=== PATIENT | female | born 1955 | race Caucasian/White ===

== ENCOUNTER → 2016-07-28 | Outpatient (CLI) | payer BC ==
[~2016-07-28] MED LIST: ATOR10TA88 PO; EPP3/2 IM; HYDR12.55 PO; METO25TA3 PO; PARO10TA PO; vitamin d PO
--- NOTE | 2016-07-28 09:42 | DIAGNOSTIC IMAGING REPORT ---
TWO VIEW CHEST CLINICAL HISTORY: Cough. FINDINGS: PA and lateral chest radiographs are compared to study dated 10/15/2013. The cardiomediastinal silhouette is unremarkable. There is atherosclerotic calcification of the thoracic aorta. Chronic interstitial thickening is unchanged. No airspace consolidation or pleural effusion is identified. Mild apical scarring is observed. There is no pneumothorax. The skeletal structures are osteopenic. The bony thorax appears intact. IMPRESSION: No active disease in the chest. Electronically signed by: Andre Knight M.D. 07/28/2016 9:40 AM Dictated Date/Time: 07/28/2016 9:39 AM
== END | disposition home or self-care (01) ==
LOC: C.RAD1850 09:33
PROVIDERS: ATTEND Family Medicine
DX: R05 Cough (principal); R09.89 Other specified symptoms and signs involving the circulatory and respiratory systems

== ENCOUNTER → 2016-08-01 | Outpatient (CLI) | payer BC ==
--- NOTE | 2016-08-01 13:36 | DIAGNOSTIC IMAGING REPORT ---
RIGHT FOOT 3 VIEWS HISTORY: RIGHT FOOT PAIN Right COMPARISON: None. FINDINGS: There is no fracture or dislocation. Soft tissues are unremarkable. The Lisfranc joint is well aligned. There are mild degenerative changes seen throughout the foot. This most pronounced at the first MTP joint. There is a large plantar heel spur. IMPRESSION: 1. No fracture or dislocation within the right foot. 2. Plantar heel. 3. Mild degenerative changes. Electronically signed by: Travis Mcguire M.D. 08/01/2016 1:34 PM Dictated Date/Time: 08/01/2016 1:32 PM
== END | disposition home or self-care (01) ==
LOC: C.RDSM 14:30
PROVIDERS: ATTEND Physical Medicine & Rehabilitation Sports Medicine
DX: M79.671 Pain in right foot (principal)

== ENCOUNTER → 2016-09-22 | Outpatient (CLI) | payer BC ==
--- NOTE | 2016-09-22 12:05 | DIAGNOSTIC IMAGING REPORT ---
CHEST 2 VIEWS ROUTINE HISTORY: Short of breath. Fatigue. COMPARISON: Chest 07/28/2016. FINDINGS: Small irregular density within the left lung base adjacent to the heart border on the frontal view is not confirmed on the lateral view. This could be due to summation of shadows. Otherwise, the lungs are clear. The heart is normal in size. No pleural effusions. No pneumothorax. IMPRESSION: No acute process. Electronically signed by: Travis Mcguire M.D. 09/22/2016 12:04 PM Dictated Date/Time: 09/22/2016 11:57 AM
== END | disposition home or self-care (01) ==
LOC: C.RAD1850 11:46
PROVIDERS: ATTEND Nurse Practitioner Family
DX: R05 Cough (principal); R06.02 Shortness of breath; R53.83 Other fatigue

== ENCOUNTER 2016-10-10 08:33 | Day surgery (SDC) | payer BC ==
[~2016-10-10 08:33] MED LIST changes: -ATOR10TA88 PO; -METO25TA3 PO; -vitamin d PO
[2016-11-21] MEDS ORDERED: METO25TA3 PO (08:55)
[2016-11-21] MEDS ORDERED: ATOR10TA82 PO (08:55)
[2016-11-21] MEDS ORDERED: vitamin d PO (08:55)
--- NOTE | 2016-11-25 07:18 | EDITING REQUIRED CODING QUERY ---
TREATMENT RENDERED WITHOUT A DIAGNOSIS To promote full compliance with coding requirements relating to patient care, physician participation is requested in all cases of clerical supervisor uncertainty. Please assist us with the question(s) below: Coding Question: The patient is receiving IV RECLAST, as noted in the ORDER HISTORY of the record. Please document the diagnosis that is being addressed by the medication/treatment. Provider Response: Thank you Waleska Cates
== END 2016-11-18 10:40 | disposition home or self-care (01) ==
LOC: C.MTU 08:33
PROVIDERS: ATTEND Family Medicine
DX: M81.0 Age-related osteoporosis without current pathological fracture (principal); Z53.09 Procedure and treatment not carried out because of other contraindication

== ENCOUNTER → 2016-11-06 | Outpatient (CLI) | payer BC ==
[~2016-11-06] MED LIST changes: +ATOR10TA82 PO; +METO25TA3 PO; +vitamin d PO
--- NOTE | 2016-11-06 12:26 | DIAGNOSTIC IMAGING REPORT ---
CHEST 2 VIEWS ROUTINE CLINICAL HISTORY: R05, R07.89 CHEST TIGHTNESS COMPARISON STUDY: 09/22/2016 FINDINGS: The cardiac and mediastinal contours are normal. There is no evidence of focal pulmonary consolidation. There is no evidence of failure. No pleural effusions are visualized.[ There is a stable small triangle opacity adjacent the left heart border inferiorly. This remain similar to 2014, and likely reflects atelectasis or scar. IMPRESSION: No active disease in the chest. Electronically signed by: Francisco Baker M.D. 11/06/2016 12:24 PM Dictated Date/Time: 11/06/2016 12:23 PM
== END | disposition home or self-care (01) ==
LOC: C.RAD1850 12:14
PROVIDERS: ATTEND Nurse Practitioner Family
DX: R05 Cough (principal); R07.89 Other chest pain

== ENCOUNTER → 2016-11-21 | Day surgery (SDC) | payer BC ==
[~2016-11-21] VITALS: Ht 165.1 cm; Wt 90.0 kg
[~2016-11-21] MED LIST changes: +ZOLEDRONIC ACID INJ 5 MG in EMPTY BAG 0 ML IV SCH
[2016-11-21 08:37] VITALS: BP 174/88; PULSE 73; TEMP 36.1; O2SAT 97; Ht 165.1 cm; Wt 90.0 kg
== END | disposition home or self-care (01) ==
LOC: C.MTU 08:17
PROVIDERS: ATTEND Family Medicine
DX: M81.0 Age-related osteoporosis without current pathological fracture (principal)

== ENCOUNTER → 2017-04-13 | Outpatient (CLI) | payer BC ==
[~2017-04-13] MED LIST changes: -ATOR10TA82 PO; +ATOR10TA88 PO; -HYDR12.55 PO; -ZOLEDRONIC ACID INJ 5 MG in EMPTY BAG 0 ML IV SCH
== END | disposition home or self-care (01) ==
LOC: C.RDSM 10:29
PROVIDERS: ATTEND Physical Medicine & Rehabilitation Sports Medicine
DX: M77.51 Other enthesopathy of right foot and ankle (principal)

== ENCOUNTER → 2017-04-24 | Outpatient (CLI) | payer BC ==
--- NOTE | 2017-04-24 15:47 | MAMMOGRAPHY REPORT ---
BILATERAL DIGITAL SCREENING MAMMOGRAM TOMOSYNTHESIS WITH CAD: 04/24/2017 CLINICAL HISTORY: Routine screening. Patient has no complaints. TECHNIQUE: Breast tomosynthesis in addition to standard 2D mammography was performed. Current study was also evaluated with a Computer Aided Detection (CAD) system. COMPARISON: Comparison is made to exams dated: 04/18/2016 mammogram, 02/22/2014 mammogram, 02/16/2013 ma mmogram, 02/11/2012 mammogram, 02/03/2011 mammogram, and 01/30/2010 mammogram - [facility] nter. BREAST COMPOSITION: There are scattered areas of fibroglandular density in both breasts. FINDINGS: No suspicious masses, calcifications, or areas of architectural distortion are noted in ei ther breast. There has been no significant interval change compared to prior exams. Scattered bilater al benign-appearing calcifications are not significantly changed. A linear scar marker denotes a sca r on the right upper outer breast. IMPRESSION: ACR BI-RADS CATEGORY 2: BENIGN There is no mammographic evidence of malignancy. A 1 year screening mammogram is recommended. The pa tient will receive written notification of the results. Approximately 10% of breast cancers are not detected with mammography. A negative mammographic report should not delay biopsy if a clinically suggestive mass is present. Bruna Garcia M.D. /:04/24/2017 10:48:26 Plastic Surgery Assistant: Zainab Ivy, [facility] letter sent: Normal 1/2 BI-RADS Code: ACR BI-RADS Category 2: Benign
== END | disposition home or self-care (01) ==
LOC: C.MAMM 08:55
PROVIDERS: ATTEND Family Medicine
DX: Z12.31 Encounter for screening mammogram for malignant neoplasm of breast (principal)

== ENCOUNTER 2017-07-10 14:41 | Emergency (ER) | payer BC ==
[~2017-07-10] VITALS: Ht 165.1 cm; Wt 94.8 kg
[~2017-07-10 14:41] MED LIST changes: +ATOR10TA82 PO; -ATOR10TA88 PO; -PARO10TA PO
[2017-07-10 14:46] VITALS: TEMP 36.7; Ht 165.1 cm; Wt 94.8 kg
[2017-07-10] MEDS ORDERED: PARO10TA PO (14:55)
[2017-07-10] MEDS ORDERED: KETOROLAC TROMETHAMINE 30 MG/ML VIAL IV STA (14:56)
[2017-07-10] MEDS ORDERED: AMPICILLIN/SULBACTAM SOD INJ 3,000 MG in SODIUM CHLORIDE 0.9% 100ML 100 ML IV STA (14:56)
[2017-07-10 15:27] LABS: BASO % 0.3 %; BASO ABS # 0.03 K/uL (0-0.2); COMPLETE YES; EOS % 1.4 %; HEMATOCRIT 39.9 % (37-47); IG% 0.2 %; LYMPH % 16.1 %; LYMPH ABS # 1.85 K/uL (1.2-3.4); MEAN CELL VOLUME 97.6 fL (80-100); MEAN CORPUSCULAR HGB CONC 33.8 g/dl (32-36); MONO % 9.5 %; NEUT % 72.5 %; PLATELET COUNT 226 K/uL (130-400); RED BLOOD COUNT 4.09 M/uL (4.2-5.4); WHITE BLOOD COUNT 11.51 K/uL (4.8-10.8)
[2017-07-10 15:34] LABS: BUN/CREATININE RATIO 21.8 (10-20); C-REACTIVE PROTEIN 9.92 mg/dl (0-0.29); CALCIUM 9.1 mg/dl (8.5-10.1); CREATININE 0.87 mg/dl (0.60-1.20); POTASSIUM 3.8 mmol/L (3.5-5.1)
--- NOTE | 2017-07-10 15:48 | DIAGNOSTIC IMAGING REPORT ---
L HAND MIN 3 VIEWS ROUTINE CLINICAL HISTORY: Cat bite L hand with infection. COMPARISON: None FINDINGS: Alignment of the left hand is anatomic. A sclerotic focus within the distal phalanx of the left thumb is benign. There is no fracture. There is no radiographic evidence of osteomyelitis within the left hand or wrist. Lateral view demonstrates suspected mild soft tissue swelling of the dorsal left hand. IMPRESSION: No fracture or evidence of osteomyelitis within the left hand. Electronically signed by: Morgan Moore M.D. 07/10/2017 3:46 PM Dictated Date/Time: 07/10/2017 3:44 PM
[2017-07-10] MEDS ORDERED: METR-163 PO (15:51)
[2017-07-10] MEDS ORDERED: DOXY100C PO (15:51)
--- NOTE | 2017-07-10 15:55 | EMERGENCY ROOM VISIT NOTE ---
History First contact with patient: 14:48 Chief Complaint: BITE Stated Complaint: L HAND PAIN,SWELLING/REDNESS, CAT BITE History of Present Illness The patient is a 62 year old female who presents to the Emergency Room with complaints of progressively worsening infection to the left hand after being bitten by her cat Thursday evening. 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 The patient reports progressively worsening swelling, redness and pain. She denies any fevers or chills, and rates her discomfort an 8 out of 10. The patient is [id number]. She denies any paresthesias or numbness of the left upper extremity. Tetanus immunization is up-to-date. She also reports that the cats rabies series is also up-to-date. Review of Systems HEENT: Denies dizziness, visual problems, hearing loss, tinnitus. Denies difficulty swallowing or oral lesions. PULMONARY: Denies cough, shortness of breath, sputum production or hemoptysis. CARDIOVASCULAR: Denies chest pain, palpitations, dyspnea on exertion, orthopnea or peripheral edema. GASTROINTESTINAL: Denies diarrhea, constipation, nausea, vomiting, or abdominal pain. GENITOURINARY: Denies dysuria, frequency, urgency or nocturia. NEUROLOGIC: Denies history of epilepsy, CVA, TIA or chronic headaches. MUSCULOSKELETAL: Denies history of joint tenderness/swelling. SKIN: Denies rashes or lesions. PSYCHIATRIC: Denies history of depression or mental illness. ENDOCRINE: Denies history of diabetes or thyroid disorders. Past Medical/Surgical History Medical Problems: (1) Depressive Disorder Nec (2) History Of Tobacco Use (3) Hyperlipidemia Nec/Nos (4) Hypertension Nos Family History Unremarkable Social History Smoking Status: Never Smoker Alcohol Use: occasionally Occupation Status: employed Current/Historical Medications Scheduled Atorvastatin (Lipitor), 10 MG PO DAILY Doxycycline Hyclate (Vibramycin), 100 MG PO BID Epinephrine (Epipen), 0.3 MG IM UD Metoprolol Succinate (Toprol Xl), 25 MG PO BID Metronidazole (Flagyl), 500 MG PO TID Paroxetine Hcl (Paxil), 10 MG PO DAILY [vitamin d], 2,000 INTER.UNIT PO DIRECTED Physical Exam Vital Signs Date Time Temp Pulse Resp B/P (MAP) Pulse Ox O2 Delivery O2 Flow Rate FiO2 07/10/17 14:46 36.7 88 18 153/93 96 Room Air Physical Exam CONSTITUTIONAL: Healthy and well nourished. Alert and oriented X 3 with positive affect. Patient does not appear acutely ill or toxic. HEENT: Normocephalic, atraumatic. Pupils equal, round and reactive. NECK: Full active range of motion without discomfort. RESPIRATORY: Clear to auscultation bilaterally with no wheezing, crackles, rhonchi or stridor. CARDIOVASCULAR: Regular rate and rhythm with no murmurs, rubs or gallops. MUSCULOSKELETAL: Examination of the left hand shows evidence for prior puncture wounds dorsally. She also has notable erythema that extends just past the extensor crease of the wrist. She has minimal tenderness to palpation through the dorsal forearm, and no tenderness to palpation through the flexor tendons. Capillary refill is less than 2 seconds. INTEGUMENTARY: No rash or other significant dermatologic conditions noted. NEUROLOGIC: Left hand and fingers are sensory intact. Medical Decision & Procedures ER Provider Diagnostic Interpretation: My interpretation of left hand x-rays does not show any fractures, dislocations , radiopaque foreign bodies or evidence for osteomyelitis. Radiologist report is as follows: L HAND MIN 3 VIEWS ROUTINE CLINICAL HISTORY: Cat bite L hand with infection. COMPARISON: None FINDINGS: Alignment of the left hand is anatomic. A sclerotic focus within the distal phalanx of the left thumb is benign. There is no fracture. There is no radiographic evidence of osteomyelitis within the left hand or wrist. Lateral view demonstrates suspected mild soft tissue swelling of the dorsal left hand. IMPRESSION: No fracture or evidence of osteomyelitis within the left hand. Laboratory Results 07/10/17 15:00 Red Blood Count 4.09, Mean Corpuscular Volume 97.6, Mean Corpuscular Hemoglobin 33.0, Mean Corpuscular Hemoglobin Concent 33.8, Mean Platelet Volume 10.0, Neutrophils (%) (Auto) 72.5, Lymphocytes (%) (Auto) 16.1, Monocytes (%) (Auto) 9.5, Eosinophils (%) (Auto) 1.4, Basophils (%) (Auto) 0.3, Neutrophils # (Auto) 8.36, Lymphocytes # (Auto) 1.85, Monocytes # (Auto) 1.09, Eosinophils # (Auto) 0.16, Basophils # (Auto) 0.03 07/10/17 15:00 Test 07/10/17 15:00 White Blood Count 11.51 K/uL (4.8-10.8) Red Blood Count 4.09 M/uL (4.2-5.4) Hemoglobin 13.5 g/dL (12.0-16.0) Hematocrit 39.9 % (37-47) Mean Corpuscular Volume 97.6 fL (80-100) Mean Corpuscular Hemoglobin 33.0 pg (25-34) Mean Corpuscular Hemoglobin Concent 33.8 g/dl (32-36) Platelet Count 226 K/uL (130-400) Mean Platelet Volume 10.0 fL (7.4-10.4) Neutrophils (%) (Auto) 72.5 % Lymphocytes (%) (Auto) 16.1 % Monocytes (%) (Auto) 9.5 % Eosinophils (%) (Auto) 1.4 % Basophils (%) (Auto) 0.3 % Neutrophils # (Auto) 8.36 K/uL (1.4-6.5) Lymphocytes # (Auto) 1.85 K/uL (1.2-3.4) Monocytes # (Auto) 1.09 K/uL (0.11-0.59) Eosinophils # (Auto) 0.16 K/uL (0-0.5) Basophils # (Auto) 0.03 K/uL (0-0.2) RDW Standard Deviation 46.8 fL (36.4-46.3) RDW Coefficient of Variation 13.1 % (11.5-14.5) Immature Granulocyte % (Auto) 0.2 % Immature Granulocyte # (Auto) 0.02 K/uL (0.00-0.02) Erythrocyte Sedimentation Rate 19 mm/hr (0-21) Anion Gap 6.0 mmol/L (3-11) Est Creatinine Clear Calc Drug Dose 74.4 ml/min Estimated GFR () 81.6 Estimated GFR (Non- 70.4 BUN/Creatinine Ratio 21.8 (10-20) Calcium Level 9.1 mg/dl (8.5-10.1) C-Reactive Protein 9.92 mg/dl (0-0.29) The above labs were reviewed. Patient has a mild leukocytosis without bandemia. Left shift is noted. CRP is also markedly elevated with a normal sedimentation rate. Medications Administered Medications (Trade) Dose Ordered Sig/Louann Route Start Time Stop Time Status Last Admin Dose Admin Ampicillin Sodium/ Sulbactam Sodium 3000 mg/Sodium Chloride 108 ml @ 200 mls/hr NOW STAT IV 07/10/17 14:56 07/10/17 15:28 DC 07/10/17 15:19 200 MLS/HR Ketorolac Tromethamine (Toradol Inj) 30 mg NOW STAT IV 07/10/17 14:56 07/10/17 15:07 DC 07/10/17 15:20 30 MG ED Course Patient history and physical exam were performed. Nurse's notes were reviewed. Vital signs were reviewed. The patient is hypertensive with a blood pressure 153/93. She is afebrile and not tachycardic. Examination shows evidence for a localized hand cellulitis. Based on clinical exam, I do not suspect an infectious tenosynovitis at this point. I did suggest administering IV antibiotics, and the patient was in agreement. I also discussed the case further with our hospital pharmacist, especially given that the patient has already had 3 doses of Augmentin and IM Rocephin without relief. The pharmacist recommended IV Unasyn, followed by a combination doxycycline and Flagyl antibiotic regimen. I will also have the patient return in 24 hours for a wound recheck. IV access was established, and labs were drawn. Review of labs shows a mild leukocytosis with left shift and no bandemia. CRP is also markedly elevated without elevated sedimentation rate. X-rays of the left hand were normal. The patient was administered Unasyn 3 g IV infusion. The patient will be provided prescriptions for doxycycline 100 mg twice a day and Flagyl 500 mg 3 times a day 10 days. The patient will return in 24 hours to be rechecked by me , but was instructed to return sooner for any progressively worsening redness, swelling, pain or developing fever. The patient was happy with plan of care, and voiced understanding of all discharge instructions. The patient was also encouraged to follow-up with her PCP to discuss her elevated blood pressure reading. Medical Decision Medication Reconcilliation Current Medication List: was personally reviewed by me Blood Pressure Screening Patient's blood pressure: Elevated blood pressure Blood pressure disposition: Referred to PCP Impression Primary Impression: Cat bite of left hand with infection Additional Impression: Elevated blood pressure reading Departure Information Prescriptions Metronidazole (Flagyl) 500 Mg Tab 500 MG PO TID for Pain for 10 Days, #30 TAB For Initial Treatment Prov: Pedro Pablo Lemos PA 07/10/17 Doxycycline Hyclate (VIBRAMYCIN) 100 Mg Cap 100 MG PO BID for 10 Days, #20 CAP Prov: Pedro Pablo Lemos PA 07/10/17 Referrals Nba Mcgee M.D. (PCP) Patient Instructions [facility] Problem Qualifiers Primary Impression: Cat bite of left hand with infection Encounter type: initial encounter Qualified Codes: S61.452A - Open bite of left hand, initial encounter; L08.9 - Local infection of the skin and subcutaneous tissue, unspecified; W55.01XA - Bitten by cat, initial encounter
[2017-07-10 16:11] VITALS: BP 127/76; PULSE 80; O2SAT 97
[2017-07-10] MEDS ORDERED: CHOL2000 PO (16:11)
[2017-07-10] MEDS ORDERED: AMOX875T PO (16:14)
[2017-07-11] MEDS ORDERED: EFF75 PO (10:36)
== END 2017-07-10 16:12 | disposition home or self-care (01) ==
LOC: C.EDB 14:42 → C.EDD 16:12
DX: S61.452A Open bite of left hand, initial encounter (principal); L08.9 Local infection of the skin and subcutaneous tissue, unspecified; I10 Essential (primary) hypertension; W55.01XA Bitten by cat, initial encounter; F32.9 Major depressive disorder, single episode, unspecified; E78.5 Hyperlipidemia, unspecified; Z87.891 Personal history of nicotine dependence

== ENCOUNTER 2017-07-11 10:10 | Inpatient (IN) | payer BC ==
[~2017-07-11] VITALS: Ht 165.1 cm; Wt 94.8 kg
[~2017-07-11 10:10] MED LIST changes: +AMOX875T PO; +CHOL2000 PO; +DOXY100C PO; +METR-163 PO; +PARO10TA PO; -vitamin d PO
[2017-07-11] MEDS ORDERED: KETOROLAC TROMETHAMINE 30 MG/ML VIAL IV STA (10:31)
[2017-07-11] MEDS ORDERED: PIPERACILLIN/TAZOBACTAM 4.5 GM/100ML D5W IV STA (10:31)
[2017-07-11] MEDS ORDERED: EFF75 PO (10:36)
[2017-07-11 11:11] LABS: BASO % 0.4 %; BASO ABS # 0.03 K/uL (0-0.2); COMPLETE YES; EOS % 3.4 %; HEMATOCRIT 37.5 % (37-47); IG% 0.3 %; LYMPH % 28.9 %; LYMPH ABS # 2.11 K/uL (1.2-3.4); MEAN CELL VOLUME 97.4 fL (80-100); MEAN CORPUSCULAR HGB CONC 33.9 g/dl (32-36); MEAN PLATELET VOLUME 9.7 fL (7.4-10.4); PLATELET COUNT 211 K/uL (130-400); RED BLOOD COUNT 3.85 M/uL (4.2-5.4)
[2017-07-11 11:15] VITALS: O2SAT 94; Ht 165.1 cm; Wt 94.8 kg
[2017-07-11 11:25] LABS: BLOOD UREA NITROGEN 15 mg/dl (7-18); BUN/CREATININE RATIO 23.3 (10-20); C-REACTIVE PROTEIN 9.49 mg/dl (0-0.29); CALCIUM 8.2 mg/dl (8.5-10.1); CARBON DIOXIDE 23 mmol/L (21-32); CHLORIDE 107 mmol/L (98-107); CREATININE 0.63 mg/dl (0.60-1.20); GLUCOSE 117 mg/dl (70-99); SODIUM 136 mmol/L (136-145)
--- NOTE | 2017-07-11 11:28 | History and Physical ---
History & Physical Date & Time of Service: Jul 11, 2017 at 11:03 Chief Complaint: L Hand Not Improving,Numb Primary Care Physician: Nba Mcgee M.D. 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 She was playing with her cat 4 days ago. The cat got excited and bit her in her hand. Cat is normal does not have any symptoms suspicious behavior for rabies. Also the cat is Up-to-date with her vaccines and does go outside in the residential neighborhood, does not interact with any wild animals. She cleaned the wound with soap and water . She was giving Augmentin but the wound and the cellulitis gets worse. She was giving ceftriaxone 1 g at the office of her Medicare physician. She also presented to the ED and received Unasyn and was discharged on doxycycline and Flagyl. Her hand continued to get worse when she presented to the ED for further evaluation. If erythema is expanding. She describes the pain being 8-10 / 10 Social History Smoking Status: Former Smoker Housing status: lives alone Occupational Status: employed Multi-Drug Resistant Organisms History of MDRO: No Allergies Coded Allergies: Niacin (Verified Allergy, Unknown, "severe skin rash", 07/11/17) Home Medications Scheduled Amoxicillin & Pot Clavulanate (Augmentin 875-125 mg), 1 TAB PO TID Atorvastatin (Lipitor), 10 MG PO DAILY Cholecalciferol (Vitamin D3), 2,000 INTER.UNIT PO DAILY Doxycycline Hyclate (Vibramycin), 100 MG PO BID Metoprolol Succinate (Toprol Xl), 25 MG PO BID Metronidazole (Flagyl), 500 MG PO TID Paroxetine Hcl (Paxil), 10 MG PO DAILY Venlafaxine Hcl (Effexor), 75 MG PO DAILY Scheduled PRN Epinephrine (Epipen), 0.3 MG IM UD PRN for Allergic Reaction Review of Systems Constitutional: No fever, No chills, No sweats, No weight loss, No weakness, No fatigue, No problem reported Eyes: No worsening of vision, No eye pain, No redness, No discharge, No diplopia, No problem reported ENT: No hearing loss, No unusual epistaxis, No nasal symptoms, No sore throat, No tinnitus, No dental problems, No trouble swallowing, No problem reported Respiratory: No cough, No sputum, No wheezing, No shortness of breath, No dyspnea on exertion, No dyspnea at rest, No hemoptysis, No problem reported Cardiovascular: No chest pain, No orthopnea, No PND, No edema, No claudication , No palpitations, No problem reported Abdomen: No pain, No nausea, No vomiting, No diarrhea, No constipation, No GI bleeding, No problem reported Musculoskeletal: + problem reported (left hand pain/swelling/erythema), No joint pain, No muscle pain, No swelling, No calf pain Genitourinary - Female: No dysuria, No urinary frequency, No urinary urgency, No urinary incontinence, No urinary retention, No hematuria, No dysmenorrhea, No menorrhagia, No metrorrhagia, No rash, No vaginal bleeding, No vaginal discharge, No vaginal itching, No vulvodynia, No , No problem reported Neurologic: No memory loss, No paralysis, No weakness, No numbness/tingling, No vertigo, No balance problems, No problem reported Psychiatric: No depression symptoms, No anhedonism, No anxiety, No insomnia, No substance abuse, No problem reported Endocrine: No fatigue, No excessive thirst, No excessive urination, No problem reported Hematologic / Lymphatic: No abnormal bleeding/bruising, No clotting problems, No swollen lymph nodes, No night sweats, No problem reported Integumentary: No rash, No itch, No new/changing skin lesions, No color change , No bleeding, No problem reported Physical Exam Vital Signs Date Time Temp Pulse Resp B/P (MAP) Pulse Ox O2 Delivery O2 Flow Rate FiO2 07/11/17 10:14 36.8 86 20 160/93 94 Room Air General Appearance: WD/WN, no apparent distress Head: normocephalic, atraumatic Eyes: normal inspection, EOMI ENT: normal ENT inspection, hearing grossly normal Neck: supple Respiratory/Chest: chest non-tender, lungs clear, normal breath sounds, no respiratory distress, no accessory muscle use Cardiovascular: regular rate, rhythm, no edema, no gallop, no JVD, no murmur, normal peripheral pulses Abdomen/GI: normal bowel sounds, non tender, soft, no organomegaly, no pulsatile mass Back: normal inspection, no CVA tenderness Extremities/Musculoskelatal: normal inspection, + pertinent finding (left hand tenderness/swelling/erythema, capillary filling is normal, normal pulsation) Neurologic/Psych: departure clerk II-XII nml as tested, no motor/sensory deficits, alert, normal mood/affect, normal reflexes, oriented x 3 Skin: normal color, warm/dry, no rash Diagnostics Laboratory Results Results Past 24 Hours Test 07/11/17 10:31 Range/Units Microbiology Results 07/11/17 Blood Culture, Ordered Pending 07/11/17 Blood Culture, Ordered Pending Impression Assessment and Plan 62 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 Patient failed outpatient Augmentin/doxycycline/Flagyl. This is her second visit to the ED after her wound got worse. Cat is up-to-date with her vaccines. In-home cat, only walks i the residential neighborhood , no interaction with animals. 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
[2017-07-11] MEDS ORDERED: ACETAMINOPHEN 325 MG TAB PO PRN (11:30)
[2017-07-11] MEDS ORDERED: POLYETHYLENE (MIRALAX) 17 GM PACK PO PRN (11:30)
[2017-07-11] MEDS ORDERED: ZOLPIDEM TARTRATE 5 MG TAB PO PRN (11:30)
[2017-07-11] MEDS ORDERED: ALUMINUM/MAGNESIUM/SIMETH (MAALOX MAX) 30 ML UDC PO PRN (11:30)
[2017-07-11] MEDS ORDERED: MAGNESIUM HYDROXIDE SUSP 30 ML UDC PO PRN (11:30)
[2017-07-11] MEDS ORDERED: ONDANSETRON INJ 2 MG/ML 2 ML VIAL IV STA (11:38)
[2017-07-11] MEDS ORDERED: MoRPHine SULFATE 4 MG/ML 1 ML CARP\\VIAL IV STA (11:38)
[2017-07-11] MEDS ORDERED: OPTIRAY 320 IV PRN (11:45)
--- NOTE | 2017-07-11 12:06 | EMERGENCY ROOM VISIT NOTE ---
History First contact with patient: 10:20 Chief Complaint: ARM PAIN Stated Complaint: L HAND NOT IMPROVING,NUMB History of Present Illness The patient is a 62 year old female who presents to the Emergency Room with complaints of progressively worsening infection of the left hand. I saw this patient yesterday in the emergency department for evaluation after suffering a cat bite to the hand Thursday night. The patient was administered Rocephin 1 g IM the following morning, and completed a 3 dose course of Augmentin without any improvement of her symptoms. When I saw the patient yesterday, I spoke with our hospital pharmacist who recommended switching the patient to doxycycline and Flagyl. The patient reports progressively worsening swelling, redness and pain, rating her discomfort an 8 out of 10. The patient is right- hand-dominant. Review of Systems HEENT: Denies dizziness, visual problems, hearing loss, tinnitus. Denies difficulty swallowing or oral lesions. PULMONARY: Denies cough, shortness of breath, sputum production or hemoptysis. CARDIOVASCULAR: Denies chest pain, palpitations, dyspnea on exertion, orthopnea or peripheral edema. GASTROINTESTINAL: Denies diarrhea, constipation, nausea, vomiting, or abdominal pain. GENITOURINARY: Denies dysuria, frequency, urgency or nocturia. NEUROLOGIC: Denies history of epilepsy, CVA, TIA or chronic headaches. MUSCULOSKELETAL: Denies history of joint tenderness/swelling. SKIN: Denies rashes or lesions. PSYCHIATRIC: Denies history of depression or mental illness. ENDOCRINE: Denies history of diabetes or thyroid disorders. Past Medical/Surgical History Medical Problems: (1) Cellulitis of hand (2) Depressive Disorder Nec (3) History Of Tobacco Use (4) Hyperlipidemia Nec/Nos (5) Hypertension Nos Family History Unremarkable Social History Smoking Status: Former Smoker Alcohol Use: occasionally Occupation Status: employed Current/Historical Medications Scheduled Amoxicillin & Pot Clavulanate (Augmentin 875-125 mg), 1 TAB PO TID Atorvastatin (Lipitor), 10 MG PO DAILY Cholecalciferol (Vitamin D3), 2,000 INTER.UNIT PO DAILY Doxycycline Hyclate (Vibramycin), 100 MG PO BID Metoprolol Succinate (Toprol Xl), 25 MG PO BID Metronidazole (Flagyl), 500 MG PO TID Paroxetine Hcl (Paxil), 10 MG PO DAILY Venlafaxine Hcl (Effexor), 75 MG PO DAILY Scheduled PRN Epinephrine (Epipen), 0.3 MG IM UD PRN for Allergic Reaction Physical Exam Vital Signs Date Time Temp Pulse Resp B/P (MAP) Pulse Ox O2 Delivery O2 Flow Rate FiO2 07/11/17 11:15 94 Room Air 07/11/17 10:45 72 20 135/78 96 Room Air 07/11/17 10:14 36.8 86 20 160/93 94 Room Air Physical Exam CONSTITUTIONAL: Healthy and well nourished. Alert and oriented X 3 with positive affect. Patient appears in moderate discomfort. HEENT: Normocephalic, atraumatic. Pupils equal, round and reactive. NECK: Full active range of motion without discomfort. RESPIRATORY: Clear to auscultation bilaterally with no wheezing, crackles, rhonchi or stridor. CARDIOVASCULAR: Regular rate and rhythm with no murmurs, rubs or gallops. GASTROINTESTINAL: Bowel sounds present in all quadrants. Soft and nontender to palpation. MUSCULOSKELETAL: Examination of the left upper extremity shows worsening edema and erythema of the dorsal left hand. Erythema and edema now extends into the dorsal mid forearm, having advanced from the extensor crease since yesterday. She also has worsening discomfort with passive flexion and extension of the fingers and wrist. Capillary refill of the fingers is less than 2 seconds. INTEGUMENTARY: No rash or other significant dermatologic conditions noted. NEUROLOGIC: No focal neurologic deficits noted. Left hand and fingers are grossly sensory intact. Medical Decision & Procedures Laboratory Results 07/11/17 10:45 Red Blood Count 3.85, Mean Corpuscular Volume 97.4, Mean Corpuscular Hemoglobin 33.0, Mean Corpuscular Hemoglobin Concent 33.9, Mean Platelet Volume 9.7, Neutrophils (%) (Auto) 58.0, Lymphocytes (%) (Auto) 28.9, Monocytes (%) (Auto) 9.0, Eosinophils (%) (Auto) 3.4, Basophils (%) (Auto) 0.4, Neutrophils # (Auto) 4.23, Lymphocytes # (Auto) 2.11, Monocytes # (Auto) 0.66, Eosinophils # (Auto) 0.25, Basophils # (Auto) 0.03 07/11/17 10:45 Test 07/11/17 10:45 07/11/17 10:54 07/11/17 11:36 White Blood Count 7.30 K/uL (4.8-10.8) Red Blood Count 3.85 M/uL (4.2-5.4) Hemoglobin 12.7 g/dL (12.0-16.0) Hematocrit 37.5 % (37-47) Mean Corpuscular Volume 97.4 fL (80-100) Mean Corpuscular Hemoglobin 33.0 pg (25-34) Mean Corpuscular Hemoglobin Concent 33.9 g/dl (32-36) Platelet Count 211 K/uL (130-400) Mean Platelet Volume 9.7 fL (7.4-10.4) Neutrophils (%) (Auto) 58.0 % Lymphocytes (%) (Auto) 28.9 % Monocytes (%) (Auto) 9.0 % Eosinophils (%) (Auto) 3.4 % Basophils (%) (Auto) 0.4 % Neutrophils # (Auto) 4.23 K/uL (1.4-6.5) Lymphocytes # (Auto) 2.11 K/uL (1.2-3.4) Monocytes # (Auto) 0.66 K/uL (0.11-0.59) Eosinophils # (Auto) 0.25 K/uL (0-0.5) Basophils # (Auto) 0.03 K/uL (0-0.2) RDW Standard Deviation 46.9 fL (36.4-46.3) RDW Coefficient of Variation 13.2 % (11.5-14.5) Immature Granulocyte % (Auto) 0.3 % Immature Granulocyte # (Auto) 0.02 K/uL (0.00-0.02) Erythrocyte Sedimentation Rate 21 mm/hr (0-21) Anion Gap 6.0 mmol/L (3-11) Estimated GFR () 109.9 Estimated GFR (Non- 94.8 BUN/Creatinine Ratio 23.3 (10-20) Calcium Level 8.2 mg/dl (8.5-10.1) C-Reactive Protein 9.49 mg/dl (0-0.29) Bedside Lactic Acid Venous 0.75 mmol/L (0.90-1.70) The above labs were reviewed. Compared to 24 hours ago, the patient's leukocytosis has resolved. She still has a markedly elevated CRP without levators sedimentation rate. Bedside lactate is also normal. Blood cultures 2 were ordered and are pending. Medications Administered Medications (Trade) Dose Ordered Sig/Louann Route Start Time Stop Time Status Last Admin Dose Admin Ketorolac Tromethamine (Toradol Inj) 30 mg NOW STAT IV 07/11/17 10:31 07/11/17 10:35 DC 07/11/17 10:40 30 MG Piperacillin Sod/ Tazobactam Sod (Zosyn Iv) 4.5 gm NOW STAT IV 07/11/17 10:31 07/11/17 10:35 DC 07/11/17 10:31 4.5 GM Morphine Sulfate (MoRPHine SULFATE INJ) 4 mg NOW STAT IV 07/11/17 11:38 07/11/17 11:39 DC 07/11/17 11:47 4 MG Ondansetron HCl (Zofran Inj) 4 mg NOW STAT IV 07/11/17 11:38 07/11/17 11:39 DC 07/11/17 11:47 4 MG ED Course Patient history and physical exam were performed. Nurse's notes were reviewed. Vital signs were reviewed. The patient remains afebrile and not tachycardic. Her blood pressure again is elevated at 160/93. The patient appears in moderate discomfort. Her clinical exam shows a worsening infection. At this point, I suggested hospitalist and orthopedic management, and the patient was in agreement. IV access was established, and labs were drawn, including blood cultures 2 and point of care lactate. The patient was administered IV Toradol for pain, refusing any stronger analgesics on initial exam. The patient was also ordered Zosyn 4.5 g IV infusion. Review of labs The case was further discussed with Dr. Garduno, ED attending physician, who recommended hospitalist consultation. The case was then discussed with the [facility] hospitalist service. Please see their dictation for further treatment and final disposition. I also spoke with Dr. Pavon, orthopedic surgeon bone drier operator, who also recommended IV antibiotic treatment , and at this point nonsurgical management. Prior to transfer of care to the hospitalist service, the patient did request something additional for pain, and was ordered morphine 4 mg and Zofran 4 mg IVP. Medical Decision Patient presents after failing outpatient management of a cat bite to the left hand. The patient has been treated with multiple antibiotics at this point with oral Augmentin, intramuscular Rocephin, and most recently a combination therapy of doxycycline and Flagyl. I do feel that the patient warrants inpatient management with intravenous antibiotics. Medication Reconcilliation Current Medication List: was personally reviewed by me Blood Pressure Screening Patient's blood pressure: Elevated blood pressure Impression Primary Impression: Cat bite of left hand with infection Departure Information Referrals Nba Mcgee M.D. (PCP) Patient Instructions My [facility] Problem Qualifiers Primary Impression: Cat bite of left hand with infection Encounter type: subsequent encounter Qualified Codes: S61.452D - Open bite of left hand, subsequent encounter; L08.9 - Local infection of the skin and subcutaneous tissue, unspecified; W55.01XD - Bitten by cat, subsequent encounter
[2017-07-11] MEDS ORDERED: VANCOMYCIN CONSULT ACTIVE PRN (12:15)
--- NOTE | 2017-07-11 12:28 | DIAGNOSTIC IMAGING REPORT ---
LEFT HAND CT CT DOSE: 519.94 mGy.cm HISTORY: cellulitis left hand/ forearm TECHNIQUE: Multiaxial CT images of the left hand were performed and reformatted in the sagittal and coronal plane following the use of intravenous contrast. A dose lowering technique was utilized adhering to the principles of ALARA. COMPARISON: Left hand 07/10/2017. FINDINGS: Mild subcutaneous edema and skin thickening within the dorsum of the hand. No loculated fluid collections to suggest an abscess. The major vessels appear patent. The deep soft tissues appear intact. No soft tissue gas identified. No fracture or dislocation within the hand. No underlying bony destruction to suggest osteomyelitis. IMPRESSION: Mild subcutaneous edema and skin thickening within the dorsum of the hand suggestive of a cellulitis. No loculated fluid collections to suggest an abscess. Electronically signed by: Travis Mcguire M.D. 07/11/2017 12:27 PM Dictated Date/Time: 07/11/2017 12:23 PM
[2017-07-11 12:30] VITALS: BP 138/96; PULSE 77; TEMP 37.3; O2SAT 92
[2017-07-11] MEDS ORDERED: VANCOMYCIN INJ 2,250 MG in SODIUM CHLORIDE 0.9% 500ML 500 ML IV SCH (12:30)
[2017-07-11] MEDS: SODIUM CHLORIDE 0.9% 1000ML 1,000 ML IV SCH (13:23)
--- NOTE | 2017-07-11 13:33 | Pharmacy Progress Note ---
Pharmacy Antibiotic Consult Date of Service: Jul 11, 2017. Pharmacy Dosing Scope Pharmacy is consulted to initiate vancomycin IV dosing therapy, order appropriate labs and adjust drug dose/frequency. Subjective The patient is a 62 year old female admitted on Jul 11, 2017 at 11:33. She had cat-bite 4 days ago and cellulitis is getting worse despite outpatient antibiotics. Objective Height (Feet): 5 Height (Inches): 5.00 Weight (Kilograms): 94.800 Lab Results (24hrs): Test 07/11/17 10:45 07/11/17 10:54 07/11/17 11:36 White Blood Count 7.30 K/uL (4.8-10.8) Red Blood Count 3.85 M/uL (4.2-5.4) Hemoglobin 12.7 g/dL (12.0-16.0) Hematocrit 37.5 % (37-47) Mean Corpuscular Volume 97.4 fL (80-100) Mean Corpuscular Hemoglobin 33.0 pg (25-34) Mean Corpuscular Hemoglobin Concent 33.9 g/dl (32-36) Platelet Count 211 K/uL (130-400) Mean Platelet Volume 9.7 fL (7.4-10.4) Neutrophils (%) (Auto) 58.0 % Lymphocytes (%) (Auto) 28.9 % Monocytes (%) (Auto) 9.0 % Eosinophils (%) (Auto) 3.4 % Basophils (%) (Auto) 0.4 % Neutrophils # (Auto) 4.23 K/uL (1.4-6.5) Lymphocytes # (Auto) 2.11 K/uL (1.2-3.4) Monocytes # (Auto) 0.66 K/uL (0.11-0.59) Eosinophils # (Auto) 0.25 K/uL (0-0.5) Basophils # (Auto) 0.03 K/uL (0-0.2) RDW Standard Deviation 46.9 fL (36.4-46.3) RDW Coefficient of Variation 13.2 % (11.5-14.5) Immature Granulocyte % (Auto) 0.3 % Immature Granulocyte # (Auto) 0.02 K/uL (0.00-0.02) Erythrocyte Sedimentation Rate 21 mm/hr (0-21) Sodium Level 136 mmol/L (136-145) Potassium Level 4.0 mmol/L (3.5-5.1) Chloride Level 107 mmol/L (98-107) Carbon Dioxide Level 23 mmol/L (21-32) Anion Gap 6.0 mmol/L (3-11) Blood Urea Nitrogen 15 mg/dl (7-18) Creatinine 0.63 mg/dl (0.60-1.20) Estimated GFR () 109.9 Estimated GFR (Non- 94.8 BUN/Creatinine Ratio 23.3 (10-20) Random Glucose 117 mg/dl (70-99) Calcium Level 8.2 mg/dl (8.5-10.1) C-Reactive Protein 9.49 mg/dl (0-0.29) Bedside Lactic Acid Venous 0.75 mmol/L (0.90-1.70) Micro Results: 07/11 @1054 blood x2 pending 07/11 @ 1128 blood x2 pending Recent Pertinent Medications Item Value Date Time Vancomycin HCl 530 ml @ 150 mls/hr 07/11/17 2000 1500 mg/Sodium Q10H/IV Chloride Ampicillin Sodium/ 108 ml @ 200 mls/hr 07/11/17 1400 Sulbactam Sodium Q6H/IV 3000 mg/Sodium Chloride Vancomycin HCl 545 ml @ 200 mls/hr 07/11/17 1230 2250 mg/Sodium TODAY@1230/IV 07/11/17 1245 Chloride Piperacillin Sod/ 4.5 gm 07/11/17 1031 Tazobactam Sod NOW STAT/IV 07/11/17 1031 (Zosyn Iv) Reportedly had Augmentin, doxycycline, metronidazole prior to admission. Assessment & Plan With the patient's body habitus and normal renal function, will dose vancomycin fairly aggressively until levels and cultures are back. May consider decreasing dose at that time. Loading dose: vancomycin 2250 mg IV X 1 dose ( ~24 mg/kg) then: vancomycin 1500 mg IV every 10 hours. Note that infusion rate has been decreased to minimize irritation/flushing. Goal peak level estimate: between 25-40 mcg/mL. Goal trough level estimate: between 15 -20 mcg/mL. Trough has been ordered for: 07/12 before 1600 dose. Pharmacy will continue to follow and will adjust dose/frequency as necessary. Thank you
[2017-07-11] MEDS: OXYCODONE/ACETAMINOPHEN 10/325MG TAB PO PRN ×2 (13:37→20:33)
[2017-07-11] MEDS: LACTOBACILLUS ACIDOPHILUS 1 GM PACK PO SCH ×2 (13:38→18:17)
[2017-07-11] MEDS: HEPARIN SOD 5000 UNIT/0.5 ML CARP SQ SCH ×2 (14:21→21:32)
[2017-07-11 14:26] VITALS: BP 144/92; PULSE 77
[2017-07-11 15:30] VITALS: BP 116/74; PULSE 66; TEMP 36.4; O2SAT 90
[2017-07-11] MEDS ORDERED: DiphenhydrAMINE HCL 12.5MG/5 ML UDC PO ONE (15:45)
[2017-07-11] MEDS: AMPICILLIN/SULBACTAM SOD INJ 3,000 MG in SODIUM CHLORIDE 0.9% 100ML 100 ML IV SCH ×2 (17:02→20:33)
--- NOTE | 2017-07-11 18:30 | ORTHOPEDIC CONSULTATION ---
DATE OF CONSULTATION: 07/11/2017 CHIEF COMPLAINT: Left hand cat bite injury. 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 She was seen in clinic where she works on and was started on Augmentin and then saw Dr. Alicea later on the day and a dose of Rocephin. She continued to have pain and swelling, so she presented to the Emergency Room yesterday and was given a dose of Unasyn and then put on Flagyl and doxycycline. It is continuing to worse and she presented back to the ER today with cellulitis extending up her arm. No other injuries. No real fevers. She says she since has been admitted seems to be improving. She is having a little bit less pain and can move her fingers a bit better. PAST MEDICAL HISTORY: As per the admission H&P. OBJECTIVE: VITAL SIGNS: Temperature is 36.4. Vital signs stable. GENERAL: Reveals a healthy pleasant, middle-aged female. The patient is lying in bed and looks comfortable. EXTREMITIES: Examination of the left hand does reveal some redness on the dorsum of her hand from metacarpals back to just proximal to the wrist. There is very mild swelling. There are a couple scattered scabs, but no signs of fluctuance. She can nearly make a full fist with some mild discomfort. There is no tenderness in the flexor or palmar side of her hand at all. She can flex and extend her wrist within the limits of pain about [address] She is neurologically intact. IMAGING DATA: X-rays of the hand from yesterday were reviewed. It shows some soft tissue swelling. No signs of air or fluid collections. CT scan was reviewed and is consistent with some cellulitis. No abscess collections. ASSESSMENT: A 62-year-old female with a cat bite to the left hand consistent with some cellulitis. There are no signs of abscess, purulence or infected tenosynovitis. This should respond to IV antibiotics. PLAN: The patient has been admitted. She will continue IV antibiotics, and I imagine in a day or 2, she can probably be discharged on oral antibiotics for 2 weeks. We will continue this whether every day while she is here. Any orthopedic questions can be directed to me at [phone].
[2017-07-11] MEDS ORDERED: VANCOMYCIN INJ 1,500 MG in SODIUM CHLORIDE 0.9% 500ML 500 ML IV SCH (20:00)
[2017-07-11] MEDS ORDERED: VANCOMYCIN INJ 1,000 MG in SODIUM CHLORIDE 0.9% 250ML 250 ML IV SCH (21:00)
[2017-07-11] MEDS: VANCOMYCIN INJ 1,500 MG in SODIUM CHLORIDE 0.9% 500ML 500 ML IV SCH (21:26)
[2017-07-11] MEDS: DiphenhydrAMINE HCL 12.5MG/5 ML UDC PO SCH (21:26)
[2017-07-11 23:05] VITALS: BP 109/77; PULSE 68; TEMP 36.5; O2SAT 92
[2017-07-12] MEDS: AMPICILLIN/SULBACTAM SOD INJ 3,000 MG in SODIUM CHLORIDE 0.9% 100ML 100 ML IV SCH ×4 (01:17→19:32)
[2017-07-12] MEDS: OXYCODONE/ACETAMINOPHEN 10/325MG TAB PO PRN ×4 (01:26→22:22)
[2017-07-12 05:38] LABS: BASO % 0.2 %; BASO ABS # 0.01 K/uL (0-0.2); COMPLETE YES; EOS % 5.3 %; HEMATOCRIT 36.8 % (37-47); LYMPH ABS # 2.31 K/uL (1.2-3.4); MEAN CELL VOLUME 100.3 fL (80-100); MEAN CORPUSCULAR HEMOGLOBIN 32.4 pg (25-34); MEAN CORPUSCULAR HGB CONC 32.3 g/dl (32-36); MEAN PLATELET VOLUME 9.9 fL (7.4-10.4); MONO % 10.5 %; PLATELET COUNT 200 K/uL (130-400); RED BLOOD COUNT 3.67 M/uL (4.2-5.4); WHITE BLOOD COUNT 5.64 K/uL (4.8-10.8)
[2017-07-12] MEDS: HEPARIN SOD 5000 UNIT/0.5 ML CARP SQ SCH ×3 (06:00→22:23)
[2017-07-12 06:23] LABS: BUN/CREATININE RATIO 17.4 (10-20); CALCIUM 8.3 mg/dl (8.5-10.1); CREATININE 0.7 mg/dl (0.60-1.20); POTASSIUM 4.4 mmol/L (3.5-5.1)
[2017-07-12 06:25] LABS: ALB/GLOB RATIO 0.8 (0.9-2)
[2017-07-12 07:06] VITALS: BP 121/80; PULSE 73; TEMP 36.4; O2SAT 94
[2017-07-12] MEDS: LACTOBACILLUS ACIDOPHILUS 1 GM PACK PO SCH ×3 (08:02→17:47)
[2017-07-12] MEDS: DiphenhydrAMINE HCL 12.5MG/5 ML UDC PO SCH ×3 (08:02→19:32)
[2017-07-12] MEDS: VANCOMYCIN INJ 1,500 MG in SODIUM CHLORIDE 0.9% 500ML 500 ML IV SCH ×2 (08:02→20:41)
--- NOTE | 2017-07-12 08:50 | PROGRESS NOTE ---
DATE: 07/12/2017 SUBJECTIVE: A 62-year-old female was admitted with a left hand cellulitis from a cat bite injury in the last week. She seems to be doing better. The swelling seems to be improved. The pain has improved some overnight. No new complaints. OBJECTIVE: VITAL SIGNS: Temperature is 36.4. Vital signs stable. EXTREMITIES: Exam of the left hand reveals some mild to moderate swelling. She has got abrasions which are stable. The redness seems to have receded slightly. She can make about 75% of the cyst. There are no areas of fluctuance. LABORATORY DATA: White cell count 5.64. ASSESSMENT: A 62-year-old female with a left hand cellulitis from a cat bite with significant improvement over the past 24 hours of IV antibiotics. There is no signs or indication of abscess or need for surgical intervention. PLAN: I would recommend probably 24 or more hours of IV antibiotics followed by outpatient p.o. antibiotics. We would likely need 2 weeks of p.o. antibiotics in the outside. There is no surgical indication at this point and I do not anticipate there will be. If there are any orthopedic questions can be directed to me at [phone]. MTDD
[2017-07-12] MEDS: SODIUM CHLORIDE 0.9% 1000ML 1,000 ML IV SCH (09:00)
--- NOTE | 2017-07-12 13:22 | Hospitalist Progress Note ---
Hospitalist Progress Note Date of Service Jul 12, 2017. (Aviva Gifford PA-C) Subjective Pt evaluation today including: conversation w/ patient, physical exam, chart review, lab review, review of studies Pain: L hand, improving PO Intake: Good Voiding: no voiding problems The patient was seen and examined this morning. Pt reports doing well today. Her hand is less red and has less swelling, pain improved but not gone. She cannot squeeze her hand to make a fist yet, and has pain with wrist flexion and extension. She has pain with adduction of the wrist compared to abduction. She denies any fever, chills or sweats. (Aviva Gifford PA-C) Objective Vital Signs Date Time Temp Pulse Resp B/P (MAP) Pulse Ox O2 Delivery O2 Flow Rate FiO2 07/12/17 07:35 Room Air 07/12/17 07:06 36.4 73 16 121/80 (94) 94 Room Air 07/11/17 23:45 Room Air 07/11/17 23:05 36.5 68 16 109/77 (88) 92 Room Air 07/11/17 15:30 36.4 66 16 116/74 (88) 90 Room Air 07/11/17 15:15 Room Air 07/11/17 14:26 77 144/92 (109) (Aviva Gifford PA-C) Physical Exam General Appearance: WD/WN, no apparent distress, + obese Eyes: PERRL, EOMI ENT: hearing grossly normal, pharynx normal Neck: supple, no JVD Respiratory/Chest: lungs clear, no respiratory distress, no accessory muscle use Cardiovascular: regular rate, rhythm, no JVD, no murmur Abdomen: normal bowel sounds, non tender, soft Extremities: + pertinent finding (L hand with mild erythema, not extending past outlined border, mild swelling, + point tenderness over extensor surfaces with palpation over area of erythema. Decreased ROM with wrist flexion and extension, + pain with wrist adduction, no pain with abduction. Unable to make a fist due to pain) Neurologic/Psychiatric: alert, normal mood/affect, oriented x 3 Skin: normal color, warm/dry (Aviva Gifford PA-C) Laboratory Results Last 24 Hours Test 07/12/17 05:15 White Blood Count 5.64 K/uL Red Blood Count 3.67 M/uL Hemoglobin 11.9 g/dL Hematocrit 36.8 % Mean Corpuscular Volume 100.3 fL Mean Corpuscular Hemoglobin 32.4 pg Mean Corpuscular Hemoglobin Concent 32.3 g/dl Platelet Count 200 K/uL Mean Platelet Volume 9.9 fL Neutrophils (%) (Auto) 43.0 % Lymphocytes (%) (Auto) 41.0 % Monocytes (%) (Auto) 10.5 % Eosinophils (%) (Auto) 5.3 % Basophils (%) (Auto) 0.2 % Neutrophils # (Auto) 2.43 K/uL Lymphocytes # (Auto) 2.31 K/uL Monocytes # (Auto) 0.59 K/uL Eosinophils # (Auto) 0.30 K/uL Basophils # (Auto) 0.01 K/uL RDW Standard Deviation 48.3 fL RDW Coefficient of Variation 13.3 % Immature Granulocyte % (Auto) 0.0 % Immature Granulocyte # (Auto) 0.00 K/uL Sodium Level 138 mmol/L Potassium Level 4.4 mmol/L Chloride Level 108 mmol/L Carbon Dioxide Level 28 mmol/L Anion Gap 2.0 mmol/L Blood Urea Nitrogen 12 mg/dl Creatinine 0.70 mg/dl Est Creatinine Clear Calc Drug Dose 92.4 ml/min Estimated GFR () 106.1 Estimated GFR (Non- 91.6 BUN/Creatinine Ratio 17.4 Random Glucose 107 mg/dl Calcium Level 8.3 mg/dl Total Bilirubin 0.3 mg/dl Aspartate Amino Transf (AST/SGOT) 14 U/L Alanine Aminotransferase (ALT/SGPT) 23 U/L Alkaline Phosphatase 67 U/L Total Protein 6.0 gm/dl Albumin 2.6 gm/dl Globulin 3.4 gm/dl Albumin/Globulin Ratio 0.8 (Aviva Gifford, PABowenC) Assessment and Plan 62 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 Patient failed outpatient Augmentin/doxycycline/Flagyl. Left hand cat bite cellulitis / healthcare associated material exposure - CT wrist obtained and negative for necrotizing fascitis, only showing edema consistent with cellulitis - Orthopedics on board - recs are for 1 more day of IV abx - Continue vanc and unasyn x another day then likely can transition to Augmentin and Zyvox since failed outpatient augmentin/doxy. - No leukocytosis, afebrile Hypertension HLD Continue home medications including metoprolol 25 mg BID and atorvastatin 10 mg daily Depression - Continue paxil 10 mg and effexor 75 mg daily Mild obesity - Diet and exercise encouraged DVT prophylaxis - heparin, ambulatory Disposition: From home, lives alone, likely discharge home tomorrow CODE STATUS: FULL CODE (Aviva Gifford, TEJAS) Reviewed: Pt Seen/Exam by Me (Gabriela Norman, ) History Pt's hand redness and swelling is much improved and she is very happy with her progress. Feels she is getting closer to being able to make a fist, but not quite there yet. Was warm earlier this AM but temp was elevated in room and no recorded fever noted. Tolerating PO without issue. Agree with HPI/ROS as noted by PAC (Gabriela Norman, ) General Appearance: WD/WN, no apparent distress Respiratory: normal breath sounds, no respiratory distress Cardiovascular: normal peripheral pulses, regular rate, rhythm Gastrointestinal: non tender, soft Extremities: non-tender, no pedal edema, swelling (noted, can bend digits well distally but with limited proximal joint movement) Neurologic/Psychiatric: alert, normal mood/affect, oriented x 3 Skin Characteristics: normal color, other (hand marked with pen on admission and redness is far regressed from proximal markings, mildly pink discoloration noted distally around dorsal aspect of hand near knuckles) (Gabriela Norman, ) Assessment/Plan Agree with plan as outlined above Admitted for management of cellulitis s/p cat bite, has failed multiple abx attempts with PCP and ED Blood cx pending Ortho not planning on OR for now, will monitor CT neg for abscess (Gabriela Norman, DO)
[2017-07-12 14:50] VITALS: BP 127/81; PULSE 101; TEMP 36.8; O2SAT 94
[2017-07-12] MEDS ORDERED: VANCOMYCIN TROUGH ONE ×2 (15:30→17:30)
--- NOTE | 2017-07-12 18:42 | Pharmacy Progress Note ---
Pharmacy Abx Dose Short Note Date of Service Jul 12, 2017. Assessment & Plan Assessment 62 year old female receiving vancomycin/Unasyn for treatment of cat bite Day # 2 of antimicrobial therapy. Plan Vancomycin * Trough level of 21.1 mcg/mL is supratherapeutic. * Change to 1500 mg IV every 12 hours (reduce dose by 20%) * Goal trough level for cat bite : 15 to 20 mcg/mL * Trough ordered for: 07/14/17 prior to 0800 dose Pharmacy will continue to follow and will adjust dose/frequency as necessary. Thank you.
[2017-07-12] MEDS ORDERED: DiphenhydrAMINE HCL 12.5MG/5 ML UDC PO SCH (20:00)
[2017-07-12 20:48] VITALS: BP 151/83; PULSE 101
[2017-07-12] MEDS: METOPROLOL SUCC 25MG EXT REL TAB PO SCH (20:48)
[2017-07-12 23:10] VITALS: O2SAT 94
[2017-07-12 23:20] VITALS: BP 143/69; PULSE 91; TEMP 36.9; O2SAT 92
[2017-07-13] MEDS ORDERED: LINEZOLID 600 MG TAB PO SCH
[2017-07-13] MEDS: AMPICILLIN/SULBACTAM SOD INJ 3,000 MG in SODIUM CHLORIDE 0.9% 100ML 100 ML IV SCH ×2 (02:11→12:29)
[2017-07-13] MEDS: SODIUM CHLORIDE 0.9% 1000ML 1,000 ML IV SCH (05:37)
[2017-07-13] MEDS: HEPARIN SOD 5000 UNIT/0.5 ML CARP SQ SCH (05:39)
[2017-07-13 07:42] VITALS: BP 171/75; PULSE 62; TEMP 36.7; O2SAT 94
[2017-07-13] MEDS: DiphenhydrAMINE HCL 12.5MG/5 ML UDC PO SCH (08:28)
[2017-07-13] MEDS: LACTOBACILLUS ACIDOPHILUS 1 GM PACK PO SCH ×2 (08:29→12:30)
[2017-07-13] MEDS: METOPROLOL SUCC 25MG EXT REL TAB PO SCH (08:30)
[2017-07-13] MEDS: VANCOMYCIN INJ 1,500 MG in SODIUM CHLORIDE 0.9% 500ML 500 ML IV SCH (08:33)
[2017-07-13] MEDS ORDERED: ATORVASTATIN 10 MG TAB PO SCH (09:00)
[2017-07-13] MEDS ORDERED: VENLAFAXINE HCL 50 MG TAB PO SCH (09:00)
[2017-07-13] MEDS ORDERED: PAROXETINE 20 MG TAB PO SCH (09:00)
--- NOTE | 2017-07-13 09:23 | Discharge Instructions ---
Discharge Instructions Date of Service Jul 13, 2017. Admission Reason for Admission: Cellulitis Of Hand Discharge Discharge Diagnosis / Problem: Cellulitis of the hand Discharge Goals Goal(s): Decrease discomfort, Improve function, Increase independence, Improve disease control Activity Recommendations Activity Limitations: resume your previous activity Lifting Limitations: gradually increase as tolerated Exercise/Sports Limitations: gradually increase as tolerated May Resume Sexual Activity: when tolerated Shower/Bathe: no limitations Driving or Machine Use: no limitations . Instructions / Follow-Up Instructions / Follow-Up You were admitted to [facility] with cellulitis of the hand and diagnosed with the same, secondary to cat bite. During your stay here you were treated with intravenous antibiotics, fluids, and supportive care. Imaging studies which were completed include CT of the left upper extremities to rule out abscess or other issues, and were abnormal but only showed cellulitis. Your hand pain, redness and swelling improved with antibiotics and you were stable for discharge home. Medications: Continue taking Augmentin 875 mg twice daily x 7 more days starting tonight Continue taking Zyvox 600 mg twice daily x 7 more days starting tonight Follow up: Follow up with your Primary Care Provider within 1-2 weeks. Current Hospital Diet Patient's current hospital diet: Regular Diet Discharge Diet Recommended Diet: Regular Diet Pending Studies Studies pending at discharge: no Medical Emergencies . Who to Call and When: Medical Emergencies: If at any time you feel your situation is an emergency, please call 911 immediately. . Non-Emergent Contact Non-Emergency issues call your: Primary Care Provider Call Non-Emergent contact if: you have a fever, temperature is above 100.5, your pain is not controlled, your pain is worsening, wound has increased drainage, wound has increased redness, wound has increased pain, you have any medication questions other concerns with your health. Call 911 or go directly to the Emergency Department if you experience any of the following: Chest pain, chest tightness, shortness of breath, abdominal pain , lightheadedness, dizziness, gastrointestinal bleeding, or have any other concerns regarding your health. . . "Provider Documentation" section prepared by Eva Gifford. . VTE Core Measure Inpt VTE Proph given/why not?: Unfractionated heparin SQ, T.E.D. Stockings, SCD 's
[2017-07-13] MEDS ORDERED: LINE1TAB6 PO (09:27)
--- NOTE | 2017-07-13 10:22 | Discharge Summary ---
Discharge Summary Date of Service Jul 13, 2017. Discharge Summary Admission Date: Jul 11, 2017 at 11:33 Discharge Date: Jul 13, 2017 Discharge Disposition: Home Principal Diagnosis: Cellulitis of the left hand secondary to cat bite Problems/Secondary Diagnoses: Left hand cat bite cellulitis / healthcare associated material exposure Hypertension HLD Depression Mild obesity Procedures: LEFT HAND CT CT DOSE: 519.94 mGy.cm HISTORY: cellulitis left hand/ forearm TECHNIQUE: Multiaxial CT images of the left hand were performed and reformatted in the sagittal and coronal plane following the use of intravenous contrast. A dose lowering technique was utilized adhering to the principles of ALARA. COMPARISON: Left hand 07/10/2017. FINDINGS: Mild subcutaneous edema and skin thickening within the dorsum of the hand. No loculated fluid collections to suggest an abscess. The major vessels appear patent. The deep soft tissues appear intact. No soft tissue gas identified. No fracture or dislocation within the hand. No underlying bony destruction to suggest osteomyelitis. IMPRESSION: Mild subcutaneous edema and skin thickening within the dorsum of the hand suggestive of a cellulitis. No loculated fluid collections to suggest an abscess. Electronically signed by: Travis Mcguire M.D. 07/11/2017 12:27 PM Dictated Date/Time: 07/11/2017 12:23 PM The status of this report is Signed. Medication Reconciliation New Medications: Linezolid (Zyvox) 600 Mg Tab 600 MG PO Q12 for 6 Days, #12 TAB Continued Medications: Amoxicillin & Pot Clavulanate (Augmentin 875-125 mg) 1 Tab Tab 1 TAB PO TID, TAB PRESCRIBED 07/02/2017, TAKE DIRECTED UNTIL GONE Atorvastatin (Lipitor) 10 Mg Tab 10 MG PO DAILY, TAB Cholecalciferol (Vitamin D3) 2,000 Unit Cap 2000 INTER.UNIT PO DAILY, CAP Epinephrine (Epipen) 0.3 Mg/0.3 Ml Inj 0.3 MG IM UD PRN for Allergic Reaction, INJ Metoprolol Succinate (Toprol Xl) 25 Mg Tabcr 25 MG PO BID, TAB Paroxetine Hcl (Paxil) 10 Mg Tab 10 MG PO DAILY, TAB Venlafaxine Hcl (Effexor) 75 Mg Tab 75 MG PO DAILY, TAB Discontinued Medications: Doxycycline Hyclate (Vibramycin) 100 Mg Cap 100 MG PO BID for 10 Days, #20 CAP Metronidazole (Flagyl) 500 Mg Tab 500 MG PO TID for Pain for 10 Days, #30 TAB For Initial Treatment Discharge Exam The patient was seen and examined this morning. Pt reports doing well today. Patient has better mobility in her left wrist with flexion and extension, abduction and abduction. She reports that the redness has almost completely resolved and that her pain is better. Patient is agreeable to taking Tylenol at home for pain. Patient has Augmentin left over from previous prescription which will last for at least 7 more days. Discussion was held regarding getting 2 doses of Zyvox from our pharmacy here as, due to the holiday pharmacies are closed. She is willing to pickup the remainder of the 6 days tomorrow. Patient denies any fevers chills or sweats, and has no other acute complaints. ROS: Constitutional: No fever, sweats or chills Eyes: No diplopia, no worsening or blurred vision ENT: normal hearing, no trouble swallowing Respiratory: No cough, sputum, dyspnea at rest or on exertion Cardiovascular: No chest pain, tightness or palpitations Abdomen: No pain, nausea, vomiting, diarrhea or constipation Musculoskeletal: No joint pain, calf pain, swelling Neurologic: No weakness, numbness/tingling, or balance problems Psychiatric: No anxiety or depression Skin: No rash or itch PE: General: awake, alert, no apparent distress, obese Head: Normocephalic, atraumatic ENT: PERRL, EOMI, MMM Chest: Clear to auscultation, on room air, no adventitious breath sounds Cardiac: Regular rate and rhythm, no murmur, no JVD, normal peripheral pulses, good capillary refill Abdominal: NABS x 4 quadrants, soft, nontender to palpation, no rebound, guarding or tenderness Extremities: (L hand without erythema, swelling improved, mild + point tenderness over extensor surfaces within the marked border. Improved ROM with wrist flexion and extension, + pain with wrist adduction, no pain with abduction. 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 She was playing with her cat 4 days ago. The cat got excited and bit her in her hand. Cat is normal does not have any symptoms suspicious behavior for rabies. Also the cat is Up-to-date with her vaccines and does go outside in the residential neighborhood, does not interact with any wild animals. She cleaned the wound with soap and water . She was giving Augmentin but the wound and the cellulitis gets worse. She was giving ceftriaxone 1 g at the office of her Medicare physician. She also presented to the ED and received Unasyn and was discharged on doxycycline and Flagyl. Her hand continued to get worse when she presented to the ED for further evaluation. If erythema is expanding. She describes the pain being 8-10 / 10 Physical Exam Vital Signs Date Time Temp Pulse Resp B/P (MAP) Pulse Ox O2 Delivery O2 Flow Rate FiO2 07/11/17 10:14 36.8 86 20 160/93 94 Room Air General Appearance: WD/WN, no apparent distress Head: normocephalic, atraumatic Eyes: normal inspection, EOMI ENT: normal ENT inspection, hearing grossly normal Neck: supple Respiratory/Chest: chest non-tender, lungs clear, normal breath sounds, no respiratory distress, no accessory muscle use Cardiovascular: regular rate, rhythm, no edema, no gallop, no JVD, no murmur, normal peripheral pulses Abdomen/GI: normal bowel sounds, non tender, soft, no organomegaly, no pulsatile mass Back: normal inspection, no CVA tenderness Extremities/Musculoskelatal: normal inspection, + pertinent finding (left hand tenderness/swelling/erythema, capillary filling is normal, normal pulsation) Neurologic/Psych: 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 Patient failed outpatient Augmentin/doxycycline/Flagyl. Left hand cat bite cellulitis / healthcare associated material exposure - CT wrist obtained and negative for necrotizing fascitis, only showing edema consistent with cellulitis - Orthopedics on board -completed 2 days of IV antibiotics with Unasyn and vancomycin while admitted- transition to Augmentin and Zyvox since failed outpatient augmentin/doxy - patient was given 2 doses of Zyvox due to the holiday scheduled to start tonight, and has prescription of Augmentin left over which will last for at least 7 more days. Patient should complete Zyvox and Augmentin therapy 7 more days to complete a 10 day course. - No leukocytosis, afebrile Hypertension HLD Continue home medications including metoprolol 25 mg BID and atorvastatin 10 mg daily Depression - Continue paxil 10 mg and effexor 75 mg daily Mild obesity - Diet and exercise encouraged DVT prophylaxis - heparin, ambulatory Disposition: From home, lives alone, discharged to home today CODE STATUS: FULL CODE Total Time Spent: Greater than 30 minutes This includes examination of the patient, discharge planning, medication reconciliation, and communication with other providers. Discharge Instructions Please refer to the electronic Patient Visit Report (Discharge Instructions) for additional information. Follow-Up Follow up with your Primary Care Provider within 1-2 weeks. Additional Copies To Nba Mcgee M.D. Reviewed: Pt Seen/Exam by Me History Pt feels her hand continues to improve. Not much redness left and ongoing improvement in flexion ability. Still not quite able to make a full fist, but getting closer. Tolerating PO without issue. Agree with HPI/ROS as noted by PAC General Appearance: WD/WN, no apparent distress Respiratory: normal breath sounds, no respiratory distress Cardiovascular: normal peripheral pulses, regular rate, rhythm Gastrointestinal: non tender, soft Extremities: non-tender, no pedal edema, swelling (ongoing improvement of R hand swelling), other (Improving flexion of digits, appears most restricted at proximal phalanges flexion but improving) Neurologic/Psychiatric: alert, normal mood/affect, oriented x 3 Skin Characteristics: normal color, warm/dry, other (scabbed areas are healing well, no further redness) Assessment/Plan Agree with plan as outlined above Admitted for management of cellulitis s/p cat bite, has failed multiple abx attempts with PCP and ED Blood cx neg on prelim Ortho saw on admission and does not feel there was need for OR CT neg for abscess d/c on Augmentin and zyvox given multiple failed abx and concern for possible MRSA exposure 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 Pt will finish AM abx dosing prior to d/c and is being given doses x2 due to pharmacy closed for holiday Pt advised to call if there is issue with filling zyvox rx tomorrow
[2017-07-13 11:10] VITALS: BP 171/75; PULSE 62; TEMP 36.7; O2SAT 94
[2017-07-14] MEDS ORDERED: VANCOMYCIN TROUGH SCH (07:30)
== END 2017-07-13 13:21 | disposition home or self-care (01) | DRG 603 ==
LOC: C.EDB 10:11 → C.MSN 11:33 → EDBEDREQSVC 11:46 → ENRESERV 11:52
PROVIDERS: ADMIT Internal Medicine; ATTEND Internal Medicine
DX: L03.114 Cellulitis of left upper limb (principal); S61.452D Open bite of left hand, subsequent encounter; I10 Essential (primary) hypertension; E78.5 Hyperlipidemia, unspecified; F32.9 Major depressive disorder, single episode, unspecified; E66.9 Obesity, unspecified; Z51.81 Encounter for therapeutic drug level monitoring; Z79.899 Other long term (current) drug therapy; Z68.34 Body mass index [BMI] 34.0-34.9, adult; Z87.891 Personal history of nicotine dependence; W55.01XD Bitten by cat, subsequent encounter

== ENCOUNTER 2020-01-09 16:14 | Inpatient (IN) ==
[2020-01-09] MEDS ORDERED: MAGNESIUM HYDROXIDE SUSP 30 ML UDC PO PRN (17:45)
[2020-01-09] MEDS ORDERED: MoRPHine SULFATE 2 MG/ML CARP IV PRN (17:45)
[2020-01-09] MEDS ORDERED: ASPIRIN 325 MG ECTAB PO STA (17:45)
[2020-01-09] MEDS ORDERED: HEPARIN SODIUM/DEXTROSE 25,000 UNITS/500 ML BAG IV SCH (17:45)
[2020-01-09] MEDS ORDERED: ONDANSETRON INJ 2 MG/ML 2 ML VIAL IV PRN (17:45)
[2020-01-09] MEDS ORDERED: ALUMINUM/MAGNESIUM SUSP 30 ML UDC PO PRN (17:45)
[2020-01-09] MEDS ORDERED: ACETAMINOPHEN 325 MG TAB PO PRN (17:45)
[2020-01-09] MEDS ORDERED: EPINEPHRINE ADULT AUTO-INJECT 0.3 MG SYR IM PRN (17:50)
[2020-01-09] MEDS ORDERED: NITROGLYCERIN 2% OINTMENT 30GM TUBE EXT ONE (18:00)
--- NOTE | 2020-01-09 18:00 | History & Physical Report ---
Date of Service January 09, 2020 Assessment & Plan (1) Unstable angina: Patient has had crescendoing chest pain episodes over the last 10 days. I reviewed her EKGs from the office. She had a normal EKG without any ischemic changes in 2019. EKG ~10 days ago showed T wave inversions in the anterior leads. Today she now has a LBBB and on echo her EF is 45% with wall motion abnormalities corresponding to the LAD distribution. She reports chest pain 07/29 starting this am. Plan - * aspirin 325mg x 1 now, followed by 81mg daily starting tomorrow * heparin drip - low-dose * continue beta royer * NPO after MN tonight for cath tomorrow * nitropaste 0.5" x 1 now for 07/29 pain * previously took 10mg of lipitor but she stopped taking it * LDL was 154 one week ago; especially if CAD is confirmed tomorrow will need high-intensity statin therapy once again * check hemoglobin a1c in AM - r/o DM - for risk factor modification * will ultimately need JASS or ARB if BP can tolerate (2) Ischemic cardiomyopathy: EF of 45% on echo today done at [facility] in [place]. Compensated on exam. Continue beta royer. Cath tomorrow to check coronaries and intervene if necessary. Will need JASS or ARB. (3) Chest pain: Concerning for ischemic chest pain. Increasing frequency of episodes is suggestive of unstable angina. Aspirin, nitrates, morphine prn. Serial troponins. Low-dose heparin infusion. Cardiology to see in am. (4) Hyperlipidemia: 01/02/20 lipid profile noted. See discussion above re: initiation of statin therapy again. (5) Depression: Continue effexor. (6) Hypertension: Continue beta royer. Adjust as needed. Likely to need JASS or ARB. (7) Obesity (BMI 30.0-34.9): BMI 34.8. If CAD is found would benefit from cardiac rehab. (8) DVT prophylaxis: heparin infusion NPO after MN IVF starting at 0400 with NS hydration Admission and Anticipated Discharge Date Admission Date: January 09, 2020 History of Present Illness Chief Complaint: chest pressure Primary Care Provider: Nba Verdin MD 64yo female with history of HTN and hyperlipidemia who presents with episodes of chest pressure beginning about 10 days ago. First episode was about 10 days ago while laying in bed. Lasted 30 minutes. Located over left chest. No associated dyspnea. About 1 day later she had a 2nd episode again lasting 30 minutes. Radiated to thoracic back region. The pain occurred at rest. No associated shortness of breath. Saw [facility] after her first episode of chest pressure and stress test was recommended. EKG during that visit showed anterior T wave inversions. She has had "numerous" episodes of chest pressure since that time. Pain is light in severity. Left breast. Still no shortness of breath. Her stress test was scheduled for last week but ultimately got postponed until today. Upon arrival today she had a new-onset LBBB and thus her stress test was canceled. She ultimately saw Dr Tan who performed echo. Echo showed a large wall motion abnormality of the LAD distribution. EF ~45%. Cardiac cath was recommended and arrangements were made for direct admission to [facility]. She states she woke up this morning with chest pressure over the left chest. It has been present all day. 07/29 in severity. No nausea, emesis, abdominal pain, shortness of breath, jaw pain, arm pain. No radiation today to the back. Allergies Allergy/AdvReac Type Severity Reaction Status Date / Time niacin Allergy Unknown "severe Verified 12/24/18 09:42 skin rash" Home Medications Home Medications Medication Instructions Recorded Confirmed Type atorvastatin 10 mg PO QAM 04/20/18 12/24/18 History cholecalciferol (vitamin D3) 1,000 unit PO QAM 04/20/18 12/24/18 History [Vitamin D3] epinephrine [EpiPen] 0.3 mg IM Q3H PRN 04/20/18 12/24/18 History metoprolol succinate 25 mg PO BID 04/20/18 12/24/18 History venlafaxine [Effexor XR] 75 mg PO QAM 04/20/18 12/24/18 History Past Med/Surg History Medical History (Updated 01/09/20 @ 19:22 by Jaime Martínez) Bilateral ankle pain Depression Hyperlipidemia Hypertension Surgical History History of appendectomy History of colonoscopy History of hysterectomy BSO History of tonsillectomy Family History (Updated 01/09/20 @ 18:05 by Jaime Martínez) Father , age 93 "old age" Heart block AV complete Mother Stroke Denies family history of Myocardial infarction Social History (Updated 01/09/20 @ 18:06 by Jaime Martínez) Preferred Language: Malawian Communication Ability: Effective Hospice Director Required: No Beliefs That Will Affect Care: None marital status: Current Living Situation: Alone current occupational status: retired Other Information That Helps Us Care for You: No 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[employer]; 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 Feels Safe at Home: Yes Safety Concerns: Feels Safe At This Time Smoking Status: Former smoker (AGES 20-30) Age Started Using Tobacco: 21 ; packs per day: 0.25 ; Do You Dip or Chew Tobacco: No ; Smoking End Date: 1989 ; Number of Years Since Quit: 30 ; Second Hand Exposure: No ; Tobacco Cessation Education Requested by Patient: No Hx Alcohol Use: Yes Alcohol type: hard liquor Alcohol type Comment: Avila once nightly Alcohol Intake Frequency: Daily Hx Substance Use: No Review of Systems Constitutional: no fever, no chills, no body aches, no anorexia and no weight loss Eyes: no worsening vision Ear, Nose, Mouth, Throat: no nasal congestion, no sore throat and no dysphagia no loss of taste or smell Respiratory: no cough and no wheezing Cardiovascular: + chest pain; no chest pain with activity, no radiating jaw, neck or arm pain, no orthopnea, no paroxysmal nocturnal dyspnea, no palpitations, no syncope and no edema Gastrointestinal: no abdominal pain, no nausea, no vomiting, no diarrhea/loose stools and no blood in stools Genitourinary: no dysuria Musculoskeletal: + joint pain (ankles) Integumentary: no rash Neurologic: no paresthesia Psychiatric: no depression and no anxiety Endocrine: no diabetes Hematologic / Lymphatic: no easy bleeding and no easy bruising Allergy / Immunological: no seasonal rhinorrhea Physical Exam Constitutional: well developed, well nourished and + obese; no acute distress and no altered mental status Eyes: + anicteric sclerae and PERRL ENMT: external ear and nose normal, oropharynx normal Neck: trachea midline, no thyromegaly Respiratory: normal respiratory effort, lungs clear to auscultation Cardiovascular: Rate/Rhythm: regular rate and regular rhythm Heart Sounds: normal S1 and normal S2; no murmur Vessels: posterior tibial pulses present and dorsalis pedis pulses present; no JVD Extremities: no edema Gastrointestinal (Abdomen): normal bowel sounds, soft, nontender, no hepatosplenomegaly Musculoskeletal: no cyanosis or clubbing, extremities motor strength 5/5 Skin: no rashes, warm and dry Neurologic: deep tendon reflexes 2+ bilaterally and moves all extremities Psychiatric: A+Ox3, euthymic affect Lymphatic: no cervical lymphadenopathy Results & Data Results & Data ([facility]) Laboratory Results Laboratory Results - last 24 hr 01/09/20 01/09/20 01/09/20 17:57 17:57 17:57 WBC 7.76 RBC 4.32 Hgb 14.0 Hct 42.5 MCV 98.4 MCH 32.4 MCHC 32.9 RDW Std Deviation 46.9 H RDW Coeff of Nila 13.0 Plt Count 248 MPV 10.1 Immature Gran % (Auto) 0.1 Neut % (Auto) 54.5 Lymph % (Auto) 33.4 [place] % (Auto) 9.9 Eos % (Auto) 1.7 Baso % (Auto) 0.4 Neut # (Auto) 4.23 Lymph # (Auto) 2.59 [place] # (Auto) 0.77 H Eos # (Auto) 0.13 Baso # (Auto) 0.03 Immature Gran # (Auto) 0.01 PT 10.3 INR 1.0 APTT 22.7 PTT Ratio 0.8 Sodium 136 Potassium 3.8 Chloride 105 Carbon Dioxide 26 Anion Gap 6.0 BUN 14 Creatinine 1.01 Est Cr Clr Drug Dosing 62.4 Est GFR ( Amer) 67.2 Est GFR (Non-Af Amer) 58.0 BUN/Creatinine Ratio 14.0 Glucose 93 Calcium 9.1 Magnesium 2.2 Total Bilirubin 0.3 AST 18 ALT 38 Alkaline Phosphatase 74 Troponin I < 0.015 Total Protein 7.5 Albumin 3.7 Globulin 3.8 Albumin/Globulin Ratio 1.0 Hepatitis C Ab Screen 01/09/20 17:57 WBC RBC Hgb Hct MCV MCH MCHC RDW Std Deviation RDW Coeff of Nila Plt Count MPV Immature Gran % (Auto) Neut % (Auto) Lymph % (Auto) [place] % (Auto) Eos % (Auto) Baso % (Auto) Neut # (Auto) Lymph # (Auto) [place] # (Auto) Eos # (Auto) Baso # (Auto) Immature Gran # (Auto) PT INR APTT PTT Ratio Sodium Potassium Chloride Carbon Dioxide Anion Gap BUN Creatinine Est Cr Clr Drug Dosing Est GFR ( Amer) Est GFR (Non-Af Amer) BUN/Creatinine Ratio Glucose Calcium Magnesium Total Bilirubin AST ALT Alkaline Phosphatase Troponin I Total Protein Albumin Globulin Albumin/Globulin Ratio Hepatitis C Ab Screen Pending Diagnostic Findings 1. cxr - pending 2. EKG from [facility] office - NSR, new LBBB 3. 01/02/2020 - lipid profile - total cholesterol 257; LDL 154; HDL 60; Tr iglycerides 217 4. echo 01/09/20 - read by Dr Todd Tan - EF 45%; mid-distal anterolateral wall hypokinesis; probable distal anterior wall hypokinesis; grade 1 diastolic dysfunction; no significant valvular disease Code Status & VTE Plan Code Status full VTE Prophylaxis Plan VTE Prophylaxis will be ordered: Yes PG Care Time/CCT Total # of Minutes Spent Total Time Spent with Patient: Total time spent is greater than 50% in coordination of care (as documented) at patient's floor/unit and/or counseling patient: Coding Level of Care Code 11029 Initial Inpt Care Lvl 2 Diagnoses Unstable angina I20.0 Ischemic cardiomyopathy I25.5 Chest pain R07.9 Chest pain type: unspecified Hyperlipidemia E78.2 Hyperlipidemia type: mixed hyperlipidemia Depression F32.9 Depression Type: unspecified Hypertension I10 Hypertension type: essential hypertension Obesity (BMI 30.0-34.9) E66.9 DVT prophylaxis Z29.9 (1) Chest pain Chest pain type: unspecified Qualified Code(s): R07.9 - Chest pain, unspecified (2) Hyperlipidemia Hyperlipidemia type: mixed hyperlipidemia Qualified Code(s): E78.2 - Mixed hyperlipidemia (3) Depression Depression Type: unspecified Qualified Code(s): F32.9 - Major depressive disorder, single episode, unspecified (4) Hypertension Hypertension type: essential hypertension Qualified Code(s): I10 - Essential (primary) hypertension
[2020-01-09 18:11] LABS: Basophils # (auto) 0.03 K/uL (0-0.2); Basophils % (auto) 0.4 %; Eosinophils # (auto) 0.13 K/uL (0-0.5); Eosinophils % (auto) 1.7 %; Hematocrit (blood only) 42.5 % (37-47); Immature Granulocytes # (auto) 0.01 K/uL (0.00-0.02); Immature Granulocytes % (auto) 0.1 %; Lymphocytes # (auto) 2.59 K/uL (1.2-3.4); Lymphocytes % (auto) 33.4 %; Mean Corpuscular Hemoglobin 32.4 pg (25-34); Mean Corpuscular Hgb Conc 32.9 g/dL (32-36); Mean Corpuscular Volume 98.4 fL (80-100); Mean Platelet Volume 10.1 fL (7.4-10.4); Monocytes # (auto) 0.77 K/uL (0.11-0.59); Monocytes % (auto) 9.9 %; Neutrophils # (auto) 4.23 K/uL (1.4-6.5); Neutrophils % (auto) 54.5 %; Platelet Count 248 K/uL (130-400); RDW Standard Deviation 46.9 fL (36.4-46.3); Red Blood Count 4.32 M/uL (4.2-5.4); White Blood Count 7.76 K/uL (4.8-10.8)
[2020-01-09 18:28] LABS: Alanine Aminotransferase 38 U/L (12-78); Albumin Level 3.7 gm/dl (3.4-5.0); Aspartate Aminotransferase 18 U/L (15-37); Blood Urea Nitrogen 14 mg/dl (7-18); Calcium 9.1 mg/dl (8.5-10.1); Carbon Dioxide 26 mmol/L (21-32); Chloride 105 mmol/L (98-107); Creatinine Clr Calc Pharmacy 62.4 ml/min; Est GFR (African American) 67.2; Glucose 93 mg/dl (70-99); Magnesium 2.2 mg/dl (1.8-2.4); Potassium 3.8 mmol/L (3.5-5.1); Sodium 136 mmol/L (136-145)
[2020-01-09 18:30] LABS: Partial Thromboplastin Ratio 0.8; Partial Thromboplastin Time 22.7 Seconds (21.0-31.0); Prothrombin Time 10.3 Seconds (9.0-12.0)
[2020-01-09] MEDS: VENLAFAXINE HCL XR 75 MG CAPXR PO SCH (18:31)
[2020-01-09 18:32] LABS: Alkaline Phosphatase 74 U/L (45-117); Bilirubin,Total 0.3 mg/dl (0.2-1); Globulin 3.8 gm/dl (2.5-4.0); Total Protein 7.5 gm/dl (6.4-8.2); Troponin I < 0.015 ng/ml (0-0.045)
[2020-01-09] MEDS ORDERED: HEPARIN 25000 UNIT/500 ML D5W IV ONE (18:35)
[2020-01-09] MEDS: Heparin IV Low Dose *NO* Bolus IV SCH ×2 (19:05→19:50)
[2020-01-09] MEDS: METOPROLOL SUCC 25MG EXT REL TAB PO SCH (21:09)
[2020-01-09] MEDS: NITROGLYCERIN SL 0.4 MG/TAB TAB SL PRN ×2 (22:19→22:27)
[2020-01-09] MEDS ORDERED: ONDANSETRON INJ 2 MG/ML 2 ML VIAL IV STA (23:12)
[2020-01-09] MEDS: FAMOTIDINE 20 MG in SYRINGE 3 ML IV SCH (23:48)
[2020-01-09] MEDS: NSS + 20MEQ KCL 20 MEQ/1,000 ML BAG IV SCH (23:49)
[2020-01-09] MEDS: NITROGLYCERIN 2% OINTMENT 30GM TUBE EXT SCH (23:49)
--- NOTE | 2020-01-10 01:20 | Communication Note ---
Date of Service: January 10, 2020 Notified about 10:30pm on 01/09/20 that Beulah was having 3/10 chest pain once more associated with nausea. She was given sublingual nitro x2 by nursing which slowly decreased the pain to noted 1/10 when she was evaluated at bedside. still nauseous with headache. Also received morphine 2mg x1. Stat EKG showed LBBB, stat trops were NEGATIVE. Nitropaste 1inch was ordered with q6h scheduled administration. Her NSS was switched to NSS+ 20mEq of potassium to optimize her K to 4.0 or greater. Magnesium already >2. IV Famotidine 20mg BID also ordered. Given 1 additional dose of IV zofran 4mg. Already received aspirin 325mg on admission, scheduled for AM 81mg. Currently on heparin drip. Had received metoprolol succinate 25mg earlier, and there was room with her blood pressure to give additional doses as needed. No additional doses were given. On recheck about 2 hours later, pt was resting comfortably in bed, sleeping. Decision was made to continue to monitor and await AM cath as previously scheduled. 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
[2020-01-10 01:38] LABS: Hematocrit (blood only) 38.6 % (37-47); Hemoglobin 12.8 g/dL (12.0-16.0); Mean Corpuscular Hemoglobin 32.3 pg (25-34); Mean Corpuscular Hgb Conc 33.2 g/dL (32-36); Mean Corpuscular Volume 97.5 fL (80-100); Mean Platelet Volume 9.9 fL (7.4-10.4); Platelet Count 217 K/uL (130-400); RDW Coefficient of Variation 13.1 % (11.5-14.5); RDW Standard Deviation 47.2 fL (36.4-46.3); Red Blood Count 3.96 M/uL (4.2-5.4); White Blood Count 7.68 K/uL (4.8-10.8)
[2020-01-10 01:58] LABS: Partial Thromboplastin Ratio 1.2; Partial Thromboplastin Time 32.6 Seconds (21.0-31.0)
[2020-01-10] MEDS ORDERED: HEPARIN IV BOLUS 4,500 UNITS in SYRINGE 0 ML IV STA (02:31)
[2020-01-10] MEDS ORDERED: SODIUM CHLORIDE 0.9% 1000ML 1,000 ML IV SCH ×2 (05:00→14:30)
[2020-01-10] MEDS: NITROGLYCERIN 2% OINTMENT 30GM TUBE EXT SCH ×2 (06:24→14:53)
[2020-01-10] MEDS: METOPROLOL SUCC 25MG EXT REL TAB PO SCH ×2 (08:21→20:10)
[2020-01-10] MEDS: ASPIRIN 81 MG ECTAB PO SCH (08:22)
[2020-01-10] MEDS: CHOLECALCIFEROL 1,000 UNITS 25 MCG TAB PO SCH (08:22)
[2020-01-10] MEDS: FAMOTIDINE 20 MG in SYRINGE 3 ML IV SCH (08:28)
[2020-01-10] MEDS: VENLAFAXINE HCL XR 75 MG CAPXR PO SCH (08:54)
[2020-01-10] MEDS ORDERED: VENLAFAXINE HCL XR 75 MG CAPXR PO SCH (09:00)
[2020-01-10] MEDS ORDERED: ATORVASTATIN 10 MG TAB PO SCH ×2 (09:00→12:00)
[2020-01-10 09:13] LABS: Estimated Average Glucose 131 mg/dl; Hemoglobin A1C 6.2 % (4.5-5.6)
--- NOTE | 2020-01-10 09:36 | XRay Report ---
XR chest 2V PA/lateral HISTORY: Atypical chest pain COMPARISON: Chest 09/06/2019. FINDINGS: The cardiac silhouette is borderline enlarged. No focal lung consolidations to suggest pneu monia. No evidence for pulmonary edema. Mild diffuse interstitial thickening which is likely chronic. This remains unchanged. No pleural effusions. No pneumothorax. IMPRESSION: Borderline cardiomegaly and mild chronic interstitial thickening. ACT 112: Negative or not required by law. Electronically signed by: Travis Mcguire M.D. 01/10/2020 9:34 AM
--- NOTE | 2020-01-10 10:09 | Cardiology Consultation ---
Date of Consultation January 10, 2020 Assessment & Plan (1) Unstable angina: Mrs. Bee is a 64-year-old female with a history of Hypertension, Dyslipidemia, Depression, and Obesity who was admitted to [facility] on 01/09/2020 with Unstable Angina which is manifesting with Intermittent Chest Pain/ Pressure x 10 to 11 days, New LBBB, and an Abnormal Echocardiogram showing mid to distal anterolateral wall hypokinesis, possible distal anterior wall hypokinesis, septal wall motion abnormality consistent with LBBB, and mildly reduced LV systolic function (LVEF 45%). Patient is currently chest pain free after having her topical nitrates increased. She is going to have a cardiac catheterization done this afternoon with Dr. Peña. Recommend the following: -- Continue Heparin drip. -- Increase Atorvastatin to 40 mg daily. -- Continue Aspirin 81 mg daily. -- Continue Toprol XL 25 mg b.i.d. -- Continue topical nitroglycerin. -- Report any recurrent symptoms immediately. -- Cardiac Catheterization/ Coronary Angiography +/- PCI later today. Present on Admission?: Yes (2) Ischemic cardiomyopathy: LVEF 45%. No symptoms suggestive of hypervolemia or heart failure. -- Continue beta royer. -- Cardiac catheterization. -- Initiate ACEI or ARB therapy. -- Monitor I&O's. -- Low sodium, heart healthy diet. (3) Chest pain: Currently asymptomatic: -- As outlined above. (4) Hypertension: BP is currently well controlled, but was elevated on admission. (5) Dyslipidemia: -- Increase Atorvastatin to 40 mg daily. -- Dietary changes. Supervising Physician Co-Signing Physician Notes Patient seen and examined. Agree with Mr. Villatoro's assessment and plan. Cardiac catheterization later today. History of Present Illness Reason for Consultation: -- Unstable Angina Pectoris. -- New LBBB. Requesting Physician: Jaime Martínez Attending Physician: Carlo Carreno MD History of Present Illness Mrs. Bee is a 64-year-old female with a history of Hypertension, Dyslipidemia, Depression, and Obesity who was admitted to [facility] on 01/09/2020 with Intermittent Chest Pain x 10 to 11 days, New LBBB, and an Abnormal Echocardiogram showing mid to distal anterolateral wall hypokinesis, possible distal anterior wall hypokinesis, septal wall motion abnormality consistent with LBBB, and mildly reduced LV systolic function (LVEF 45%). Patient states that approximately 10-11 days ago she began to notice a central to left-sided chest pain that had its onset while patient was lying in bed, and on occasion it radiates to her left neck or to her upper back with 1 episode of associated nausea last evening. Patient denies any associated vomiting, diaphoresis, or dyspnea. These symptoms have been lasting from 5 minutes up to 30 minutes and then they resolve spontaneously. She is had somewhere between 10 and 20 episodes of this chest pain. Patient has not noticed any decrease in her exertional tolerance -- but she has not been exercising routinely. [place] due to the coronavirus pandemic -- but up until early September she was doing water aerobics there without symptoms or difficulty. Patient was still experiencing this chest pain off and on last evening, but her topical nitrates were increased and she has been asymptomatic so far today. Patient was initially scheduled for a stress test last week, but when she showed up her EKG showed a new left bundle branch block. Her stress test was canceled. ECHOCARDIOGRAM 01/09/2020: -- Normal LV size with mildly reduced LV systolic function. -- LVEF 45%. -- Abnormal septal in anterior septal wall motion consistent with bundle branch block. -- Mid to distal anterolateral wall hypokinesis. -- Possible distal anterior wall hypokinesis. -- No LVH. -- Probably type I LV diastolic dysfunction. -- Normal RV size and systolic function. -- No valvular abnormalities. Cardiac Catheterization / Coronary Angiography -- pending. Allergies Allergy/AdvReac Type Severity Reaction Status Date / Time niacin Allergy Unknown "severe Verified 12/24/18 09:42 skin rash" Home Medications Home Medications Medication Instructions Recorded Confirmed Type atorvastatin 10 mg PO QAM 04/20/18 12/24/18 History cholecalciferol (vitamin D3) 1,000 unit PO QAM 04/20/18 12/24/18 History [Vitamin D3] epinephrine [EpiPen] 0.3 mg IM Q3H PRN 04/20/18 12/24/18 History metoprolol succinate 25 mg PO BID 04/20/18 12/24/18 History venlafaxine [Effexor XR] 75 mg PO QAM 04/20/18 12/24/18 History Patient History Medical History (Updated 01/10/20 @ 10:16 by Bryon Villatoro PA-C) Bilateral ankle pain Depression Hyperlipidemia Hypertension Surgical History History of appendectomy History of colonoscopy History of hysterectomy BSO History of tonsillectomy Family History (Updated 01/09/20 @ 18:05 by Jaime Martínez) Father , age 93 "old age" Heart block AV complete Mother Stroke Denies family history of Myocardial infarction Social History (Updated 01/09/20 @ 18:06 by Jaime Martínez) Preferred Language: [place] Communication Ability: Effective 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 Beliefs That Will Affect Care: None marital status: Current Living Situation: Alone current occupational status: retired Other Information That Helps Us Care for You: No 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[employer]; no children Feels Safe at Home: Yes Safety Concerns: Feels Safe At This Time Smoking Status: Former smoker (AGES 20-30) Age Started Using Tobacco: 21 ; packs per day: 0.25 ; Do You Dip or Chew Tobacco: No ; Smoking End Date: 1989 ; Number of Years Since Quit: 30 ; Second Hand Exposure: No ; Tobacco Cessation Education Requested by Patient: No Hx Alcohol Use: Yes Alcohol type: hard liquor Alcohol type Comment: [place] once nightly Alcohol Intake Frequency: Daily Hx Substance Use: No Physical Exam Physical Exam: GENERAL: Patient in no acute distress, sitting upright in a bedside chair. HEENT: Head is atraumatic, normocephalic. EOM's intact. Facies symmetric. No perioral cyanosis. NECK: No JVD. JVP is at the level of the clavicle sitting upright. Carotid upstrokes are + 2 bilaterally. No bruits are noted. CHEST/LUNGS: Clear to auscultation throughout all lung manning. No obvious wheezes, rales, or crackles. CVS: S1 and S2 are regular with a split S2. No obvious murmurs. No gallops or rubs. PMI is nonpalpable. No lifts, heaves, or thrills. No abdominal aortic or renal bruits. ABDOMINAL EXAM: Bowel sounds are present. No masses, organomegaly, or tenderness. EXTREMITIES: No clubbing or cyanosis. No edema. Intact posterior tibial and radial pulses bilaterally. Nahun's test positive for both radial and ulnar reflow involving the right wrist and hand. NEUROLOGIC EXAM: Patient is awake, alert, and oriented. Pleasant and cooperative. Answers questions appropriately. Speech is clear. Normal movement in all 4 extremities. TELEMETRY: -- NSR with an intermittent IVCD. EKG 01/10/2020: -- Junctional rhythm with T wave inversions in V1 through V3. -- Possible anterior ischemia. -- Compared to 01/09/2020 junctional rhythm has replaced sinus rhythm, and left bundle branch block is no longer present. Results & Data ([facility]) Vital Signs (Past 12 Hours) Vital Signs Temp Pulse Pulse Resp BP Pulse Ox 01/10/20 07:52 36.5 C 68 19 127/85 96 01/10/20 07:21 71 01/10/20 03:51 36.8 C 74 17 120/81 95 01/09/20 22:27 84 130/86 01/09/20 22:20 83 01/09/20 22:00 82 163/104 H Laboratory Results Laboratory Results - last 24 hr 01/09/20 01/09/20 01/09/20 17:57 17:57 17:57 WBC 7.76 RBC 4.32 Hgb 14.0 Hct 42.5 MCV 98.4 MCH 32.4 MCHC 32.9 RDW Std Deviation 46.9 H RDW Coeff of Nila 13.0 Plt Count 248 MPV 10.1 Immature Gran % (Auto) 0.1 Neut % (Auto) 54.5 Lymph % (Auto) 33.4 [place] % (Auto) 9.9 Eos % (Auto) 1.7 Baso % (Auto) 0.4 Neut # (Auto) 4.23 Lymph # (Auto) 2.59 [place] # (Auto) 0.77 H Eos # (Auto) 0.13 Baso # (Auto) 0.03 Immature Gran # (Auto) 0.01 PT 10.3 INR 1.0 APTT 22.7 PTT Ratio 0.8 Sodium 136 Potassium 3.8 Chloride 105 Carbon Dioxide 26 Anion Gap 6.0 BUN 14 Creatinine 1.01 Est Cr Clr Drug Dosing 62.4 Est GFR ( Amer) 67.2 Est GFR (Non-Af Amer) 58.0 BUN/Creatinine Ratio 14.0 Glucose 93 Estimat Average Glucose Hemoglobin A1c Calcium 9.1 Magnesium 2.2 Total Bilirubin 0.3 AST 18 ALT 38 Alkaline Phosphatase 74 Troponin I < 0.015 Total Protein 7.5 Albumin 3.7 Globulin 3.8 Albumin/Globulin Ratio 1.0 Hepatitis C Ab Screen 01/09/20 01/09/20 01/10/20 17:57 22:46 01:22 WBC RBC Hgb Hct MCV MCH MCHC RDW Std Deviation RDW Coeff of Nila Plt Count MPV Immature Gran % (Auto) Neut % (Auto) Lymph % (Auto) [place] % (Auto) Eos % (Auto) Baso % (Auto) Neut # (Auto) Lymph # (Auto) [place] # (Auto) Eos # (Auto) Baso # (Auto) Immature Gran # (Auto) PT INR APTT PTT Ratio Sodium Potassium Chloride Carbon Dioxide Anion Gap BUN Creatinine Est Cr Clr Drug Dosing Est GFR ( Amer) Est GFR (Non-Af Amer) BUN/Creatinine Ratio Glucose Estimat Average Glucose Hemoglobin A1c Calcium Magnesium Total Bilirubin AST ALT Alkaline Phosphatase Troponin I < 0.015 < 0.015 Total Protein Albumin Globulin Albumin/Globulin Ratio Hepatitis C Ab Screen Neg 01/10/20 01/10/20 01/10/20 01:22 01:22 06:09 WBC 7.68 RBC 3.96 L Hgb 12.8 Hct 38.6 MCV 97.5 MCH 32.3 MCHC 33.2 RDW Std Deviation 47.2 H RDW Coeff of Nila 13.1 Plt Count 217 MPV 9.9 Immature Gran % (Auto) Neut % (Auto) Lymph % (Auto) [place] % (Auto) Eos % (Auto) Baso % (Auto) Neut # (Auto) Lymph # (Auto) [place] # (Auto) Eos # (Auto) Baso # (Auto) Immature Gran # (Auto) PT INR APTT 32.6 H PTT Ratio 1.2 Sodium Potassium Chloride Carbon Dioxide Anion Gap BUN Creatinine Est Cr Clr Drug Dosing Est GFR ( Amer) Est GFR (Non-Af Amer) BUN/Creatinine Ratio Glucose Estimat Average Glucose 131 Hemoglobin A1c 6.2 H Calcium Magnesium Total Bilirubin AST ALT Alkaline Phosphatase Troponin I Total Protein Albumin Globulin Albumin/Globulin Ratio Hepatitis C Ab Screen 01/10/20 06:09 WBC RBC Hgb Hct MCV MCH MCHC RDW Std Deviation RDW Coeff of Nila Plt Count MPV Immature Gran % (Auto) Neut % (Auto) Lymph % (Auto) [place] % (Auto) Eos % (Auto) Baso % (Auto) Neut # (Auto) Lymph # (Auto) [place] # (Auto) Eos # (Auto) Baso # (Auto) Immature Gran # (Auto) PT INR APTT PTT Ratio Sodium Potassium Chloride Carbon Dioxide Anion Gap BUN Creatinine Est Cr Clr Drug Dosing Est GFR ( Amer) Est GFR (Non-Af Amer) BUN/Creatinine Ratio Glucose Estimat Average Glucose Hemoglobin A1c Calcium Magnesium Total Bilirubin AST ALT Alkaline Phosphatase Troponin I < 0.015 Total Protein Albumin Globulin Albumin/Globulin Ratio Hepatitis C Ab Screen Medications Administered Active Medications Generic Name Dose Route Start Last Admin Trade Name Freq PRN Reason Stop Dose Admin Acetaminophen 650 mg 01/09/20 17:45 Tylenol PO 02/08/20 17:44 Q4H PRN Pain or Fever Al Hydrox/Mg Hydrox/Simethicone 15 ml 01/09/20 17:45 Maalox PO 02/08/20 17:44 Q4H PRN Dyspepsia Aspirin 81 mg 01/10/20 09:00 01/10/20 08:22 Ecotrin Ectab PO 02/09/20 08:59 81 mg QAM CHERYL Administration Atorvastatin Calcium 10 mg 01/10/20 09:00 01/10/20 08:22 Lipitor PO 02/09/20 08:59 10 mg QAM CHERYL Administration Heparin Sodium/Dextrose 25,000 units in 500 mls @ 20 mls/hr 01/09/20 17:45 01/10/20 07:17 Heparin Sodium/Dextrose IV 02/08/20 17:44 1,000 units/hr .Q24H CHERYL 20 mls/hr Titration Protocol 1,000 UNITS/HR Potassium Chloride/Sodium Chloride 20 meq in 1,000 mls @ 80 mls/hr 01/09/20 23:30 01/09/20 23:49 Normal Saline W/20 Meq Kcl IV 02/08/20 23:29 80 mls/hr .[id number] CHERYL Administration Famotidine 20 mg/ Syringe 5 mls @ 2.5 mls/min 01/09/20 23:30 01/10/20 08:28 IV 02/08/20 23:29 2.5 mls/min BID CHERYL Administration Magnesium Hydroxide 30 ml 01/09/20 17:45 Milk Of Magnesia PO 02/08/20 17:44 Q12H PRN Constipation Metoprolol Succinate 25 mg 01/09/20 21:00 01/10/20 08:21 Toprol Xl PO 02/08/20 20:59 25 mg BID CHERYL Administration Morphine Sulfate 2 mg 01/09/20 17:45 01/09/20 22:32 Morphine Sulfate IV 01/23/20 17:44 2 mg Q30M PRN Administration Chest Pain Nitroglycerin 0.4 mg 01/09/20 17:45 01/09/20 22:27 Nitrostat SL 02/08/20 17:44 0.4 mg UD PRN Administration Chest Pain Nitroglycerin 1 inch 01/10/20 00:00 01/10/20 06:24 Nitro-Bid 2% EXT 02/09/20 00:00 1 inch Q6H CHERYL Administration Ondansetron HCl 4 mg 01/09/20 17:45 01/09/20 22:30 Zofran IV 02/08/20 17:44 4 mg Q6H PRN Administration Nausea Venlafaxine HCl 75 mg 01/10/20 09:00 01/10/20 08:54 Effexor Extended Release PO 02/09/20 08:59 75 mg QAM CHERYL Administration Vitamin D 1,000 units 01/10/20 09:00 01/10/20 08:22 Vitamin D3 PO 02/09/20 08:59 1,000 units QAM CHERYL Administration PG Care Time/CCT Total # of Minutes Spent Total Time Spent with Patient: Total time spent is greater than 50% in coordination of care (as documented) at patient's floor/unit and/or counseling patient: 45 minutes Coding Level of Care Code 71791 Initial Inpt Care Lvl 3 Diagnoses Unstable angina I20.0 Ischemic cardiomyopathy I25.5 Chest pain R07.9 Chest pain type: unspecified Hypertension I10 Hypertension type: essential hypertension Dyslipidemia E78.5 (1) Chest pain Chest pain type: unspecified Qualified Code(s): R07.9 - Chest pain, unspecified (2) Hypertension Hypertension type: essential hypertension Qualified Code(s): I10 - Essential (primary) hypertension
[2020-01-10 11:04] LABS: Partial Thromboplastin Time 55.2 Seconds (21.0-31.0)
[2020-01-10] MEDS ORDERED: fentaNYL citrate 100 MCG/2 ML VIAL ONE (13:01)
[2020-01-10] MEDS ORDERED: MIDAZOLAM HCL 1 MG/ML 2ML VIAL ONE (13:01)
[2020-01-10] MEDS ORDERED: NITROGLYCERIN/D5W 100MCG/ML 20ML SYR ONE (13:01)
[2020-01-10] MEDS ORDERED: NiCARDipine HCL INJ 2.5 MG/ML 10 ML AMP ONE (13:01)
--- NOTE | 2020-01-10 13:01 | Pre Anesthesia Assessment ---
Date of Service January 10, 2020 Pre Sedation Assessment Vital Signs Temp Pulse Pulse Resp BP Pulse Ox 01/10/20 12:35 68 18 138/93 96 01/10/20 12:33 97.9 F 68 18 151/88 H 98 01/10/20 07:52 97.7 F 68 19 127/85 96 01/10/20 07:21 71 01/10/20 03:51 98.2 F 74 17 120/81 95 01/09/20 22:27 84 130/86 01/09/20 22:20 83 01/09/20 22:00 82 163/104 H 01/09/20 20:39 98.2 F 87 18 151/86 H 93 Cardiovascular RRR, no murmur, no edema Respiratory normal respiratory effort, lungs clear to auscultation Pre-Sedation Airway Assessment Smoking Status: Former smoker (AGES 20-30) Hx Sleep Apnea: No Hx Difficult Intubation: No Short, Thick Neck: No Thyromental Distance: > or= 3.5 Finger Breadths Oral Cavity: + WNL Mallampati Class: II ASA: ASA2 NPO Status Date of Last Intake of Fluids: 01/10/20 Time of Last Intake of Fluids: 07:00 Date of Last Intake of Solid Food: 01/09/20 Time of Last Intake of Solid Foods: 20:00 Procedure Planning Contraindications for Sedation: none Current Medications Reviewed: Yes Notes The planned sedation has been discussed with the patient. Informed Consent was obtained. I have identified the patient, determined the appropriateness of sedation and have assessed the patient immediately prior to the procedure. All medicine(s) and interventions are by my order.
[2020-01-10] MEDS: HEPARIN (PORCINE) 1000 UNIT/ML 10 ML (CATH LAB USE ONLY) ONE ×2 (13:24→13:54)
--- NOTE | 2020-01-10 14:02 | Post Anesthesia Assessment ---
Date of Service January 10, 2020 Post Sedation Assessment Vital Signs Temp Pulse Pulse Resp BP Pulse Ox 01/10/20 12:35 68 18 138/93 96 01/10/20 12:33 97.9 F 68 18 151/88 H 98 01/10/20 07:52 97.7 F 68 19 127/85 96 01/10/20 07:21 71 01/10/20 03:51 98.2 F 74 17 120/81 95 01/09/20 22:27 84 130/86 01/09/20 22:20 83 01/09/20 22:00 82 163/104 H 01/09/20 20:39 98.2 F 87 18 151/86 H 93 Recovery Score Activity: Moves 4 extremities Respiration: Deep Breath/Cough Circulation: +/-20% PreAnes Value Consciousness: Fully Awake Oxygen Saturation: O2 needed for >90% Discharge Sedation Level of Care: Fast Track Phase II Post Sedation Plan On clinical assessment, the patient appears to have tolerated the sedation without complications. Patient is recovering as anticipated. Patient will continue to be monitored by nursing and may be discharged when sedation discharge criteria are met per below protocol. Upon Completions of procedure up to 15 minutes continue every 5 minute vital signs and the P.A.R. score; then discharge to a Phase I or Fast Track to Phase II per the following guidelines: * Discharge Patient to appropriate Phase II area if PAR is 8 or greater or return to pre- procedure baseline. The post - procedure orders will be as directed. * If PAR score is less than 8 or not return to pre-procedure baseline then patient will follow Phase I monitoring till PAR is reached for Phase II. The Phase I may be done in procedure room or may call to secure a Phase I area. * If naloxone or flumazenil are used for reversal, hold in Phase I for continued monitoring from when last reversal dose was given for a minimum of 60 minutes or longer pending the nurse and/or physician discretion of patient condition before discharge to Phase II. Please call the Sedation Physician to re-evaluate and complete post-note for discharge to Phase II area. Do NOT discharge from procedure sedation or Phase 1 until post- sedation evaluation note is complete by procedure /sedation MD Sedation Discharge Instructions to be given to the patient at discharge to home.
--- NOTE | 2020-01-10 14:16 | Cardiac Catheterization ---
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 Cardiac Status Clinical evaluation leading to the procedure CAD Presenation: Unstable angina Anginal Classification: CCS IV Heart Failure: No Cardiogenic Shock within 24 Hours: No Cardiac Arrest within 24 Hours: No Imaging Studies Past 6 Months: Yes Stress Studies Past 6 Months: No Diagnostic Physicians Name: Feliciano Peña MD Status: Elective Closure Device Percutaneous Entry Location: Radial Recommendations: Medical Therapy and/or Counseling Intraprocedure Events Significant Disection: No Perforation: No Cardiac Cath Procedure Full Procedure Date January 10, 2020 Pre-Procedure Diagnosis Pre-Procedure Diagnosis: Acute Coronary Syndrome AUC Score AUC Score: 7 Post-Procedure Diagnosis Post-Procedure Diagnosis: Severe CAD and Normal Intracardiac Pressures Procedure(s) Performed Procedure(s) Performed: Coronary Angiography and Left Heart Cath Manager Mall Feliciano Peña MD Accounts Receivable Processor(s) Estephanie Estimated Blood Loss Estimated Blood Loss: 10 Medication(s) Medication(s): Fentanyl, Heparin, Lidocaine 1%, Nicardipine, Nitroglycerin and Versed Summary of Findings Indication: Suspected acute coronary syndrome, new left bundle branch block, new regional wall motion abnormalities on echocardiogram Access: 6 Fr slender right radial artery Catheters: [place], EBU 3.5 guide Findings: LM -medium caliber, short, angiographically normal LAD -medium caliber, 40% mid segment disease, distal vessel without significant disease and wraps around apex. High first diagonal with hazy appearing 80% ostial stenosis (diagonal diameter <2 mm). Circumflex - Large caliber vessel without significant disease, large left PLB without disease RCA -dominant, medium caliber, tortuous proximally, luminal irregularities LVEDP -10 Small first diagonal difficult to lie out angiographically. In some views it appeared as if there was a possible branch occluded at takeoff of diagonal and leading to lateral wall. Unable to pass a corporation pilot 50 or whisper wire into area where possible branch noted. In the end small first diagonal thought to be likely culprit. Arterial Closure: TR band Summary: 1. Mild major epicardial coronary artery disease -30 to 40% mid LAD 2. Severe branch vessel disease 80% ostial small first diagonal 3. Normal intracardiac filling pressure Recommendations: Diagonal vessel thought to be acute culprit. Vessel too small for stenting. Recommend medical management per Dr. Tan. Will discontinue heparin and start clopidogrel. Hemodynamics Rest Ao:: 124/75/98 Final Ao: 108/91/123 LV: 127/10 Recommendations Recommendations: Medical Therapy and/or Counseling Specimens Specimens: None Radiation Exposure (mGy) 2044 Contrast (mls) 120 Fluids (cc crystalloids) Fluids (cc crystalloids): 92 Drains Drains: none Anesthesia moderate Procedural Complication(s) None Disposition PCU I attest to the content of the Intraoperative Record and any orders documented therein. Any exceptions are noted below. [facility] Card Cath Procedure Codes Cardiac Catheterization Procedure 1: Cardiovascular Cath Procedures: 34607 Coronaries and LHC (+/-LV) Moderate Sedation Procedure 1: Sedation/Anesthesia: 64160 Mod Sedation by the same physician;Init15 Min Child Age 5 & Up Procedure 2: Sedation/Anesthesia: 70812 Mod Sedation by the same physician; Ea [id number] Minutes PG Care Time/CCT Total # of Minutes Spent Total Time Spent with Patient: Total time spent is greater than 50% in coordination of care (as documented) at patient's floor/unit and/or counseling patient:
[2020-01-10] MEDS ORDERED: CLOPIDOGREL BISULFATE 300 MG TAB PO STA (14:23)
[2020-01-10] MEDS: NSS + 20MEQ KCL 20 MEQ/1,000 ML BAG IV SCH (14:53)
--- NOTE | 2020-01-10 14:58 | Hospitalist Progress Note ---
Date of Service January 10, 2020 Assessment & Plan (1) Unstable angina: concern for such with increasing number of episodes of chest pain over the last 7-10 days, then continuous low-grade pain most of the day on 01/08. pain relieved with nitro. pain-free this am. despite her pain all 4 troponins were negative since yesterday. [id number] her symptoms, EKG and echo findings are all concerning for CAD and ischemia. Dr Peña to perform heart cath today. cont heparin drip. cont BB. resume a statin. cont asa. (2) Ischemic cardiomyopathy: EF of 45% on echo done at [facility] in [place] on 01/09/20. Remains compensated on exam. Continue beta royer. Cath today. Will ultimately need JASS or ARB. (3) Chest pain: Concerning for ischemic chest pain. See above. Cont aspirin, nitrates, morphine prn. Serial troponins were negative. Continue low-dose heparin infusion. (4) Hyperlipidemia: 01/02/20 lipid profile noted with LDL > 150 and trigs > 200. Needs statin. (5) Depression: Continue effexor. (6) Hypertension: Continue beta royer. Likely needs JASS or ARB. (7) Obesity (BMI 30.0-34.9): BMI 34.8. If CAD is found on cath today would benefit from cardiac rehab. (8) Prediabetes: a1c 6.2% will inform patient of such weight loss to be recommended; good candidate for cardiac rehab (9) DVT prophylaxis: heparin infusion for now Admission and Anticipated Discharge Date Admission Date: January 09, 2020 Subjective had left-sided chest pain in middle of night that went from 1/10 on pain scale to 3/10 night resident was called given additional nitro SL - pain resolved with 2 nitros pepcid IV started IV fluids started this am during rounds she denied any pain, dyspnea, orthopnea tele normal overnight Review of Systems Constitutional: no fever Respiratory: no cough Cardiovascular: as per Subjective / HPI; no orthopnea, no paroxysmal nocturnal dyspnea and no edema Gastrointestinal: no abdominal pain Physical Exam Constitutional: well developed and well nourished; no acute distress and no altered mental status ENMT: external ear and nose normal, oropharynx normal Respiratory: normal respiratory effort, lungs clear to auscultation Cardiovascular: Rate/Rhythm: regular rate and regular rhythm Heart Sounds: normal S1 and normal S2; no murmur Vessels: posterior tibial pulses present and dorsalis pedis pulses present; no JVD Extremities: no edema Gastrointestinal (Abdomen): normal bowel sounds, soft, nontender, no hepatosplenomegaly Psychiatric: A+Ox3, euthymic affect Results & Data Results & Data ([facility]) Vital Signs (Past 12 Hours) Vital Signs Temp Pulse Pulse Resp BP BP Pulse Ox 01/10/20 14:34 36.7 C 68 18 135/87 93 01/10/20 14:20 74 18 152/112 H 92 01/10/20 14:05 73 18 172/104 H 93 01/10/20 12:35 68 18 138/93 96 01/10/20 12:33 36.6 C 68 18 151/88 H 98 01/10/20 07:52 36.5 C 68 19 127/85 96 01/10/20 07:21 71 01/10/20 03:51 36.8 C 74 17 120/81 95 Laboratory Results Laboratory Results - last 24 hr 01/09/20 01/09/20 01/09/20 17:57 17:57 17:57 WBC 7.76 RBC 4.32 Hgb 14.0 Hct 42.5 MCV 98.4 MCH 32.4 MCHC 32.9 RDW Std Deviation 46.9 H RDW Coeff of Nila 13.0 Plt Count 248 MPV 10.1 Immature Gran % (Auto) 0.1 Neut % (Auto) 54.5 Lymph % (Auto) 33.4 Cloud % (Auto) 9.9 Eos % (Auto) 1.7 Baso % (Auto) 0.4 Neut # (Auto) 4.23 Lymph # (Auto) 2.59 Cloud # (Auto) 0.77 H Eos # (Auto) 0.13 Baso # (Auto) 0.03 Immature Gran # (Auto) 0.01 PT 10.3 INR 1.0 APTT 22.7 PTT Ratio 0.8 Sodium 136 Potassium 3.8 Chloride 105 Carbon Dioxide 26 Anion Gap 6.0 BUN 14 Creatinine 1.01 Est Cr Clr Drug Dosing 62.4 Est GFR ( Amer) 67.2 Est GFR (Non-Af Amer) 58.0 BUN/Creatinine Ratio 14.0 Glucose 93 Estimat Average Glucose Hemoglobin A1c Calcium 9.1 Magnesium 2.2 Total Bilirubin 0.3 AST 18 ALT 38 Alkaline Phosphatase 74 Troponin I < 0.015 Total Protein 7.5 Albumin 3.7 Globulin 3.8 Albumin/Globulin Ratio 1.0 Hepatitis C Ab Screen 01/09/20 01/09/20 01/10/20 17:57 22:46 01:22 WBC RBC Hgb Hct MCV MCH MCHC RDW Std Deviation RDW Coeff of Nila Plt Count MPV Immature Gran % (Auto) Neut % (Auto) Lymph % (Auto) Cloud % (Auto) Eos % (Auto) Baso % (Auto) Neut # (Auto) Lymph # (Auto) Cloud # (Auto) Eos # (Auto) Baso # (Auto) Immature Gran # (Auto) PT INR APTT PTT Ratio Sodium Potassium Chloride Carbon Dioxide Anion Gap BUN Creatinine Est Cr Clr Drug Dosing Est GFR ( Amer) Est GFR (Non-Af Amer) BUN/Creatinine Ratio Glucose Estimat Average Glucose Hemoglobin A1c Calcium Magnesium Total Bilirubin AST ALT Alkaline Phosphatase Troponin I < 0.015 < 0.015 Total Protein Albumin Globulin Albumin/Globulin Ratio Hepatitis C Ab Screen Neg 01/10/20 01/10/20 01/10/20 01:22 01:22 06:09 WBC 7.68 RBC 3.96 L Hgb 12.8 Hct 38.6 MCV 97.5 MCH 32.3 MCHC 33.2 RDW Std Deviation 47.2 H RDW Coeff of Nila 13.1 Plt Count 217 MPV 9.9 Immature Gran % (Auto) Neut % (Auto) Lymph % (Auto) Cloud % (Auto) Eos % (Auto) Baso % (Auto) Neut # (Auto) Lymph # (Auto) Cloud # (Auto) Eos # (Auto) Baso # (Auto) Immature Gran # (Auto) PT INR APTT 32.6 H PTT Ratio 1.2 Sodium Potassium Chloride Carbon Dioxide Anion Gap BUN Creatinine Est Cr Clr Drug Dosing Est GFR ( Amer) Est GFR (Non-Af Amer) BUN/Creatinine Ratio Glucose Estimat Average Glucose 131 Hemoglobin A1c 6.2 H Calcium Magnesium Total Bilirubin AST ALT Alkaline Phosphatase Troponin I Total Protein Albumin Globulin Albumin/Globulin Ratio Hepatitis C Ab Screen 01/10/20 01/10/20 06:09 09:57 WBC RBC Hgb Hct MCV MCH MCHC RDW Std Deviation RDW Coeff of Nila Plt Count MPV Immature Gran % (Auto) Neut % (Auto) Lymph % (Auto) Cloud % (Auto) Eos % (Auto) Baso % (Auto) Neut # (Auto) Lymph # (Auto) Cloud # (Auto) Eos # (Auto) Baso # (Auto) Immature Gran # (Auto) PT INR APTT 55.2 H* PTT Ratio 2.0 Sodium Potassium Chloride Carbon Dioxide Anion Gap BUN Creatinine Est Cr Clr Drug Dosing Est GFR ( Amer) Est GFR (Non-Af Amer) BUN/Creatinine Ratio Glucose Estimat Average Glucose Hemoglobin A1c Calcium Magnesium Total Bilirubin AST ALT Alkaline Phosphatase Troponin I < 0.015 Total Protein Albumin Globulin Albumin/Globulin Ratio Hepatitis C Ab Screen Diagnostic Findings EKG this am - T wave inversions anterior leads PG Care Time/CCT Total # of Minutes Spent Total Time Spent with Patient: Total time spent is greater than 50% in coordination of care (as documented) at patient's floor/unit and/or counseling patient: Coding Level of Care Code 26209 Subseq Hosp Care Lvl 2 Diagnoses Unstable angina I20.0 Ischemic cardiomyopathy I25.5 Chest pain R07.9 Chest pain type: unspecified Hyperlipidemia E78.2 Hyperlipidemia type: mixed hyperlipidemia Depression F32.9 Depression Type: unspecified Hypertension I10 Hypertension type: essential hypertension Obesity (BMI 30.0-34.9) E66.9 Prediabetes R73.03 DVT prophylaxis Z29.9 (1) Chest pain Chest pain type: unspecified Qualified Code(s): R07.9 - Chest pain, unspecified (2) Hyperlipidemia Hyperlipidemia type: mixed hyperlipidemia Qualified Code(s): E78.2 - Mixed hyperlipidemia (3) Depression Depression Type: unspecified Qualified Code(s): F32.9 - Major depressive disorder, single episode, unspecified (4) Hypertension Hypertension type: essential hypertension Qualified Code(s): I10 - Essential (primary) hypertension
--- NOTE | 2020-01-10 15:52 | Electrocardiogram Report ---
Test Reason : Blood Pressure : / mmHG Vent. Rate : 068 BPM Atrial Rate : 000 BPM P-R Int : 000 ms QRS Dur : 084 ms QT Int : 436 ms P-R-T Axes : 000 -29 004 degrees QTc Int : 463 ms Normal sinus rhythm T wave abnormality, consider anterior ischemia Abnormal ECG When compared with ECG of 09-JAN-2020 22:16, (unconfirmed) Left bundle branch block is no longer Present Confirmed by Carlo Carreno ([id number]) on 01/10/2020 3:52:30 PM Referred By: Todd Tan Confirmed By:Carlo Carreno
[2020-01-10] MEDS: FAMOTIDINE 20 MG TAB PO SCH (20:10)
[2020-01-11 07:57] LABS: Hematocrit (blood only) 41.7 % (37-47); Hemoglobin 13.3 g/dL (12.0-16.0); Mean Corpuscular Hgb Conc 31.9 g/dL (32-36); Mean Corpuscular Volume 100.5 fL (80-100); Platelet Count 237 K/uL (130-400); RDW Coefficient of Variation 13.2 % (11.5-14.5); RDW Standard Deviation 48.3 fL (36.4-46.3); Red Blood Count 4.15 M/uL (4.2-5.4); White Blood Count 7.09 K/uL (4.8-10.8)
[2020-01-11 08:22] LABS: BUN Creatinine Ratio 9.9 (10-20); Calcium 9.1 mg/dl (8.5-10.1); Creatinine Clr Calc Pharmacy 57.2 ml/min; Est GFR (African American) 60.6; Est GFR (Non-African American) 52.3; Potassium 4.5 mmol/L (3.5-5.1)
[2020-01-11 08:37] LABS: Thyroid Stimulating Hormone 0.889 uIu/ml (0.300-4.500)
[2020-01-11] MEDS: METOPROLOL SUCC 25MG EXT REL TAB PO SCH (09:00)
[2020-01-11] MEDS: VENLAFAXINE HCL XR 75 MG CAPXR PO SCH (09:00)
[2020-01-11] MEDS: ASPIRIN 81 MG ECTAB PO SCH (09:00)
[2020-01-11] MEDS: FAMOTIDINE 20 MG TAB PO SCH (09:00)
[2020-01-11] MEDS ORDERED: ATORVASTATIN 40 MG TAB PO SCH (09:00)
[2020-01-11] MEDS ORDERED: CLOPIDOGREL BISULFATE 75 MG TAB PO SCH (09:00)
[2020-01-11] MEDS ORDERED: lisinopriL 5 MG TAB PO SCH (09:00)
[2020-01-11] MEDS: CHOLECALCIFEROL 1,000 UNITS 25 MCG TAB PO SCH (09:00)
--- NOTE | 2020-01-11 09:00 | Discharge Summary ---
Date of Service date of admission - January 09, 2020 date of discharge - January 11, 2020 Admission HPI Per Admitting Provider 64yo female with history of HTN and hyperlipidemia who presents with episodes of chest pressure beginning about 10 days ago. First episode was about 10 days ago while laying in bed. Lasted 30 minutes. Located over left chest. No associated dyspnea. About 1 day later she had a 2nd episode again lasting 30 minutes. Radiated to thoracic back region. The pain occurred at rest. No associated shortness of breath. Saw [facility] after her first episode of chest pressure and stress test was recommended. EKG during that visit showed anterior T wave inversions. She has had "numerous" episodes of chest pressure since that time. Pain is light in severity. Left breast. Still no shortness of breath. Her stress test was scheduled for last week but ultimately got postponed until today. Upon arrival today she had a new-onset LBBB and thus her stress test was canceled. She ultimately saw Dr Tan who performed echo. Echo showed a large wall motion abnormality of the LAD distribution. EF ~45%. Cardiac cath was recommended and arrangements were made for direct admission to [facility]. She states she woke up this morning with chest pressure over the left chest. It has been present all day. /10 in severity. No nausea, emesis, abdominal pain, shortness of breath, jaw pain, arm pain. No radiation today to the back. Principal Diagnosis coronary artery disease Discharge Exam Constitutional well developed, well nourished and + obese; no acute distress and no altered mental status ENMT external ear and nose normal, oropharynx normal Respiratory normal respiratory effort, lungs clear to auscultation Cardiovascular Rate/Rhythm: regular rate and regular rhythm Heart Sounds: normal S1 and normal S2; no murmur Vessels: posterior tibial pulses present and dorsalis pedis pulses present; no JVD Extremities: no edema Gastrointestinal (Abdomen) normal bowel sounds, soft, nontender, no hepatosplenomegaly Skin mild ecchymoses right wrist but no hematoma, aneurysm, or active bleeding Psychiatric A+Ox3, euthymic affect Discharge Data Allergies Allergy/AdvReac Type Severity Reaction Status Date / Time niacin Allergy Unknown "severe Verified 12/24/18 09:42 skin rash" Consultations [facility] - Feliciano Peña MD Procedures Performed Operation Date: 01/10/20 12:30 Actual Procedures s Cineradiography w/Routine Exam - Feliciano Peña MD p Cath, Left with Cors and Vent - Feliciano Peña MD Findings: LM -medium caliber, short, angiographically normal LAD -medium caliber, 40% mid segment disease, distal vessel without significant disease and wraps around apex. High first diagonal with hazy appearing 80% ostial stenosis (diagonal diameter <2 mm). Circumflex - Large caliber vessel without significant disease, large left PLB without disease RCA -dominant, medium caliber, tortuous proximally, luminal irregularities LVEDP -10 Small first diagonal difficult to lie out angiographically. In some views it appeared as if there was a possible branch occluded at takeoff of diagonal and leading to lateral wall. Unable to pass a pilot instructor 50 or whisper wire into area where possible branch noted. In the end small first diagonal thought to be likely culprit. Arterial Closure: TR band Summary: 1. Mild major epicardial coronary artery disease -30 to 40% mid LAD 2. Severe branch vessel disease 80% ostial small first diagonal 3. Normal intracardiac filling pressure Hospital Course (1) CAD (coronary artery disease): Patient had presented with 10 days of initially intermittent episodes of chest pressure, then ultimately the episodes became more frequent and on day of presentation became constant. Outpatient echo performed at [facility] on the day of admission revealed an EF of 45% with an LAD- distribution wall motion abnormality. She also had developed a new LBBB on day of admission. Upon admission there was concern for unstable angina or ACS and thus heparin infusion was initiated along with aspirin. 4 troponin levels were all normal fortunately. On hospital day #2 the patient was chest pain free. She subsequently underwent cardiac catheterization by Dr Feliciano Peña. This revealed a 30-40% mid-LAD lesion along with an 80% lesion in the first diagonal ostial branch (diagonal diameter <2 mm). RCA and left circumflex were free of significant disease. The 80% first diagonal lesion was felt not amenable to stenting; medical management was recommended. Post-cath she did well with no bleeding complication, stable vitals, and no cardiopulmonary symptoms. Post-cath creatinine remained stable. She was started on aspirin and plavix, high-intensity statin (lipitor 40mg), and low-dose JASS inhibitor. She has been on metoprolol xl pre-hospitalization and this will be continued. Prescription for SL nitro was given at discharge and indications for taking it reviewed. She had no signs of decompensated CHF in the midst of her newly-diagnosed ischemic cardiomyopathy. We also reviewed symptoms/signs of fluid retention from her cardiomyopathy. She will follow-up with Dr Todd Tan with [facility] within 1 week of discharge. She is an excellent candidate for cardiac rehab in the future. (2) Unstable angina: Concern for such with increasing number of episodes of chest pain over the 7-10 days prior to hospitalization. All troponin levels were negative during her stay ruling out recent ACS/acute VT. Treated with heparin infusion until the time of her heart catheterization. (3) Ischemic cardiomyopathy: EF of 45% on echo done at [facility] in [place] on 01/09/20. Remained compensated during the visit. Continue beta royer (metoprolol xl 25mg BID). Initiated on low-dose lisinopril 5mg daily. Counseled her on symptoms/signs of pulmonary edema and fluid retention. (4) Chest pain: 2nd ischemia. See discussion above in "CAD." Was chest-pain free for 36+ hours prior to discharge. (5) Hyperlipidemia: 01/02/20 outpatient lipid profile noted with LDL > 150 and trigs > 200. Started statin - lipitor 40mg once daily. Defer to PCP and [facility] management of such. May need dedicated agent for high triglycerides. (6) Depression: Continue effexor. (7) Hypertension: Continue beta royer. Also initiated on low-dose JASS inhibitor. (8) Obesity (BMI 30.0-34.9): BMI 34.7. Excellent candidate for cardiac rehab which will help with her weight, pre-DM, etc. (9) Prediabetes: Hba1c 6.2%. Patient counseled on this diagnosis and recommendations for treatment. Handouts given on pre-diabetes. TSH was normal during the stay. (10) LBBB (left bundle branch block): Seen on outpatient EKG on 01/09/20. During the visit here had incomplete LBBB. 2nd to ischemic heart disease. Total Time Total Time Spent Total Time Spent (In Minutes): 45 Total Time Includes: Examination of the Patient, Discharge Planning, Medication Reconciliation and Communication With Other Providers Discharge Plan Discharge Items Patient Disposition: Home - Self-Care Reason For Visit: CONCERN FOR ACUTE CORONARY SYNDROME Discharge Diagnosis: 1. coronary artery disease based on heart catheterization 2. mildly depressed heart function (ejection fraction of 45%) due to coronary artery disease 3. high cholesterol 4. pre-diabetes with hemoglobin a1c of 6.2% Activity: As commented below Activity Comment: no heavy exertional activities until seen by Dr Tan Lifting Comment: see "instructions" below Exercise/Sports: Wait until after follow-up appointment Non-emergency contact: Primary Care Provider and Stage Set Designer Call non-emergency contact if: you have any medication questions, your symptoms worsen, your pain is not controlled, your pain is worsening, your pain is unusual for you, your pain is concerning for you and you have a fever Follow-up/Referrals: Todd Tan DO [Physician] - 01/27/20 9:40 am (see Dr Tan within 1 week as scheduled ) Nba Verdin MD [Primary Care Provider] - 01/12/20 9:10 am (see Dr Verdin as scheduled ) Diet: Heart Healthy Fluids: 1800ml (7 cups) Addtl Attending Provider Instructions: You were admitted with increasing episodes of chest pain thought to be due to your heart. An echocardiogram done in the office by Dr Todd Tan showed signs that a portion of the heart wasn't getting enough oxygen because of blocked coronary arteries. After admission multiple blood tests for the heart did not show evidence of an actual heart attack event. Your heart monitoring (telemetry) was normal. A heart catheterization was performed by Dr Feliciano Peña with [facility] on 01/09. This showed the following - * the left anterior descending artery ("LAD") had a 40% blockage in the middle of the artery * one of the branches of the LAD called the "first diagonal" artery had an 80% blockage * this first diagonal artery blockage could not be stented; Dr Peña recommended medical management with medications (aspirin, lipitor, etc) * it is felt that your recent chest pain was likely due to the 80% blockage * the other 2 major heart vessels were relatively normal You will be taking the following medications for your heart - * metoprolol as previous * lisinopril once daily (new prescription) * plavix once daily (new prescription) * aspirin once daily (new prescription) * lipitor/atorvastatin once daily (new prescription) * nitroglycerin tablets - NEEDED - for chest pain Because the heart function is mildly decreased you theoretically could take on excess fluid/water in the future. If you notice rapid weight gains (more than 2-3 pounds over 1-2 days), difficulty breathing, swelling in your ankles/legs, or worsening abdominal swelling please let Dr Tan know right away. We are recommending cardiac rehab. Dr Tan can refer you for this. This is a structured exercise rehab program for folks with various types of heart disease. Lastly, your hemoglobin a1c was 6.2%. This means that you are a "pre-diabetic" and you are at risk of developing full-blown type 2 diabetes in the future. Please talk to Dr Verdin about ways to reduce your chances of developing full- blown diabetes. You can control this through diet. Of note - your TSH thyroid level was normal. Follow-up -- see separate section Additional Instructions -- Home Care: * Take your medications exactly as directed. Don't skip doses. * Ask your doctor about joining a heart rehabilitation program. * Tell your doctor if you are feeling depressed. Feelings of sadness are common after a heart attack, but it is important that you speak to someone if you are feeling overwhelmed by these feelings. * If you are having chest pain, call 911 for an ambulance. Do NOT drive yourself to the hospital. * Ask your family members to learn CPR. * Learn to take your own blood pressure and pulse. Keep a record of your results. Ask your doctor when you should seek emergency medical attention. He or she will tell you which blood pressure reading is dangerous. Lifestyle Changes: * Maintain a healthy weight. Get help to lose any extra pounds. * Cut back on salt. * Limit canned, dried, packaged, and fast foods. * Don't add salt to your food. * Season foods with herbs instead of salt when you cook. * Limit fatty foods. * Ask your doctor about having your lipid levels checked regularly. * Build up your activity according to your doctor's recommendation. * Ask your doctor when it's okay to resume sexual activity. * Try to manage stress. Return to [facility] if -- * you have fever over 100.4 degrees * you are having recurrent chest pain episodes * you have to use nitroglycerin tablets * you are short of breath * any other concerns Addtl Clay Puddler Provider Instructions: ACTIVITY RECOMMENDATIONS following your heart catheterization: It is common to feel weak and fatigue for a few days. * Do not drive or operate any motorized equipment for the next three days. * Limit stair usage (2 or 3 trips a day only) for the next three days. * Do not lift anything with your right arm heavier than 10 pounds for the next three days. * Do not engage in vigorous exercise or any sports until cleared by Dr Tan. * You may shower the day after your procedure, but do not immerse the area for three days (no swimming, no tub baths). Cleanse the site gently with soap and water. SPECIAL CARE INSTRUCTIONS: * You may replace the pressure dressing or band-aid the morning after the procedure. * After your procedure, it is normal to have a small bruise or small lump at the site. Examine your site daily for any change in the bruise or lump, redness, swelling, drainage or numbness. Notify your doctor if any change. BLEEDING: * If there is a small amount of bleeding at the site, lie down and apply firm pressure with a clean cloth for ten minutes. When the bleeding stops, lie quietly keeping the procedure limb straight for six hours. Notify your doctor as soon as possible. * If the bleeding does not stop after ten minutes or if there is a large amount of bleeding or spurting, call 911 immediately. Continue to lie down and hold firm pressure until help arrives. SKIN IRRITATION: * You may experience some redness and/or swelling in the area where radiation was administered. If any skin irritation occurs, please contact your family physician or business liaison officer. Pending Studies at Discharge: No Stand-Alone Forms: My [facility], Smoking Cessation Medications and DC Order Prescriptions: New clopidogrel 75 mg Tablet 75 mg PO QAM Qty: 30 RF: 0 aspirin 81 mg Tablet,Delayed Release (Dr/Ec) 81 mg PO QAM Qty: 90 RF: 3 nitroglycerin [Nitrostat] 0.4 mg Tablet, Sublingual 0.4 mg sublingual UD PRN (Reason: chest pain) Qty: 1 RF: 0 lisinopril [Zestril] 5 mg Tablet 5 mg PO QAM Qty: 30 RF: 5 atorvastatin 40 mg tablet 40 mg PO DAILY Qty: 30 RF: 5 Continued venlafaxine [Effexor XR] 75 mg Capsule,Extended Release 24hr 75 mg PO QAM RF: 0 epinephrine [EpiPen] 0.3 mg/0.3 mL Auto-Injector 0.3 mg IM Q3H PRN (Reason: ALLERGIES) RF: 0 cholecalciferol (vitamin D3) [Vitamin D3] 1,000 unit Capsule 1,000 unit PO QAM RF: 0 metoprolol succinate 25 mg Capsule,Sprinkle,Er 24hr 25 mg PO BID RF: 0 Discharge Orders: Discharge Order (Routine); Ordered 01/11/20 Ordered By: Jaime Montes/Other Patient Handouts: Prediabetes, A1C Admission Data Admit Date/Time: 01/09/20 17:08 Attending Provider: Jaime Martínez Admit Provider: Jaime Martínez Primary Care Provider: Nba Verdin Other Providers: Yrn Peña Other Interventions: Discharge Summary Assessment (RN) Last Done: 01/11/20 09:50 Coding Level of Care Code D/C Day Management >30 mins Diagnoses CAD (coronary artery disease) I25.10 Unstable angina I20.0 Ischemic cardiomyopathy I25.5 Chest pain R07.9 Chest pain type: unspecified Hyperlipidemia E78.2 Hyperlipidemia type: mixed hyperlipidemia Depression F32.9 Depression Type: unspecified Hypertension I10 Hypertension type: essential hypertension Obesity (BMI 30.0-34.9) E66.9 Prediabetes R73.03 LBBB (left bundle branch block) I44.7
--- NOTE | 2020-01-11 09:02 | Cardiology Progress Note ---
Date of Service January 11, 2020 Subjective She feels well this morning. She denies any chest tightness or chest pressure. She has some right scapular discomfort which she thinks is more musculoskeletal and is different than the scapular discomfort she had 10 days ago. She denies any lightheadedness or dizziness. She does have bruising and ecchymosis at the right wrist site. She has some tenderness there. Her hand is warm to touch. She denies any lightheadedness or dizziness. She did ambulate in the hallway 3 times without any angina she had some very mild shortness of breath. Results & Data Vital Signs (Past 12 Hours) Vital Signs Temp Pulse Pulse Resp BP Pulse Ox 01/11/20 08:07 37.0 C 80 19 146/89 H 96 01/11/20 04:27 36.7 C 74 16 134/88 93 01/11/20 00:00 82 01/10/20 23:18 36.9 C 74 17 146/92 H 94 She is awake alert and oriented x3 she is in no acute distress HEENT: 1+ carotid upstrokes no evidence of carotid bruits jugular venous pressure appeared normal her sclera was anicteric her hearing is normal Lungs: Clear to auscultation bilaterally no rales rhonchi or wheezing Heart: Regular rate and rhythm no appreciable murmurs rubs or gallops Abdomen: Soft nontender senna positive bowel sounds Extremities: 2+ right radial pulse her right hand is warm to touch she does have moderate ecchymosis at the cath site. She has no lower extremity edema Findings: LM -medium caliber, short, angiographically normal LAD -medium caliber, 40% mid segment disease, distal vessel without significant disease and wraps around apex. High first diagonal with hazy appearing 80% ostial stenosis (diagonal diameter <2 mm). Circumflex - Large caliber vessel without significant disease, large left PLB without disease RCA -dominant, medium caliber, tortuous proximally, luminal irregularities LVEDP -10 Small first diagonal difficult to lie out angiographically. In some views it appeared as if there was a possible branch occluded at takeoff of diagonal and leading to lateral wall. Unable to pass a die attacher 50 or whisper wire into area where possible branch noted. In the end small first diagonal thought to be likely culprit. 1. Unstable angina 2. High first diagonal as the culprit lesion 3. Intermittent left bundle branch block 4. Mild left ventricular dysfunction with wall motion abnormalities in the expected territory of the diagonal branch 5. Hyperlipidemia From my standpoint she is stable to be discharged home she should be discharged on aspirin 81 mg daily, Plavix 75 mg daily, low-dose Toprol, and high intensity statin therapy. I did discuss her she has any further scapular discomfort or chest tightness we could add either amlodipine 2-1/2 mg daily or long-acting nitrates. At this point she did not wish to add any additional medication. We will arrange for cardiac rehab upon discharge. I will see her in the office in early January. I did discuss with her if she has any further discomfort to let us know. We did discuss post cath instructions. All this was discussed with the nursing staff and interventional cardiology. We will need to repeat her echocardiogram in 3 months time to reassess her LV function.
== END 2020-01-11 10:20 | disposition home or self-care (01) | DRG 287 ==
LOC: 2S 17:08

== ENCOUNTER 2025-02-01 16:24 | Inpatient (IN) ==
[2025-02-01] MEDS: ALBUT/IPRATROP 3MG/0.5MG NEB 3 ML VIAL NEB STA (16:47)
--- NOTE | 2025-02-01 16:59 | Emergency Department Note ---
Impression & Plan Aspiration pneumonia, Chest pain ED Provider Note NAME: NORMA ROBIN AGE: 70 SEX: F : 1955 ARRIVES VIA: Walk-In INFORMANT: Patient, ED PROVIDER(S): Carlo Wang DO CHIEF COMPLAINT: Difficulty breathing HPI: The patient is a 70-year-old female who presented to the emergency department directly from the endoscopy suite after vomiting. The patient received propofol for a colonoscopy. The patient states that her last fluid intake was around noon. She last ate solid foods last night. The patient complains of chest pain as well as difficulty breathing. She has no fever. The patient denies having any abdominal pain at this time. ROS: See above HPI for pertinent positives & negatives. A total of 10 systems reviewed and were otherwise negative. PAST MEDICAL HISTORY: See Below PAST SURGICAL HISTORY: See Below FAMILY HISTORY: See Below SOCIAL HISTORY: See Below HOME MEDICATIONS: See Below ALLERGIES: See Below VITALS: See Below PHYSICAL EXAMINATION: GENERAL: The patient is awake and alert. The patient is anxious and appears uncomfortable. EYES: The conjunctivae are clear. The pupils are round and reactive. EARS, NOSE, MOUTH AND THROAT: The nose is without any evidence of any deformity. Voice is hoarse. NECK: The neck is nontender and supple. Diminished breath sounds are noted throughout. There is scattered rhonchi noted throughout. CARDIOVASCULAR: Regular rate and rhythm noted there no murmurs rubs or gallops normal S1 normal S2. GASTROINTESTINAL: The abdomen is soft. Abdomen is nontender. MUSCULOSKELETAL/EXTREMITIES: There is no evidence of gross deformity full range of motion is noted in the hips and shoulders. SKIN: There is no obvious evidence of any rash. There are no petechiae, pallor or cyanosis noted. NEUROLOGIC: Patient is awake alert and oriented x3 MEDICAL DECISION MAKING: The patient is a 70-year-old female who presented to the emergency department for an evaluation of difficulty breathing. The patient was at the GI lab after receiving sedation she had an episode of nausea vomiting. She was felt to suffered aspiration. Chest x-ray does appear to be consistent with a large infiltrate in the left lobe. The patient was treated with supplemental oxygen. She was reevaluated multiple times. I discussed her condition with the on-call [facility] hospitalist. They have agreed to evaluate the patient in the emergency department for further management and disposition. Triage Nursing notes reviewed. Prior medical records reviewed Vital Signs: reviewed and remarkable for hypoxia Differential diagnosis: Reactive airway disease, pneumonia, pneumothorax, COPD, CHF, infections, cardiac ischemia, pulmonary embolism, musculoskeletal, gastrointestinal, as well as other pathologies. ER treatment provided: See below Diagnostics interpreted by me: ECG: EKG was obtained in the emergency department. My interpretation is normal sinus rhythm at 72 bpm. There were no PVCs noted. Left bundle branch block pattern was noted. This was compared to tracing from March 14, 2024. No changes were noted. Cardiac Monitoring: An order was placed for continuous cardiac monitoring. The monitor shows a rate of 83 bpm with sinus rhythm. Laboratory studies: As stated above and show below. Imaging studies: See below. Radiographic imaging was reviewed by myself Consultation(s): Dr Martínez was notified about the patient. He is on-call for the [facility] hospitalist group. Past Med/Surg History Problem List (Updated 02/01/25 @ 22:01 by Jaime Martínez MD) Chronic diarrhea Acute hypoxic respiratory failure Pleuritic chest pain Chest pain (Acute) Aspiration pneumonia (Acute) Dysphagia GERD (gastroesophageal reflux disease) (Acute) LBBB (left bundle branch block) CAD (coronary artery disease) Prediabetes Dyslipidemia Obesity (BMI 30.0-34.9) Chest pain Ischemic cardiomyopathy Unstable angina Bilateral ankle pain current Encounter for pre-operative examination Depression Hyperlipidemia Hypertension Medical History Hx of migraines > 10 years Depression Ischemic cardiomyopathy Dyslipidemia Prediabetes no longer taking ozempic CAD (coronary artery disease) LBBB (left bundle branch block) History of angina (2020) [facility], had heart cath- no stents- follows with cardio dr. prieto (~ 1 months) HTN (hypertension) HLD (hyperlipidemia) History of seizure as a child, age 3 GERD (gastroesophageal reflux disease) Diabetes mellitus, type 2 Surgical History Hx of bilateral cataract extraction Hx of cardiac cath (2020) [facility], no mi - chest pain- no stents- follows with cardio dr. prieto (~ 1 months) History of lumpectomy right breast History of myomectomy History of hysterectomy BSO History of colonoscopy History of appendectomy History of tonsillectomy Family History (Updated 02/01/25 @ 21:58 by Jaime Martínez MD) Father , age 93 "old age" Heart block AV complete Mother , age 88 Stroke Other Heart disease Hypertension No family history of bleeding disorder Denies family history of Myocardial infarction Social History (Updated 02/01/25 @ 22:00 by Jaime Martínez MD) Smoking Status: Unknown if ever smoked Age Started Using Tobacco: 21; packs per day: 0.25; Second Hand Exposure: No; Do You Dip or Chew Tobacco: No; Hx Alcohol Use: Yes Alcohol type: hard liquor Alcohol type Comment: [place] once nightly Alcohol Intake Frequency: 4 or More x per/Week Hx Substance Use: No Preferred Language: [place] Communication Ability: Effective Handicapper [employer] Required: No Beliefs That Will Affect Care: None marital status: Current Living Situation: Alone current occupational status: retired 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, 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[employer]) How many Children do You have: 0 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[employer]; no children Feels Safe at Home: Yes Assistive Devices: Glasses Allergies Allergies Allergy/AdvReac Type Severity Reaction Status Date / Time niacin Allergy Mild "severe Verified 02/01/25 14:37 skin rash" pantoprazole Allergy Mild Cough Verified 02/01/25 14:37 riboflavin (vitamin B2) Allergy Mild Itching Verified 02/01/25 14:37 Home Meds Home Medications Medication Instructions Recorded Confirmed epinephrine 0.3 mg/0.3 mL 0.3 mg IM Q3H PRN ALLERGIES 04/20/18 02/01/25 injection, auto-injector (EpiPen) famotidine 20 mg tablet (Acid 20 mg PO QAM 08/19/23 02/01/25 Pigment Weigher (famotidine)) losartan 50 mg tablet 50 mg PO QAM 08/19/23 02/01/25 ezetimibe 10 mg tablet 10 mg PO HS 02/01/25 02/01/25 metoprolol tartrate 25 mg tablet 25 mg PO BID 02/01/25 02/01/25 rosuvastatin 40 mg tablet 40 mg PO HS 02/01/25 02/01/25 venlafaxine 37.5 mg 37.5 mg PO DAILY 02/01/25 02/01/25 capsule,extended release 24 hr Previous Rx's Medication Instructions Recorded aspirin 81 mg tablet,delayed 81 mg PO QAM #90 tabs 01/11/20 release nitroglycerin 0.4 mg sublingual 0.4 mg sublingual UD PRN chest 01/11/20 tablet (Nitrostat) pain #1 btl Results & Data (ED) Vital Signs Vital Signs - 24 hr 02/01/25 16:29 02/01/25 16:32 02/01/25 16:41 Pulse Rate 76 77 73 Pulse Rate [Right Finger] Respiratory Rate 20 22 Respiratory Effort / Characteristics Blood Pressure 134/97 134/97 Blood Pressure Mean 109 109 Pulse Oximetry 92 Oxygen Delivery Method Oxymask Oxygen Flow Rate 10 Fraction of Inspired Oxygen Sepsis Recent Fever Within 48 Hours No Sepsis New/Unexplained Change in Mental Status No Sepsis Action Taken by Nursing No Action Required 02/01/25 17:21 02/01/25 17:29 Pulse Rate Pulse Rate [Right Finger] 73 Respiratory Rate 16 Respiratory Effort / Characteristics Non-Labored Spontaneous Blood Pressure Blood Pressure Mean Pulse Oximetry 94 Oxygen Delivery Method High Flow Nasal Cannula Oxygen Flow Rate 30 Fraction of Inspired Oxygen 75 70 Sepsis Recent Fever Within 48 Hours Sepsis New/Unexplained Change in Mental Status Sepsis Action Taken by [facility] Medications Current Medication List: was personally reviewed by me Laboratory Data Attestation: I reviewed the patient's lab results. 02/01/25 Unknown 02/01/25 16:40 Lab Results 02/01/25 Range/Units 16:40 PT 10.9 (9.0-12.0) Seconds INR 1.0 (0.9-1.1) APTT 22 (21-31) Seconds PTT Ratio 0.8 Sodium 139 (136-145) mmol/L Potassium 4.1 (3.5-5.1) mmol/L Chloride 105 (98-107) mmol/L Carbon Dioxide 29 (21-32) mmol/L Anion Gap 5 (3-11) BUN 12 (6-23) mg/dl Creatinine 0.99 (0.6-1.2) mg/dl Est Cr Clr Drug Dosing 58.9 ml/min eGFR 60.58 BUN/Creatinine Ratio 12.1 (10-20) Glucose 96 (70-99(Fasting)) mg/dl Calcium 8.9 (8.6-10.3) mg/dl Total Bilirubin 0.5 (0.2-1.0) mg/dl AST 18 (13-39) U/L ALT 20 (7-52) U/L Alkaline Phosphatase 75 (34-104) U/L Troponin I High Sens 4.5 (0-14) pg/ml Total Protein 6.9 (6.0-8.3) gm/dl Albumin 3.9 (3.4-5.0) gm/dl Globulin 3.0 (2.5-4.0) gm/dl Albumin/Globulin Ratio 1.3 (0.9-2) Lipase 32 (11-82) U/L Administered Medications Famotidine (Famotidine 20 Mg Tab) 20 mg PO BID CHERYL Stop: 03/03/25 21:36 Last Admin: 02/01/25 22:08 Dose: 20 mg Documented By: KURT Guaifenesin (Guaifenesin 600 Mg Tabcr) 1,200 mg PO Q12 CHERYL Stop: 03/03/25 21:36 Last Admin: 02/01/25 22:08 Dose: 1,200 mg Documented By: KURT Lansoprazole (Lansoprazole 30 Mg Soltab) 30 mg PO BID CHERYL Stop: 03/03/25 21:36 Last Admin: 02/01/25 22:08 Dose: 30 mg Documented By: KURT Menthol (Cough Drop (Sugar Free) Beth 24 Beth/1 Box) 1 beth BUCCAL Q2H PRN PRN Reason: Sore Throat Stop: 03/03/25 21:42 Last Admin: 02/01/25 22:09 Dose: 1 beth Documented By: KURT Metoprolol Succinate (Metoprolol Succ 25mg Ext Rel Tab) 25 mg PO BID CHERYL Stop: 03/03/25 21:44 Last Admin: 02/01/25 22:08 Dose: 25 mg Documented By: KURT Rosuvastatin Calcium (Rosuvastatin Calcium 20 Mg Tab) 40 mg PO HS CHERYL Stop: 03/03/25 21:59 Last Admin: 02/01/25 22:08 Dose: 40 mg Documented By: KURT Discontinued Medications Albuterol (Albut/Ipratrop 3mg/0.5mg Neb 3 Ml Vial) 3 ml NEB NOW STA; Protocol Stop: 02/01/25 16:42 Last Admin: 02/01/25 16:47 Dose: 3 ml Documented By: QGV Atorvastatin Calcium (Atorvastatin 40 Mg Tab) 40 mg PO QPM CHERYL Stop: 03/03/25 21:36 Last Admin: 02/01/25 22:02 Dose: Not Given Documented By: KURT Piperacillin Sod/Tazobactam Sod (Zosyn) 4.5 gm in 100 mls @ 200 mls/hr IV NOW ONE; Protocol Stop: 02/01/25 18:45 Last Infusion: 02/01/25 19:12 Dose: Infused Documented By: Admin: 02/01/25 18:42 Dose: 200 mls/hr Documented By: QGV Acetaminophen (Ofirmev) 1,000 mg in 100 mls @ 400 mls/hr IV NOW STA Stop: 02/01/25 21:57 Last Admin: 02/01/25 22:00 Dose: 400 mls/hr Documented By: KURT Morphine Sulfate (Morphine Sulfate 4 Mg/Ml 1 Ml Carp\\Vial) 4 mg IV NOW STA Stop: 02/01/25 17:03 Last Admin: 02/01/25 17:07 Dose: 4 mg Documented By: QGV Ondansetron HCl (Ondansetron Inj 2 Mg/Ml 2 Ml Vial) 4 mg IV NOW STA Stop: 02/01/25 17:03 Last Admin: 02/01/25 17:07 Dose: 4 mg Documented By: QGV Imaging Data Attestation: I personally reviewed and interpreted this imaging study as follows: My Impression: 1 view chest x-ray was obtained prior to the patient being sent to the emergency department. My interpretation is left-sided infiltrate, final report in the EMR. Discharge Plan Visit Data Chief Complaint: Choking ED Provider: Carlo Wang Discharge Problem: Aspiration pneumonia, Chest pain Patient Disposition: Admitted As Inpatient Condition: Fair Discharge Instructions Interventions: ED Discharge Assessment Last Done: 02/01/25 20:39
[2025-02-01] MEDS: MoRPHine SULFATE 4 MG/ML 1 ML CARP\\VIAL IV STA (17:07)
[2025-02-01] MEDS: ONDANSETRON INJ 2 MG/ML 2 ML VIAL IV STA (17:07)
[2025-02-01 17:09] LABS: Hematocrit (blood only) 39.6 % (37.0-47.0); Hemoglobin 12.9 g/dl (12.0-16.0); Immature Granulocytes # (auto) 0.02 K/uL (0.01-0.20); Immature Granulocytes % (auto) 0.3 %; Mean Corpuscular Hemoglobin 32.5 pg (25.0-34.0); Mean Corpuscular Volume 99.7 fL (80.0-100.0); Platelet Count 262 K/uL (130-400); RDW Standard Deviation 45.6 fL (36.4-46.3); Red Blood Count 3.97 M/uL (4.20-5.40); White Blood Count 6.38 K/ul (4.8-10.8)
[2025-02-01 17:26] LABS: Alanine Aminotransferase 20.0 U/L (7-52); Albumin Globulin Ratio 1.3 (0.9-2); Alkaline Phosphatase 75.0 U/L (34-104); Anion Gap 5.0 (3-11); Bilirubin,Total 0.5 mg/dl (0.2-1.0); Blood Urea Nitrogen 12.0 mg/dl (6-23); Calcium 8.9 mg/dl (8.6-10.3); Carbon Dioxide 29.0 mmol/L (21-32); Chloride 105.0 mmol/L (98-107); Creatinine Clr Calc Pharmacy 58.9 ml/min; Globulin 3.0 gm/dl (2.5-4.0); Glucose 96.0 mg/dl (70-99(Fasting)); Lipase 32.0 U/L (11-82); Potassium 4.1 mmol/L (3.5-5.1); Sodium 139.0 mmol/L (136-145); Total Protein 6.9 gm/dl (6.0-8.3)
[2025-02-01 17:43] LABS: INR 1.0 (0.9-1.1); Partial Thromboplastin Time 22 Seconds (21-31); Prothrombin Time 10.9 Seconds (9.0-12.0)
--- NOTE | 2025-02-01 17:52 | History & Physical Report ---
Date of Service February 01, 2025 Assessment & Plan (1) Aspiration pneumonia: (2) Acute hypoxic respiratory failure: (3) Pleuritic chest pain: (4) GERD (gastroesophageal reflux disease): (5) LBBB (left bundle branch block): (6) CAD (coronary artery disease): (7) Dyslipidemia: (8) Ischemic cardiomyopathy: (9) Hypertension: (10) Hyperlipidemia: (11) Depression: (12) Chronic diarrhea: Plan Pleasant 70yo female with history of CAD, LBBB, chronic systolic CHF 2nd ischemic cardiomyopathy, GERD, chronic diarrhea, hyperlipidemia, and HTN who presented today for elective colonoscopy. She had been having chronic diarrhea dating back to 2023 and colonoscopy was to rule out any colonic pathology contributing to her symptoms. During her colonoscopy she had vomiting and heavy concern for aspiration as her O2 sats dropped to the 50s during the procedure. Required respiratory assi stance by anesthesia and chest x-ray showed LLL pneumonia. #acute hypoxic resp failure 2nd to aspiration pneumonia - -currently on high-flow NC but weaning -start zosyn 4.5gm q8h -MRSA swab negative thus defer on coverage for such -defer on atypical coverage -schedule bronchodilators -schedule saline nebs -consider chest PT -mucinex BID -flutter valve/incentive spirometer -consider diuretics #GERD - -schedule pepcid and prevacid (has protonix allergy) #FEN - -start with clear liquids; if tolerates then regular diet #chronic systolic CHF 2nd to ischemic cardiomyopathy - -only echo scanned in chart is from 2020 showing EF 45% with WMA -appears compensated today, but low threshold to institute diuretic therapy -cont meto succ -hold losartan for now #pleuritic chest discomfort on left - -likely 2nd to aspiration pneumonia -doubt PE -doubt CAD #hyperlipidemia - -cont statin -cont zetia #chronic diarrhea - -consider stool studies #h/o pre-DM - -check a1c in am #DVT Proph - -if stable tomorrow add heparin or lovenox SC History of Present Illness Chief Complaint: cough, dyspnea, hypoxia Primary Care Provider: Gabriela Dc PA-C [place] 70yo female with history of CAD, LBBB, chronic systolic CHF 2nd ischemic cardiomyopathy, GERD, chronic diarrhea, hyperlipidemia, and HTN who presented today for elective colonoscopy. She had been having chronic diarrhea dating back to 2023 and colonoscopy was to rule out any colonic pathology contributing to her symptoms. She prepped at home in usual fashion and had no difficulties with such. She has felt well and denies any recent illnesses. Denies any h/o asthma, COPD, or other lung disease. During her colonoscopy (Dr Vj Andersen from [facility] was performing the endoscopy) she was noted to have multiple episodes of vomiting of mainly clear liquid when she was in the left lateral decubitus position for the procedure. The procedure was terminated immediately. By report from anesthesia she desatted into the 50s, oral airway was inserted, and bag/mask ventilation was initiated with 100% FiO2. O2 sats improved to the 90s with these measures. Initial exam revealed extensively wheezing. She was taken to the PACU. While in PACU a chest x-ray showed LLL infiltrates. Due to persistent hypoxia and the concern for aspiration pneumonitis she was sent to the ER for evaluation. During her ER stay she was ultimately placed on high-flow NC, 35 L and 70% FiO2. Albuterol was given for wheezing. Patient reported that the albuterol helped her wheezing. Morphine was given for a left-sided pleuritic pain she was experiencing. She had hoarse voice and ongoing cough, harsh cough. Patient states she had none of these symptoms prior to her procedure. Allergies Allergy/AdvReac Type Severity Reaction Status Date / Time niacin Allergy Mild "severe Verified 02/01/25 14:37 skin rash" pantoprazole Allergy Mild Cough Verified 02/01/25 14:37 riboflavin (vitamin B2) Allergy Mild Itching Verified 02/01/25 14:37 Home Medications Medication Instructions Recorded Confirmed Type epinephrine 0.3 mg/0.3 mL 0.3 mg IM Q3H PRN ALLERGIES 04/20/18 02/01/25 History injection, auto-injector (EpiPen) aspirin 81 mg tablet,delayed 81 mg PO QAM #90 tabs 01/11/20 02/01/25 Rx release nitroglycerin 0.4 mg sublingual 0.4 mg sublingual UD PRN chest 01/11/20 02/01/25 Rx tablet (Nitrostat) pain #1 btl famotidine 20 mg tablet (Acid 20 mg PO QAM 08/19/23 02/01/25 History Barrel Cutter (famotidine)) losartan 50 mg tablet 50 mg PO QAM 08/19/23 02/01/25 History ezetimibe 10 mg tablet 10 mg PO HS 02/01/25 02/01/25 History metoprolol tartrate 25 mg tablet 25 mg PO BID 02/01/25 02/01/25 History rosuvastatin 40 mg tablet 40 mg PO HS 02/01/25 02/01/25 History venlafaxine 37.5 mg 37.5 mg PO DAILY 02/01/25 02/01/25 History capsule,extended release 24 hr Past Med/Surg History Problem List (Updated 02/01/25 @ 22:01 by Jaime Martínez MD) Chronic diarrhea Acute hypoxic respiratory failure Pleuritic chest pain Chest pain (Acute) Aspiration pneumonia (Acute) Dysphagia GERD (gastroesophageal reflux disease) (Acute) LBBB (left bundle branch block) CAD (coronary artery disease) Prediabetes Dyslipidemia Obesity (BMI 30.0-34.9) Chest pain Ischemic cardiomyopathy Unstable angina Bilateral ankle pain current Encounter for pre-operative examination Depression Hyperlipidemia Hypertension Medical History Hx of migraines > 10 years Depression Ischemic cardiomyopathy Dyslipidemia Prediabetes no longer taking ozempic CAD (coronary artery disease) LBBB (left bundle branch block) History of angina (2020) [facility], had heart cath- no stents- follows with cardio dr. prieto (~ 1 months) HTN (hypertension) HLD (hyperlipidemia) History of seizure as a child, age 3 GERD (gastroesophageal reflux disease) Diabetes mellitus, type 2 Surgical History Hx of bilateral cataract extraction Hx of cardiac cath (2020) [facility], no mi - chest pain- no stents- follows with cardio dr. prieto (~ 1 months) History of lumpectomy right breast History of myomectomy History of hysterectomy BSO History of colonoscopy History of appendectomy History of tonsillectomy Family History (Updated 02/01/25 @ 21:58 by Jaime Martínez MD) Father , age 93 "old age" Heart block AV complete Mother , age 88 Stroke Other Heart disease Hypertension No family history of bleeding disorder Denies family history of Myocardial infarction Social History (Updated 02/01/25 @ 22:00 by Jaime Martínez MD) Smoking Status: Unknown if ever smoked Tobacco Type: Cigarettes Age Started Using Tobacco: 21; packs per day: 0.25; Second Hand Exposure: No; Do You Dip or Chew Tobacco: No; Hx Alcohol Use: Yes Alcohol type: hard liquor Alcohol type Comment: Avila once nightly Alcohol Intake Frequency: 4 or More x per/Week Hx Substance Use: No Preferred Language: Iranian Communication Ability: Effective Broadcast Field Supervisor Required: No Beliefs That Will Affect Care: None marital status: Current Living Situation: Alone current occupational status: retired 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, 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[employer]) How many Children do You have: 0 Other Information That Helps Us Care for You: No 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[employer]; no children Feels Safe at Home: Yes Safety Concerns: Feels Safe At This Time Assistive Devices: Glasses Assistive Devices Comment: reading glasses Review of Systems Review of Systems: gen - no fevers, chills, or recent appetite issues; no weight change eyes - no visual changes HENT - no recent URI symptoms, no dysphagia CV - pleuritic discomfort on left - started post colonoscopy; no recent edema pulm - cough, congestion, chest tightness, mild dyspnea GI - no nausea/emesis/abd pain; chronic diarrhea - no recent dysuria endo - no diabetes neuro - no headache musculo - no joint swelling skin - no rash Physical Exam Physical Exam: gen - mild tachypnea noted; hoarse voice; able to talk in complete sentences; pleasant eyes - PERRL HENT - MMM, hoarse voice neck - no JVD, no lymph nodes heart - RRR, s1 s2, no murmur lungs - diffuse wheezes b/l, extensive rales L base, mild rales R base, decreased BS L base, mild tachypnea abd - soft NT ND BS+ ext - no edema, pulses b/l feet 2+ neuro - strength 5/5 x 4 exts skin - no rash psych - a/o x 3 Results & Data Results & Data Vital Signs (Past 12 Hours) Vital Signs Pulse Pulse Resp BP Pulse Ox O2 Del Method O2 Flow Rate 02/01/25 17:29 02/01/25 17:21 73 16 94 High Flow Nasal Cannula 30 02/01/25 16:41 73 22 134/97 92 Oxymask 10 02/01/25 16:32 77 FiO2 02/01/25 17:29 70 02/01/25 17:21 75 02/01/25 16:41 02/01/25 16:32 Laboratory Results Laboratory Results - last 24 hr 02/01/25 02/01/25 02/01/25 16:40 18:39 Unknown WBC 6.38 RBC 3.97 L Hgb 12.9 Hct 39.6 MCV 99.7 MCH 32.5 MCHC 32.6 RDW Std Deviation 45.6 RDW Coeff of Nila 12.4 Plt Count 262 MPV 9.9 Immature Gran % (Auto) 0.3 Neut % (Auto) 52.8 Lymph % (Auto) 34.2 [place] % (Auto) 10.8 Eos % (Auto) 1.4 Baso % (Auto) 0.5 Neut # (Auto) 3.37 Lymph # (Auto) 2.18 [place] # (Auto) 0.69 H Eos # (Auto) 0.09 Baso # (Auto) 0.03 Immature Gran # (Auto) 0.02 PT 10.9 INR 1.0 APTT 22 PTT Ratio 0.8 Sodium 139 Potassium 4.1 Chloride 105 Carbon Dioxide 29 Anion Gap 5 BUN 12 Creatinine 0.99 Est Cr Clr Drug Dosing 58.9 eGFR 60.58 BUN/Creatinine Ratio 12.1 Glucose 96 Calcium 8.9 Total Bilirubin 0.5 AST 18 ALT 20 Alkaline Phosphatase 75 Troponin I High Sens 4.5 Total Protein 6.9 Albumin 3.9 Globulin 3.0 Albumin/Globulin Ratio 1.3 Lipase 32 Nasal Screen MRSA (PCR) Negative Diagnostic Findings Chest x-ray: Clinical History: Aspiration Technique: A frontal view of the chest was obtained Comparison is made to the prior examination dated 03/14/2024 Findings: There is left midlung infiltrate, concerning for pneumonia. The heart is mildly enlarged. No definite pleural effusion or pneumothorax is seen. No fracture is noted. No foreign body is seen Impression: 1. Suspected left lung pneumonia 2. Mild cardiomegaly ACT 112: Positive. There are findings on this exam that require communication between the performing entity and the patient following Patient Test Result Information Act ([place] ACT 112) guidelines. Electronically signed by Barry Au 02-01-2025 5:19 PM EKG - NSR, LBBB (chronic), no ST changes Code Status & VTE Plan Code Status full code PG Care Time/CCT Total # of Minutes Spent Total Time Spent with Patient: Total time spent is greater than 50% in coordination of care (as documented) at patient's floor/unit and/or counseling patient: Coding Level of Care Code 12798 INT INP/OBS CARE 2/55MIN Diagnoses Aspiration pneumonia J69.0 Acute hypoxic respiratory failure J96.01 Pleuritic chest pain R07.81 GERD (gastroesophageal reflux disease) K21.9 LBBB (left bundle branch block) I44.7 CAD (coronary artery disease) I25.10 Dyslipidemia E78.5 Ischemic cardiomyopathy I25.5 Essential hypertension I10 Hypertension type: essential hypertension Mixed hyperlipidemia E78.2 Hyperlipidemia type: mixed hyperlipidemia Depression, unspecified depression type F32.9 Depression Type: unspecified Chronic diarrhea K52.9 (9) Hypertension Hypertension type: essential hypertension Qualified Code(s): I10 - Essential (primary) hypertension (10) Hyperlipidemia Hyperlipidemia type: mixed hyperlipidemia Qualified Code(s): E78.2 - Mixed hyperlipidemia (11) Depression Depression Type: unspecified Qualified Code(s): F32.9 - Major depressive disorder, single episode, unspecified
[2025-02-01] MEDS: PIPERACILLIN/TAZOBACTAM 4.5 GM/100 ML BAG IV ONE (18:42)
[2025-02-01] MEDS ORDERED: ONDANSETRON INJ 2 MG/ML 2 ML VIAL IV PRN (21:37)
[2025-02-01] MEDS ORDERED: MELATONIN 3 MG TAB PO PRN (21:37)
[2025-02-01] MEDS ORDERED: ACETAMINOPHEN 325 MG TAB PO PRN (21:37)
[2025-02-01] MEDS ORDERED: NITROGLYCERIN SL 0.4 MG/TAB TAB SL PRN (21:37)
[2025-02-01] MEDS: ACETAMINOPHEN 1,000 MG/100 ML VIAL IV STA (22:00)
[2025-02-01] MEDS: ATORVASTATIN 40 MG TAB PO SCH (22:02)
[2025-02-01] MEDS: ROSUVASTATIN CALCIUM 20 MG TAB PO SCH (22:08)
[2025-02-01] MEDS: FAMOTIDINE 20 MG TAB PO SCH (22:08)
[2025-02-01] MEDS: guaiFENesin 600 MG TABCR PO SCH (22:08)
[2025-02-01] MEDS: METOPROLOL SUCC 25MG EXT REL TAB PO SCH (22:08)
[2025-02-01] MEDS: LANSOPRAZOLE 30 MG SOLTAB PO SCH (22:08)
[2025-02-01] MEDS: COUGH DROP (SUGAR FREE) LOZ 24 LOZ/1 BOX BUCCAL PRN (22:09)
[2025-02-01] MEDS: SODIUM CHLOR 7% 4 ML NEB NEB SCH (22:42)
[2025-02-01] MEDS: ALBUT/IPRATROP 3MG/0.5MG NEB 3 ML VIAL NEB SCH (22:42)
[2025-02-01] MEDS: PIPERACILLIN/TAZOBACTAM 4.5 GM/100 ML BAG IV SCH (23:35)
[2025-02-02 07:09] LABS: Hemoglobin A1C 6.4 % (4.5-5.6)
[2025-02-02] MEDS: EZETIMIBE 10 MG TAB PO SCH (08:11)
[2025-02-02] MEDS: ASPIRIN 81 MG ECTAB PO SCH (08:11)
[2025-02-02] MEDS: VENLAFAXINE HCL XR 37.5 MG CAPXR PO SCH (08:12)
[2025-02-02 09:29] LABS: Anion Gap 9.0 (3-11); Blood Urea Nitrogen 11.0 mg/dl (6-23); Calcium 9.0 mg/dl (8.6-10.3); Carbon Dioxide 26.0 mmol/L (21-32); Chloride 103.0 mmol/L (98-107); Creatinine Clr Calc Pharmacy 55.8 ml/min; Glucose 135.0 mg/dl (70-99(Fasting)); Magnesium 1.8 mg/dl (1.7-2.4); Potassium 4.6 mmol/L (3.5-5.1); Sodium 138.0 mmol/L (136-145)
--- NOTE | 2025-02-02 10:15 | XRay Report ---
XR chest 1V portable CLINICAL HISTORY: LLL pneumonia, hypoxia, interval change COMPARISON STUDY: 02/01/2025 FINDINGS: Heart size and pulmonary vasculature are normal. There is stranding and hazy opacity at the left lung base with partial obscuration of the left hemidiaphragm, mildly improved. No pleural effus ion or pneumothorax. IMPRESSION: Pneumonia at the left lung base, mildly improved. ACT 112: Negative or not required by law. Electronically signed by: Luis Enrique Cotres M.D. 02/02/2025 10:14 AM
--- NOTE | 2025-02-02 11:24 | Hospitalist Progress Note ---
Date of Service February 02, 2025 Assessment & Plan (1) Aspiration pneumonia: Plan: a complication of the respiratory system following colonoscopy (2) Acute hypoxic respiratory failure: (3) Pleuritic chest pain: (4) GERD (gastroesophageal reflux disease): (5) LBBB (left bundle branch block): (6) CAD (coronary artery disease): (7) Dyslipidemia: (8) Ischemic cardiomyopathy: (9) Hypertension: (10) Hyperlipidemia: (11) Depression: (12) Chronic diarrhea: Plan Pleasant 70yo female with history of CAD, LBBB, chronic systolic CHF 2nd ischemic cardiomyopathy, GERD, chronic diarrhea, hyperlipidemia, and HTN who presented for elective colonoscopy. She had been having chronic diarrhea dating back to 2023 and colonoscopy was to rule out any colonic pathology contributing to her symptoms. During her colonoscopy she had vomiting and heavy concern for aspiration as her O2 sats dropped to the 50s during the procedure. Required respiratory assistance by anesthesia and chest x-ray showed LLL pneumonia. #acute hypoxic resp failure 2nd to aspiration pneumonia - -unfortunately her aspiration event leading to aspiration pneumonia/pneumonitis was complication of her procedure -was on high-flow NC but weaned significantly overnight -cxr today with improved LLL infiltrate -clinically she is much improved -day #2 zosyn 4.5gm q8h -MRSA swab negative thus defer on coverage for such -defer on atypical coverage -cont scheduled bronchodilators -cont saline nebs -cont mucinex BID -cont flutter valve/incentive spirometer -lasix 20mg po x 1 with repeat BMP am -sit in chair, ambulate, etc. #GERD - -cont scheduled pepcid #FEN - -advance diet to regular diet today #chronic systolic CHF 2nd to ischemic cardiomyopathy - -only echo scanned in chart is from 2019 showing EF 45% with WMA -cont meto succ -hold losartan -lasix trial - 20mg x 1 -re-eval tomorrow #pleuritic chest discomfort on left - -likely 2nd to aspiration pneumonia -resolved -doubt PE -doubt CAD #hyperlipidemia - -cont statin -cont zetia #chronic diarrhea - -consider stool studies if this recurs #h/o pre-DM - -a1c 6.4% -will admitting counselor #DVT Proph - -add lovenox progressing nicely Admission and Anticipated Discharge Date Admission Date: February 01, 2025 Subjective feels much better today pleuritic pain on left improved able to take deeper breaths minimal amount of sputum no dyspnea at rest tolerating diet O2 requirement is down significantly from prior Review of Systems Review of Systems: gen - no fevers cv - no chest pain, no orthopnea, no edema pulm - no hemoptysis Physical Exam Physical Exam: gen - looks much better today, NAD, coughing at times HENT - MMM, hoarse voice neck - mild JVD, no lymph nodes heart - RRR, s1 s2, no murmur lungs - airation much better today; minimal wheeze b/l; rales L base improved, scant rales R base; no distress today abd - soft NT ND BS+ ext - no edema, pulses b/l feet 2+ psych - a/o x 3 Results & Data Results & Data Vital Signs (Past 12 Hours) Vital Signs Temp Pulse Pulse Resp BP Pulse Ox O2 Del Method 02/02/25 11:03 72 18 98 Nasal Cannula 02/02/25 09:03 Oxymask 02/02/25 07:44 73 02/02/25 07:42 36.4 C L 72 22 114/72 97 High Flow Nasal Cannula 02/02/25 06:59 72 20 97 Oxymask 02/02/25 03:43 36.8 C 76 16 104/71 95 Oxymask 02/01/25 23:35 Oxymask O2 Flow Rate 02/02/25 11:03 10 02/02/25 09:03 13 02/02/25 07:44 02/02/25 07:42 10 02/02/25 06:59 13 02/02/25 03:43 13 02/01/25 23:35 13 Laboratory Results Laboratory Results - last 24 hr 02/02/25 05:24 Sodium 138 Potassium 4.6 Chloride 103 Carbon Dioxide 26 Anion Gap 9 BUN 11 Creatinine 1.05 Est Cr Clr Drug Dosing 55.8 eGFR 56.45 BUN/Creatinine Ratio 10.5 Glucose 135 H Estimat Average Glucose 137 Hemoglobin A1c 6.4 H Calcium 9.0 Magnesium 1.8 Diagnostic Findings Chest X-Ray 02/02/25 09:34 XR chest 1V portable CLINICAL HISTORY: LLL pneumonia, hypoxia, interval change COMPARISON STUDY: 02/01/2025 FINDINGS: Heart size and pulmonary vasculature are normal. There is stranding and hazy opacity at the left lung base with partial obscuration of the left hemidiaphragm, mildly improved. No pleural effusion or pneumothorax. IMPRESSION: Pneumonia at the left lung base, mildly improved. ACT 112: Negative or not required by law. Electronically signed by: Luis Enrique Cortes M.D. 02/02/2025 10:14 AM PG Care Time/CCT Total # of Minutes Spent Total Time Spent with Patient: Total time spent is greater than 50% in coordination of care (as documented) at patient's floor/unit and/or counseling patient: Coding Level of Care Code 78279 SUB INP/OBS CARE 2/35MIN Diagnoses Aspiration pneumonia J69.0 Acute hypoxic respiratory failure J96.01 Pleuritic chest pain R07.81 GERD (gastroesophageal reflux disease) K21.9 LBBB (left bundle branch block) I44.7 CAD (coronary artery disease) I25.10 Dyslipidemia E78.5 Ischemic cardiomyopathy I25.5 Essential hypertension I10 Hypertension type: essential hypertension Mixed hyperlipidemia E78.2 Hyperlipidemia type: mixed hyperlipidemia Depression, unspecified depression type F32.9 Depression Type: unspecified Chronic diarrhea K52.9 (9) Hypertension Hypertension type: essential hypertension Qualified Code(s): I10 - Essential (primary) hypertension (10) Hyperlipidemia Hyperlipidemia type: mixed hyperlipidemia Qualified Code(s): E78.2 - Mixed hyperlipidemia (11) Depression Depression Type: unspecified Qualified Code(s): F32.9 - Major depressive disorder, single episode, unspecified
[2025-02-02] MEDS: FUROSEMIDE 20 MG TAB PO ONE (12:03)
--- NOTE | 2025-02-02 14:30 | Electrocardiogram Report ---
Test Reason : Blood Pressure : */* mmHG Vent. Rate : 72 BPM Atrial Rate : 72 BPM P-R Int : 192 ms QRS Dur : 144 ms QT Int : 424 ms P-R-T Axes : 21 -48 139 degrees QTcB Int : 464 ms Normal sinus rhythm Left axis deviation Left bundle branch block Abnormal ECG When compared with ECG of 01-Feb-2025 16:08, (unconfirmed) No significant change was found Confirmed by Carlo Carreno ([id number]) on 02/02/2025 2:30:44 PM Referred By: Confirmed By: Carlo Carreno
[2025-02-03 07:37] LABS: Anion Gap 5.0 (3-11); Blood Urea Nitrogen 12.0 mg/dl (6-23); Calcium 8.6 mg/dl (8.6-10.3); Carbon Dioxide 29.0 mmol/L (21-32); Chloride 106.0 mmol/L (98-107); Creatinine Clr Calc Pharmacy 50.4 ml/min; Glucose 119.0 mg/dl (70-99(Fasting)); Potassium 4.2 mmol/L (3.5-5.1); Sodium 140.0 mmol/L (136-145)
[2025-02-03] MEDS: ENOXAPARIN INJ 40 MG/0.4 ML SYR SQ SCH (08:53)
[2025-02-03] MEDS: FUROSEMIDE 20 MG TAB PO ONE (09:07)
[2025-02-03] MEDS: AMOXICILLIN/CLAVULANATE 875 MG TAB PO SCH (17:11)
--- NOTE | 2025-02-03 20:09 | Hospitalist Progress Note ---
Date of Service February 03, 2025 Assessment & Plan (1) Aspiration pneumonia: Plan: a complication of the respiratory system following colonoscopy (2) Acute hypoxic respiratory failure: (3) Pleuritic chest pain: (4) GERD (gastroesophageal reflux disease): (5) LBBB (left bundle branch block): (6) CAD (coronary artery disease): (7) Dyslipidemia: (8) Ischemic cardiomyopathy: (9) Hypertension: (10) Hyperlipidemia: (11) Depression: (12) Chronic diarrhea: Plan Pleasant 70yo female with history of CAD, LBBB, chronic systolic CHF 2nd ischemic cardiomyopathy, GERD, chronic diarrhea, hyperlipidemia, and HTN who presented for elective colonoscopy. She had been having chronic diarrhea dating back to 2023 and colonoscopy was to rule out any colonic pathology contributing to her symptoms. During her colonoscopy she had vomiting and heavy concern for aspiration as her O2 sats dropped to the 50s during the procedure. Required respiratory assistance by anesthesia and chest x-ray showed LLL pneumonia. #acute hypoxic resp failure 2nd to aspiration pneumonia - -unfortunately her aspiration event leading to aspiration pneumonia/pneumonitis was complication of her procedure -was on high-flow NC on hospital day #1 but weaned significantly since then; now down to 1-2 L -cxr with LLL infiltrate -clinically improved -day #3 zosyn 4.5gm q8h ---> can d/c and change to augmentin given her improvement -cont scheduled bronchodilators -cont saline nebs -cont mucinex BID -cont flutter valve/incentive spirometer -lasix 20mg po x 1 given yesterday; stable BMP; give another dose today -cont pulmonary toilet with flutter valve, sit in chair, ambulate, lay on right side in bed, etc. #GERD - -cont scheduled pepcid #chronic systolic CHF 2nd to ischemic cardiomyopathy - -only echo scanned in chart is from 2019 showing EF 45% with WMA -cont meto succ -hold losartan -lasix 20mg x 1 again today -will contact [facility] to see when last echo was #pleuritic chest discomfort on left - -likely 2nd to aspiration pneumonia -mild -doubt PE -doubt CAD #hyperlipidemia - -cont statin -cont zetia #chronic diarrhea - -consider stool studies if this recurs but no stool since admission (not unusual following recent bowel prep) #h/o pre-DM - -a1c 6.4% -will mortgage counselor #DVT Proph - -lovenox daily progressing nicely home tomorrow if off O2?? Admission and Anticipated Discharge Date Admission Date: February 01, 2025 Subjective sitting in chair feeling much better cough continues, getting much more sputum up today no dyspnea at rest or with exertion during my visit I shut the O2 off - sats were about 89% in RA, annie with taking deep breaths 1 L NC O2 -- sats 95% no new complaints no stool since admission tele overnight wnl Review of Systems Review of Systems: gen - no fevers or chills cv - mild pleuritic pain on left at times pulm - no dyspnea GI - no abd pain Physical Exam Physical Exam: gen - sitting in chair, NAD, coughing HENT - MMM, hoarse voice modestly improved neck - no JVD, no lymph nodes heart - RRR, s1 s2, no murmur lungs - still mild end-exp wheezes b/l; rales L base about 1/[address] up back; minimal dry rales R base; no increased work of breathing abd - soft NT ND BS+ ext - no edema, pulses b/l feet 2+ Results & Data Results & Data Vital Signs (Past 12 Hours) Vital Signs Temp Pulse Pulse Pulse Resp BP BP 02/03/25 19:54 72 17 02/03/25 19:40 36.9 C 70 20 120/79 02/03/25 16:07 37.0 C 76 20 97/65 L 02/03/25 13:59 82 02/03/25 11:12 36.8 C 71 20 103/68 02/03/25 11:02 77 16 Pulse Ox O2 Del Method O2 Flow Rate 02/03/25 19:54 91 Nasal Cannula 1 02/03/25 19:40 93 High Flow Nasal Cannula 1 02/03/25 16:07 92 High Flow Nasal Cannula 1 02/03/25 13:59 02/03/25 11:12 95 Nasal Cannula 2 02/03/25 11:02 94 Nasal Cannula 2 Laboratory Results Laboratory Results - last 24 hr 02/03/25 06:34 Sodium 140 Potassium 4.2 Chloride 106 Carbon Dioxide 29 Anion Gap 5 BUN 12 Creatinine 1.17 Est Cr Clr Drug Dosing 50.4 eGFR 49.58 BUN/Creatinine Ratio 10.3 Glucose 119 H Calcium 8.6 PG Care Time/CCT Total # of Minutes Spent Total Time Spent with Patient: Total time spent is greater than 50% in coordination of care (as documented) at patient's floor/unit and/or counseling patient: Coding Level of Care Code 47265 SUB INP/OBS CARE 2MIN Diagnoses Aspiration pneumonia J69.0 Acute hypoxic respiratory failure J96.01 Pleuritic chest pain R07.81 GERD (gastroesophageal reflux disease) K21.9 LBBB (left bundle branch block) I44.7 CAD (coronary artery disease) I25.10 Dyslipidemia E78.5 Ischemic cardiomyopathy I25.5 Essential hypertension I10 Hypertension type: essential hypertension Mixed hyperlipidemia E78.2 Hyperlipidemia type: mixed hyperlipidemia Depression, unspecified depression type F32.9 Depression Type: unspecified Chronic diarrhea K52.9 (9) Hypertension Hypertension type: essential hypertension Qualified Code(s): I10 - Essential (primary) hypertension (10) Hyperlipidemia Hyperlipidemia type: mixed hyperlipidemia Qualified Code(s): E78.2 - Mixed hyperlipidemia (11) Depression Depression Type: unspecified Qualified Code(s): F32.9 - Major depressive disorder, single episode, unspecified
[2025-02-04 06:56] LABS: Anion Gap 7.0 (3-11); Blood Urea Nitrogen 15.0 mg/dl (6-23); Calcium 8.9 mg/dl (8.6-10.3); Carbon Dioxide 28.0 mmol/L (21-32); Chloride 105.0 mmol/L (98-107); Creatinine Clr Calc Pharmacy 57.8 ml/min; Glucose 119.0 mg/dl (70-99(Fasting)); Magnesium 2.1 mg/dl (1.7-2.4); Potassium 4.2 mmol/L (3.5-5.1); Sodium 140.0 mmol/L (136-145)
[2025-02-04] MEDS: FUROSEMIDE 40 MG TAB PO ONE (08:31)
--- NOTE | 2025-02-05 04:53 | Hospitalist Progress Note ---
Date of Service February 04, 2025 Assessment & Plan (1) Aspiration pneumonia: Plan: a complication of the respiratory system following colonoscopy (2) Acute hypoxic respiratory failure: (3) Pleuritic chest pain: (4) GERD (gastroesophageal reflux disease): (5) LBBB (left bundle branch block): (6) CAD (coronary artery disease): (7) Dyslipidemia: (8) Ischemic cardiomyopathy: (9) Hypertension: (10) Hyperlipidemia: (11) Depression: (12) Chronic diarrhea: Plan Pleasant 70yo female with history of CAD, LBBB, chronic systolic CHF 2nd ischemic cardiomyopathy, GERD, chronic diarrhea, hyperlipidemia, and HTN who presented for elective colonoscopy. She had been having chronic diarrhea dating back to 2023 and colonoscopy was to rule out any colonic pathology contributing to her symptoms. During her colonoscopy she had vomiting and heavy concern for aspiration as her O2 sats dropped to the 50s during the procedure. Required respiratory assistance by anesthesia and chest x-ray showed LLL pneumonia. #acute hypoxic resp failure 2nd to aspiration pneumonia - -nearly resolved; by the afternoon today she was off supplemental O2 -unfortunately her aspiration event leading to aspiration pneumonia/pneumonitis was complication of her procedure -was on high-flow NC on hospital day #1 but weaned significantly since then; now off O2 as of today -cxr's this admission with LLL infiltrate -s/p 3 days of IV zosyn, then over to augmentin -cont scheduled bronchodilators -cont saline nebs -cont mucinex BID -cont flutter valve/incentive spirometer -lasix 20mg po x 1 given yesterday; stable BMP; give another dose today - try 40mg x 1 -cont pulmonary toilet with flutter valve, sit in chair, ambulate, lay on right side in bed, etc. #GERD - -cont scheduled pepcid #chronic systolic CHF 2nd to ischemic cardiomyopathy - -only echo scanned in chart is from 2019 showing EF 45% with WMA -was able to get most recent echo - EF 50% on 07/2024 echo (done at Dr Tan's office, [facility] -cont meto succ -hold losartan -lasix again today - try 40mg PO x 1 #pleuritic chest discomfort on left - -likely 2nd to aspiration pneumonia - resolved -doubt PE -doubt CAD #hyperlipidemia - -cont statin -cont zetia #chronic diarrhea - -consider stool studies if this recurs but only 1 stool since admission #h/o pre-DM - -a1c 6.4% -provided relocation counselor today; she is aware of pre-DM, has been following with PCP for this #DVT Proph - -lovenox daily progressing nicely anticipate d/c tomorrow am to home Admission and Anticipated Discharge Date Admission Date: February 01, 2025 Subjective Ms Bere feeling MUCH better having good sputum production denies dyspnea at rest or with exertion remains on 1 L NC O2 denies pleuritic pain on left eating well had a bowel movement tele overnight wnl Review of Systems Review of Systems: gen - no fevers or chills cv - no chest pain pulm - wheezing improved GI - no n/v/pain Physical Exam Physical Exam: gen - sitting in chair, NAD, looks great today HENT - MMM, hoarse voice nearly resolved neck - no JVD, no lymph nodes heart - RRR, s1 s2, no murmur lungs - wheezes b/l are resolved; rales L base about 1/[address] up back; scant dry rales R base; no increased work of breathing; airation much improved abd - soft NT ND BS+ ext - no edema, pulses b/l feet 2+ Results & Data Results & Data Vital Signs (Past 12 Hours) Vital Signs Temp Pulse Pulse Pulse Resp BP BP 02/04/25 15:30 36.8 C 78 18 102/70 02/04/25 15:19 69 16 02/04/25 11:16 78 16 02/04/25 10:57 36.9 C 74 18 115/79 02/04/25 08:00 71 02/04/25 08:00 02/04/25 07:14 36.5 C 67 19 112/70 02/04/25 07:05 66 18 Laboratory Results Laboratory Results - last 24 hr 02/04/25 06:19 Sodium 140 Potassium 4.2 Chloride 105 Carbon Dioxide 28 Anion Gap 7 BUN 15 Creatinine 1.02 Est Cr Clr Drug Dosing 57.8 eGFR 58.45 BUN/Creatinine Ratio 14.7 Glucose 119 H Calcium 8.9 Magnesium 2.1 Diagnostic Findings echo from 07/2024 - done as outpatient via [email or web address] system - EF 50% PG Care Time/CCT Total # of Minutes Spent Total Time Spent with Patient: Total time spent is greater than 50% in coordination of care (as documented) at patient's floor/unit and/or counseling patient: Coding Level of Care Code 47575 SUB INP/OBS CARE Diagnoses Aspiration pneumonia J69.0 Acute hypoxic respiratory failure J96.01 Pleuritic chest pain R07.81 GERD (gastroesophageal reflux disease) K21.9 LBBB (left bundle branch block) I44.7 CAD (coronary artery disease) I25.10 Dyslipidemia E78.5 Ischemic cardiomyopathy I25.5 Essential hypertension I10 Hypertension type: essential hypertension Mixed hyperlipidemia E78.2 Hyperlipidemia type: mixed hyperlipidemia Depression, unspecified depression type F32.9 Depression Type: unspecified Chronic diarrhea K52.9 (9) Hypertension Hypertension type: essential hypertension Qualified Code(s): I10 - Essential (primary) hypertension (10) Hyperlipidemia Hyperlipidemia type: mixed hyperlipidemia Qualified Code(s): E78.2 - Mixed hyperlipidemia (11) Depression Depression Type: unspecified Qualified Code(s): F32.9 - Major depressive disorder, single episode, unspecified
[2025-02-05 07:22] VITALS: BP 138/103; RESP 20; TEMP 98.6; O2SAT 95
[2025-02-05 07:55] LABS: Anion Gap 7.0 (3-11); Blood Urea Nitrogen 19.0 mg/dl (6-23); Calcium 9.3 mg/dl (8.6-10.3); Carbon Dioxide 28.0 mmol/L (21-32); Chloride 104.0 mmol/L (98-107); Creatinine Clr Calc Pharmacy 62.3 ml/min; Glucose 126.0 mg/dl (70-99(Fasting)); Potassium 4.1 mmol/L (3.5-5.1); Sodium 139.0 mmol/L (136-145)
[2025-02-05] MEDS: FUROSEMIDE 20 MG TAB PO ONE (09:05)
--- NOTE | 2025-02-05 10:03 | Discharge Summary ---
Discharge Summary Date of Service date of admission - February 01, 2025 date of discharge - February 05, 2025 Principal Dx & Hospital Course #1 = Principal Diagnosis (1) Aspiration pneumonia: a complication of the respiratory system following colonoscopy (2) Acute hypoxic respiratory failure: (3) Pleuritic chest pain: (4) GERD (gastroesophageal reflux disease): (5) LBBB (left bundle branch block): (6) CAD (coronary artery disease): (7) Dyslipidemia: (8) Ischemic cardiomyopathy: (9) Hypertension: (10) Hyperlipidemia: (11) Depression: (12) Chronic diarrhea: Plan Pleasant 70yo female with history of CAD, LBBB, chronic systolic CHF 2nd ischemic cardiomyopathy, GERD, chronic diarrhea, hyperlipidemia, and HTN who presented for elective colonoscopy. She had been having chronic diarrhea dating back to 2023 and colonoscopy was to rule out any colonic pathology contributing to her symptoms. During her colonoscopy she had vomiting and heavy concern for aspiration as her O2 sats dropped to the 50s during the procedure. Required respiratory assistance by anesthesia and chest x-ray showed LLL infiltrates. #acute hypoxic resp failure 2nd to aspiration pneumonia/aspiration pneumonitis - -unfortunately her aspiration event leading to aspiration pneumonia/pneumonitis was a complication of her colonoscopy procedure -was on high-flow NC on hospital day #1, but O2 requirement weaned off about 24 hours prior to discharge home -chest x-ray on day of admission showed a LLL infiltrate -s/p 3 days of IV zosyn, followed by PO Augmentin -received supportive care including scheduled bronchodilators, saline neb treatments, mucinex -also received several days of oral lasix -at discharge advised - -Augmentin 875mg BID x 3 days -albuterol HFA prn -ongoing use of flutter valve, etc. -repeat chest x-ray in 4-6 weeks to ensure radiographic clearance of infiltrates #pleuritic chest discomfort on left - -likely 2nd to aspiration pneumonia - resolved -doubt PE -doubt CAD - no evidence of ACS while here #chronic systolic CHF 2nd to ischemic cardiomyopathy - -most recent echo - EF 50% on 07/2024 echo (done at Dr Todd Tan's office, [facility]) -continue meto tartrate 25mg BID -continue losartan 50mg daily -gave several days of oral lasix while here with stable electrolytes & creatinine -she appeared compensated on exam on day of discharge #hyperlipidemia - -cont statin -cont zetia #GERD - -cont scheduled pepcid #chronic diarrhea - -minimal stools while hospitalized in the setting of recent bowel prep for colonoscopy -of note - although the colonoscopy was not completed in its entirety, grossly the endoscopy was normal #h/o pre-DM - -Hba1c 6.4% -she is aware of pre-DM, has been following with PCP for this Notes For Next Care Provider repeat cxr in 4-6 weeks as outpatient Medication Changes From Visit 1. Augmentin 875mg BID x 3 days 2. Albuterol HFA prn 3. OTC mucinex prn 4. Pepcid 20mg BID scheduled for 1-2 weeks 5. Hycodan cough syrup prn Admission HPI Per Admitting Provider Pleasant 70yo female with history of CAD, LBBB, chronic systolic CHF 2nd ischemic cardiomyopathy, GERD, chronic diarrhea, hyperlipidemia, and HTN who presented today for elective colonoscopy. She had been having chronic diarrhea dating back to 2023 and colonoscopy was to rule out any colonic pathology contributing to her symptoms. She prepped at home in usual fashion and had no difficulties with such. She has felt well and denies any recent illnesses. Denies any h/o asthma, COPD, or other lung disease. During her colonoscopy (Dr Vj Andersen from [facility] was performing the endoscopy) she was noted to have multiple episodes of vomiting of mainly clear liquid when she was in the left lateral decubitus position for the procedure. The procedure was terminated immediately. By report from anesthesia she desatted into the 50s, oral airway was inserted, and bag/mask ventilation was initiated with 100% FiO2. O2 sats improved to the 90s with these measures. Initial exam revealed extensively wheezing. She was taken to the PACU. While in PACU a chest x-ray showed LLL infiltrates. Due to persistent hypoxia and the concern for aspiration pneumonitis she was sent to the ER for evaluation. During her ER stay she was ultimately placed on high-flow NC, 35 L and 70% FiO2. Albuterol was given for wheezing. Patient reported that the albuterol helped her wheezing. Morphine was given for a left-sided pleuritic pain she was experiencing. She had hoarse voice and ongoing cough, harsh cough. Patient states she had none of these symptoms prior to her procedure. Discharge Exam gen - sitting in chair, NAD, looks well HENT - MMM, hoarse voice nearly resolved neck - no JVD heart - RRR, s1 s2, no murmur lungs - minimal wheezes b/l; minimal rales L base; rales R base resolved; no increased work of breathing; airation much improved abd - soft NT ND BS+ ext - no edema, pulses b/l feet 2+ Discharge Plan Discharge Items Patient Disposition: Home - Self-Care Reason For Visit: ACUTE RESPIRATORY FAILURE due to ASPIRATION EVENT Discharge Diagnosis: 1. acute respiratory failure - resolved 2. aspiration pneumonitis/pneumonia - resolving 3. colonoscopy by Dr Vj Andersen - although the full endoscopy was not completed, what was done showed normal findings 4. pleuritic chest pain on left - due to #2 above 5. reflux disease 6. history of cardiomyopathy 7. pre-diabetes Condition on Discharge: Good Activity: As commented below Activity Comment: gradually increase activities over the next week, as tolerated Non-emergency contact: Primary Care Provider Call non-emergency contact if: you have any medication questions, your symptoms worsen and you have a fever Follow-up/Referrals: Gabriela Dc PA-C [Primary Care Provider] - (please see Ms Dc in 3-4 days for hospital follow-up ) Diet: Heart Healthy Addtl Attending Provider Instructions: Ms Blackburn, You were hospitalized after developing acute respiratory failure from an aspiration event suffered during your colonoscopy. Aspiration is when stomach contents, food, beverage, etc travels through the vocal cords, down the windpipe, and into the lungs. In your case you vomited gastric juices/stomach acid during the colonoscopy which then led to the aspiration. In most cases aspiration of stomach acid causes "aspiration pneumonitis." This is when the lungs suffer an injury from the aspiration, leading to cough, wheezing, shortness of breath, etc. Your aspiration event was quite severe as you needed a considerable amount of oxygen early in your hospital stay. In about 30-40% of aspiration events there is also aspiration pneumonia. This is when bacterial infection sets up in the lungs. You had evidence of aspiration pneumonia in the left lung at the bottom. You received IV then oral antibiotics. You have recovered nicely during your hospital stay. Recommendations - 1. antibiotics - -amoxicillin-clavulanate 875mg twice daily x 3 more days; take your first dose upon return home; take with food -most common side effect - diarrhea 2. for cough/congestion - -kera-grw-pkzfkzg mucinex up to 1200mg twice daily as needed -hycodan (hydrocodone-homatropine) cough syrup - 5ml every 6 hours as needed -this is a narcotic containing cough syrup -do not drive a car if taking this medicine -do not drink alcohol if taking this medicine -this medicine could cause you to feel sleepy -this medicine may cause constipation -albuterol via spacer device - 2 puffs every 4 hours as needed for cough/wheeze/shortness of breath; see handout on spacer device 3. I would increase your pepcid (famotidine) to 20mg twice daily at least for the next couple of weeks to prevent any acid reflux episodes 4. continue your flutter valve for another 4-5 days 5. light walking, light activities, etc are ok; heavy exertional activity may lead to shortness of breath during your recovery period. Be sure to listen to your body and avoid "over doing-it" 6. you may have cough/congestion/etc for another 1-2 weeks while your lungs are healing 7. I would recommend a repeat chest x-ray in 4-6 weeks to ensure all the pneumonia and pneumonitis has resolved fully Follow-up - see separate section Return to [facility] if - -you have fevers over 100 degrees -you have worsening shortness of breath -you have worsening chest pains -you develop severe diarrhea (more than 3 liquid stools in 24 hours) -any other concerns It was my pleasure to care for you! -Jaime Martínez, hospitalist Pending Studies at Discharge: No Stand-Alone Forms: My [facility], Smoking Cessation Medications and DC Order Prescriptions: New albuterol sulfate [Ventolin HFA] 90 mcg/actuation HFA aerosol inhaler 2 inh inhalation Q4H PRN (Reason: cough/wheeze/shortness of breath) Qty: 6.7 0RF Rx Instructions: use with spacer device hydrocodone-homatropine [Hycodan] 5-1.5 mg/5 mL (5 mL) solution 5 ml PO Q6H PRN (Reason: cough) Qty: 100 0RF Rx Instructions: may cause sedation Continued epinephrine [EpiPen] 0.3 mg/0.3 mL Auto-Injector 0.3 mg IM Q3H PRN (Reason: ALLERGIES) aspirin 81 mg Tablet,Delayed Release (Dr/Ec) 81 mg PO QAM Qty: 90 3RF nitroglycerin [Nitrostat] 0.4 mg Tablet, Sublingual 0.4 mg sublingual UD PRN (Reason: chest pain) Qty: 1 0RF Rx Instructions: 1 tab SL q5min prn chest pain; max 3 doses in 15 minutes. losartan 50 mg Tablet 50 mg PO QAM venlafaxine 37.5 mg capsule,extended release 24hr 37.5 mg PO DAILY rosuvastatin 40 mg tablet 40 mg PO HS metoprolol tartrate 25 mg tablet 25 mg PO BID ezetimibe 10 mg tablet 10 mg PO HS Changed famotidine [Acid Acid Dumper (famotidine)] 20 mg tablet 20 mg PO BID Qty: 0 0RF Discharge Orders: Discharge Order (Routine); Ordered 02/05/25 Ordered By: Jaime Montes/Other Patient Handouts: Prediabetes, Using an Inhaler with a Spacer, 5 Steps for Eating Healthier Admission Data Admit Date/Time: 02/01/25 18:28 Attending Provider: Jaime Martínez Admit Provider: Jaime Martínez Primary Care Provider: Gabriela Dc Other Interventions: Discharge Summary Assessment (RN) Last Done: 02/05/25 10:17 Hospital Stay Data Procedures Performed colonoscopy - Vj Andersen MD - [facility] Findings: - The rectum, sigmoid colon, descending colon, splenic flexure, transverse colon, hepatic flexure and ascending colon appeared normal. Impression: - The procedure was aborted due to the patient's respiratory instability (bronchospasm) and the patient's respiratory instability. - The rectum, sigmoid colon, descending colon, splenic flexure, transverse colon, hepatic flexure and ascending colon are normal. - No specimens collected. Diagnostic Imagining Performed Chest X-Ray 02/02/25 09:34 XR chest 1V portable CLINICAL HISTORY: LLL pneumonia, hypoxia, interval change COMPARISON STUDY: 02/01/2025 FINDINGS: Heart size and pulmonary vasculature are normal. There is stranding and hazy opacity at the left lung base with partial obscuration of the left hemidiaphragm, mildly improved. No pleural effusion or pneumothorax. IMPRESSION: Pneumonia at the left lung base, mildly improved. ACT 112: Negative or not required by law. Electronically signed by: Luis Enrique Cortes M.D. 02/02/2025 10:14 AM Pending Results Patient Have Any Pending Studies at Discharge: No Discharge Instructions Given to Patient (Per Discharging Provider) Ms Blackburn, Quintin were hospitalized after developing acute respiratory failure from an aspiration event suffered during your colonoscopy. Aspiration is when stomach contents, food, beverage, etc travels through the vocal cords, down the windpipe, and into the lungs. In your case you vomited gastric juices/stomach acid during the colonoscopy which then led to the aspiration. In most cases aspiration of stomach acid causes "aspiration pneumonitis." This is when the lungs suffer an injury from the aspiration, leading to cough, wheezing, shortness of breath, etc. Your aspiration event was quite severe as you needed a considerable amount of oxygen early in your hospital stay. In about 30-40% of aspiration events there is also aspiration pneumonia. This is when bacterial infection sets up in the lungs. You had evidence of aspiration pneumonia in the left lung at the bottom. You received IV then oral antibiotics. You have recovered nicely during your hospital stay. Recommendations - 1. antibiotics - -amoxicillin-clavulanate 875mg twice daily x 3 more days; take your first dose upon return home; take with food -most common side effect - diarrhea 2. for cough/congestion - -odeu-ijk-iwrmxyh mucinex up to 1200mg twice daily as needed -hycodan (hydrocodone-homatropine) cough syrup - 5ml every 6 hours as needed -this is a narcotic containing cough syrup -do not drive a car if taking this medicine -do not drink alcohol if taking this medicine -this medicine could cause you to feel sleepy -this medicine may cause constipation -albuterol via spacer device - 2 puffs every 4 hours as needed for cough/wheeze/shortness of breath; see handout on spacer device 3. I would increase your pepcid (famotidine) to 20mg twice daily at least for the next couple of weeks to prevent any acid reflux episodes 4. continue your flutter valve for another 4-5 days 5. light walking, light activities, etc are ok; heavy exertional activity may lead to shortness of breath during your recovery period. Be sure to listen to your body and avoid "over doing-it" 6. you may have cough/congestion/etc for another 1-2 weeks while your lungs are healing 7. I would recommend a repeat chest x-ray in 4-6 weeks to ensure all the pneumonia and pneumonitis has resolved fully Follow-up - see separate section Return to [facility] if - -you have fevers over 100 degrees -you have worsening shortness of breath -you have worsening chest pains -you develop severe diarrhea (more than 3 liquid stools in 24 hours) -any other concerns It was my pleasure to care for you! -Jaime Martínez, hospitalist Total Time Total Time Spent Total Time Spent (In Minutes): 40 Coding Level of Care Code 25236 INP/OBS DISCH >30 MIN Diagnoses Aspiration pneumonia J69.0 Acute hypoxic respiratory failure J96.01 Pleuritic chest pain R07.81 GERD (gastroesophageal reflux disease) K21.9 LBBB (left bundle branch block) I44.7 CAD (coronary artery disease) I25.10 Dyslipidemia E78.5 Ischemic cardiomyopathy I25.5 Essential hypertension I10 Hypertension type: essential hypertension Mixed hyperlipidemia E78.2 Hyperlipidemia type: mixed hyperlipidemia Depression, unspecified depression type F32.9 Depression Type: unspecified Chronic diarrhea K52.9
[2025-02-05 10:19] VITALS: PULSE 72
== END 2025-02-05 10:45 | disposition home or self-care (01) | DRG 205 ==
LOC: ED 16:24 → 2S 18:28